=== PATIENT | female | born 1960 | race Caucasian/White ===

== ENCOUNTER 2017-03-14 22:42 | Inpatient (IN) ==
[2017-03-14 23:16] LABS: ABG Base Excess 9.5 MMOL/L (-2.5-2.5); ABG Oxygen Saturation 88.9 % (95-100); ABG PH 7.304 (7.35-7.45); ABG PO2 58.8 MM HG (80-95); ABG TCO2 35.5 MMOL/L (23-27); Allen Test Positive
[2017-03-14] MEDS ORDERED: ETOMIDATE 20 MG/10 ML VIAL IV ONE (23:21)
[2017-03-14] MEDS ORDERED: SUCCINYLCHOLINE 200 MG/10 ML VIAL ONE (23:21)
--- NOTE | 2017-03-14 23:36 | Hospitalist History & Physical ---
Assessment and Plan (1) Acute and chronic respiratory failure ([id number]) Status: Acute Assessment and plan: Unfortunately patient with severe exacerbation of her COPD as evidenced by failed outpatient treatment and the need for intubation Continue steroids IV Solu-Medrol 60 mg every 8 hours Albuterol every 2 hours with Atrovent every 6 hours Change azithromycin to levofloxacin Consult Dr. Gary her squirrel man in the morning for evaluation and management and vent management Check sputum cultures, community acquired pneumonia antigens Follow-up chest x-ray, check ABGs after intubation in the morning Lung protective low tidal volume ventilation strategy Overall I suspect she has a poor prognosis given the severity of her illness and her obvious poor reserve, she continues to smoke Current Visit: Yes Qualifiers: Respiratory failure complication: hypoxia and hypercapnia Qualified Code(s) : J96.21 - Acute and chronic respiratory failure with hypoxia; J96.22 - Acute and chronic respiratory failure with hypercapnia (2) Severe protein-calorie malnutrition Status: Acute Assessment and plan: Malnourished appearance with low albumin, likely secondary to her underlying severe pulmonary disease Current Visit: Yes (3) Elevated brain natriuretic peptide (BNP) level Status: Acute Assessment and plan: No history of heart disease, recent echocardiogram without significant dysfunction. Suspect that the elevated BNP is secondary to COPD related pulmonary hypertension Current Visit: Yes (4) Acute respiratory acidosis Status: Acute Current Visit: Yes (5) Leukocytosis Status: Acute Current Visit: Yes History of Present Illness Chief complaint: Shortness of breath History of present illness: Ms. Morris is a 56 year old female with past medical history of COPD, severe by FEV1 recently, depression/anxiety that presented with a chief complaint of shortness of breath. Onset gradual. Duration about 1 week. Associated with wheezing. Not alleviated by prednisone, azithromycin, and nebulizers which she has been doing since she saw Dr. Gary in clinic on Friday. Her illness has gotten progressively worse until today she presented again for care and was sent to [facility] emergency department for hypoxemia and also there she was found to have hypercapnia worse than her baseline, acute on chronic respiratory acidosis. She was transferred to [facility] for higher level of care after being given 125 mg Solu-Medrol, 3 nebulizer treatments at the other hospital. Upon arrival to our emergency department she was initially reluctant to receive intubation but ultimately consented after an ABG returned a continued acute hypoxemic and hypercapnic respiratory failure and her work of breathing had not improved with prior interventions. She was intubated at the time of my exam. I reviewed the workup performed at both hospitals including lab and imaging data. I discussed her case with emergency department providers. Home Medications Medication Instructions Recorded Confirmed Type ALPRAZolam [Xanax] 0.5 mg PO TID 03/14/17 03/14/17 History Albuterol Sulfate [Proair HFA] 2 puff INH Q4H PRN 03/14/17 03/14/17 History Albuterol/Ipratropium Neb [Duoneb] 3 ml RESP TX RT Q6H PRN 03/14/17 03/14/17 History Budesonide/Formoterol 160-4.5 2 puff INH DAILY 03/14/17 03/14/17 History [Symbicort 160-4.5] Citalopram [CeleXA] 40 mg PO DAILY 03/14/17 03/14/17 History Cyproheptadine HCl 4 mg PO TID 03/14/17 03/14/17 History Gabapentin 600 mg PO TID 03/14/17 03/14/17 History Oxycodone HCl/Acetaminophen 1 each PO Q6H 03/14/17 03/14/17 History [Percocet 10-325 mg Tablet] predniSONE TAB [PredniSONE] 10 mg PO BID 03/14/17 03/14/17 History Allergies Allergy/AdvReac Type Severity Reaction Status Date / Time Amoxicillin Allergy Severe BLISTER Verified 07/17/15 05:29 Medical,Surgical,& Family Hx - Medical History Cardio: History of: Hypertension Respiratory: History of: Asthma, COPD (on home O2), Pneumonia Musculoskeletal: History of: Musculoskeletal Problems Hematology: History of: Anemia - Surgical History Cardiac Surgeries: Sugical HX of: Cardiac Catheterization Abdominal Surgeries: Surgical HX of: Abdominal Surgery, Appendectomy, Cholecystectomy Reproductive Surgeries: Surgical HX of;: Section, Tubal Ligation Orthopedic Surgeries: Surgical HX of;: Orthopedic Surgery (ORIF-right hip, ACL- both knees, arm and elbow) - Family History Family History: Reports;: Family Hypertension - Social History Smoking Status: Current every day smoker Frequency of Alcohol Use: None Type of Drug Use: None ROS unobtainable: due to endotracheal tube Exam - Constitutional Vitals: Period Temp Pulse Resp BP Sys/Rodriguez Pulse Ox Last 24 Hr 98.0 F-98.0 F 97-97 23-23 153-153/86-86 90 General appearance: under weight, other (White female appears much older than stated age) Exam: - Eye Eye exam: [Present: EOMI. Absent: conjunctival injection, scleral icterus Pupils: Present: ALECIA] - ENT ENT exam: [Present: normal external ear exam, normal oropharynx] - Expanded ENT Exam Mouth exam: Present: [moist, ET tube in place] - Neck Neck exam: Present: [normal inspection. Absent: lymphadenopathy, thyromegaly] - Respiratory Respiratory exam: Present: [Coarse with expiratory wheezing diffusely on vent] - Cardiovascular Cardiovascular exam: Present: [regular rate and rhythm]. Absent: [diastolic murmur, systolic murmur] - Expanded Cardiovascular Exam Peripheral pulses: [2+: posterior tibialis (L), posterior tibialis (R)] - GI/Abdominal GI/Abdominal exam: Present: [normal bowel sounds, soft.] Absent: [distended, hyperactive bowel sounds, hypoactive bowel sounds, organomegaly, tenderness, rebound] - Extremities Exam Extremities exam: [Absent: edema] - Neurological Exam Neurological exam: [Present: Sedated with propofol and not following commands, recently intubated] - Skin Skin exam: [Present: warm, dry. Absent: diaphoretic, rash] Results - EKG EKG results: sinus rhythm, normal axis, normal QRS, normal ST/T - Diagnostic Findings Procedure: Chest x-ray: report reviewed by me
[2017-03-14] MEDS ORDERED: PROPOFOL 1,000 MG/100 ML BOTTLE IV ONE (23:47)
--- NOTE | 2017-03-15 00:10 | Emergency Department Note ---
Clovis Storey Brittany, am scribing for, and in the presence of, Charu Wilhelm DO 23:20. IChoco Debra, DO, personally performed the services described in this documentation, ascribed by Jaja Brannon in my presence, and it is both accurate and complete . Arrival - Arrival Chief Complaint: Shortness of Breath ED Nursing Triage Note: C/O Shortness of breath. Onset since last Friday and has been treated with breathing treatments/steroids/antibiotics without relief. Pt has history of COPD. Pt is awake, alert and oriented x 3 at this time. Pt does not wish to be intubated when asked by Dr. Wilhelm Mode of Arrival: Stretcher Limitations: No Limitations Source: Patient, RN Notes Reviewed Time Seen by Provider: 03/14/17 22:45 - History of Present Illness HPI Narrative: Patient is a 56 y/o white female with a history of COPD exacerbation and Chronic Respiratory Failure presenting to the ED by EMS with shortness of breath Last hospitalization for this was on 08/23/15. Per triage note patient has been short of breath for the past week. Patient was seen at primary care clinic on Friday and today for upper respiratory symptoms and shortness of breath. While there today patient received 3 breathing tx's, steroids, and antibiotics. After showing no improvement patient was transferred to local hospital and after showing little to no improvement there patient was sent here for further evaluation. Patient upon ED arrival appears to be very short of breath and is working to breathe which will make her history limited. Daughter and patient are currently discussing about decisions for intubation if needed. No other complaint/pain. Onset (ago): hour(s) Consistency: constant Date of Last Menstrual Period: PM Allergies/Adverse Reactions: Allergies Allergy/AdvReac Type Severity Reaction Status Date / Time Amoxicillin Allergy Severe BLISTER Verified 07/17/15 05:29 Home Medications: Home Medications Medication Instructions Recorded Confirmed Type ALPRAZolam [Xanax] 0.5 mg PO TID 03/14/17 03/14/17 History Albuterol Sulfate [Proair HFA] 2 puff INH Q4H PRN 03/14/17 03/14/17 History Albuterol/Ipratropium Neb [Duoneb] 3 ml RESP TX RT Q6H PRN 03/14/17 03/14/17 History Budesonide/Formoterol 160-4.5 2 puff INH DAILY 03/14/17 03/14/17 History [Symbicort 160-4.5] Citalopram [CeleXA] 40 mg PO DAILY 03/14/17 03/14/17 History Cyproheptadine HCl 4 mg PO TID 03/14/17 03/14/17 History Gabapentin 600 mg PO TID 03/14/17 03/14/17 History Oxycodone HCl/Acetaminophen 1 each PO Q6H 03/14/17 03/14/17 History [Percocet 10-325 mg Tablet] predniSONE TAB [PredniSONE] 10 mg PO BID 03/14/17 03/14/17 History Review of System - Review of System 12 point system: reviewed and no additional remarkable complaints except as stated - Review of System Constitutional: Absent: chills, fever Eyes: Absent: vision change Head/Ears/Nose/Throat: Present: nasal drainage Respiratory: Present: cough, respiratory distress Cardiovascular: Absent: chest pain, palpitations Gastrointestinal: Absent: abdominal pain, nausea, vomiting, diarrhea, constipation Genitourinary female: Absent: dysuria, frequency, urgency Musculoskeletal: Absent: arm pain, back pain, leg pain, neck pain Skin: Absent: rash Neurological: Absent: headache Psychiatric: Absent: anxiety, depression Medical,Surgical,& Family Hx - Medical History Cardio: History of: Hypertension Respiratory: History of: Asthma, COPD (on home O2), Pneumonia Musculoskeletal: History of: Musculoskeletal Problems Hematology: History of: Anemia - Surgical History Cardiac Surgeries: Sugical HX of: Cardiac Catheterization Abdominal Surgeries: Surgical HX of: Abdominal Surgery, Appendectomy, Cholecystectomy Reproductive Surgeries: Surgical HX of;: Section, Tubal Ligation Orthopedic Surgeries: Surgical HX of;: Orthopedic Surgery (ORIF-right hip, ACL- both knees, arm and elbow) - Family History Family History: Reports;: Family Hypertension - Social History Smoking Status: Current every day smoker Frequency of Alcohol Use: None Type of Drug Use: None Exam Vital Signs: Vital Signs Temperature 98.0 F 03/14/17 22:42 Pulse Rate 97 H 03/14/17 22:42 Respiratory Rate 23 03/14/17 22:42 Blood Pressure 153/86 03/14/17 22:42 O2 Sat by Pulse Oximetry 90 L 03/14/17 22:42 - General General appearance: alert, in distress (appears to be working to breathe) - Head Head exam: Present: atraumatic, normocephalic, normal inspection - Eye Eye exam: Present: normal appearance, PERRL, EOMI - ENT ENT exam: Present: normal exam, normal oropharynx - Neck Neck exam: Present: normal inspection, full ROM, trachea midline - Chest Chest inspection: Present: normal inspection, symmetric chest wall rise - Respiratory Respiratory exam: Present: respiratory distress, rhonchi (rhonchi on the left), wheezes (inspiratory and expiratory wheezes bilaterally). Absent: normal lung sounds bilaterally - Cardiovascular Cardiovascular exam: Present: regular rate, normal rhythm, normal heart sounds - Abdominal Exam Abdominal exam: Present: soft, normal bowel sounds - Extremities Exam Extremities exam: Present: normal inspection - Back Exam Back exam: Present: normal inspection - Neurological Exam Neurological exam: Present: alert, oriented X3, CN II-XII intact. Absent: motor sensory deficit - Psychiatric Psychiatric exam: Present: normal affect, normal mood - Skin Skin exam: Present: warm, dry, intact, normal color Course Course Narrative: pt intubated without difficulty. Hospitalist, DR Robles to admit Procedures - Intubation Time out performed: Yes sedative: Etomidate Mg Given: 20 paralytic: Succinylcholine Mg Given: 100 Laryngoscope: Nu ET Tube Size: 7.5 ET Tube Uncuffed: Yes Tube Secured Depth (cm): 23 Tube Secured Location: lips Tube Placement Confirmation: equal breath sounds bilaterally, confirmation detector color change Patient Tolerated Procedure: well, no complications Intubation Complications: other (unable to remove patient's dentures) Results - Labs Lab Results: I have reviewed the patients labs Labs: Laboratory Tests 03/14/17 23:00 ABG pH 7.304 L ABG pCO2 79.0 H* ABG pO2 58.8 L ABG HCO3 33.0 H ABG Total CO2 35.5 H ABG O2 Saturation 88.9 L ABG Base Excess 9.5 H FiO2 32.00 - EKG EKG results: interpreted by SHARMILA MOCTEZUMA - Diagnostic Findings Procedure: Chest x-ray: image reviewed by me (et tube in good placement, no acute path except for increased vascularity) Disposition Clinical Impression: Acute and chronic respiratory failure ([id number]) Case discussed with: patient, patient's family Disposition: Still a Patient Condition: Stable Time of Disposition: 00:00
[2017-03-15 00:21] LABS: Apearance,Urine CLEAR (Clear); Bilirubin,Urine Negative (Negative); Blood, Urine Negative (Negative); Glucose,Urine (UA) Negative (Negative); Hyaline Casts,Urine 2 /LPF (0-3); Ketones,Urine 5 mg/dL (Negative); Mucus,Urine Occasional /LPF (Occasional); Nitrite,Urine Negative (Negative); Protein,Urine 30 MG/DL; RBC,Urine 7 /HPF (0-4); Urine Color Yellow (Yellow); WBC,Urine 2 /HPF (0-6)
[2017-03-15] MEDS ORDERED: ALBUTEROL 2.5 MG/3 ML NEB RESP TX PRN (01:11)
[2017-03-15] MEDS ORDERED: GLUCAGON 1 MG VIAL IM PRN (01:11)
[2017-03-15] MEDS ORDERED: ACETAMINOPHEN 325 MG TABLET PO PRN (01:11)
[2017-03-15] MEDS ORDERED: PROPOFOL 1,000 MG/100 ML BOTTLE IV SCH (01:11)
[2017-03-15] MEDS ORDERED: DEXTROSE 50% 25 GM/50 ML VIAL IV PRN (01:11)
[2017-03-15] MEDS: IPRATROPIUM 500 MCG/2.5 ML NEB RESP TX SCH ×4 (01:34→20:02)
[2017-03-15] MEDS: INSULIN LISPRO 100 UNIT/ML SUBCUT SCH ×4 (02:45→18:35)
[2017-03-15 02:47] LABS: Basophils % 0.2 % (0.0-0.8); Hematocrit 35.2 VOL% (35.7-47.0); Hemoglobin 10.7 GM/DL (12.0-16.0); Immature Granulocytes Absolute 0.19 #; Lymphocytes # 0.6 10*3/uL (1.4-4.0); Lymphocytes % 3.4 % (21.3-54.2); Mean Corpuscular HGB Conc 30.4 GM/DL (32-36); Mean Corpuscular Hemoglobin 29 PG (27-34); Mean Corpuscular Volume 94.6 FL (87-102); Mean Platelet Volume 8.7 FL (9.6-12.0); Monocytes # 0.3 10*3/uL (0.11-0.8); Monocytes % 1.3 % (1.7-12.7); Neutrophils # 17.6 10*3/uL (1.4-7.4); Neutrophils % 94.1 % (38.7-73.9); Platelet Count 282 T/CUMM (130-400); Red Blood Count 3.72 MC/CUMM (3.8-5.5); Red Cell Distribution Width 18.6 % (9.3-17.3); White Blood Count 18.7 T/CUMM (4-12)
[2017-03-15 02:55] LABS: ABG Base Excess 11.6 MMOL/L (-2.5-2.5); ABG HCO3 39.8 MMOL/L (20-26); ABG Oxygen Saturation 95.2 % (95-100); ABG PH 7.349 (7.35-7.45); ABG PO2 74.1 MM HG (80-95); ABG TCO2 42.1 MMOL/L (23-27); Allen Test Positive; Pt O2 Delivery Device Ventilator
[2017-03-15] MEDS: methylPREDNISolone SOD SUC 40 MG/1 ML VIAL IV SCH ×3 (03:04→18:35)
[2017-03-15] MEDS: LEVOFLOXACIN INJ 750 MG in PREMIX 1 EACH IV SCH (03:07)
[2017-03-15 03:21] LABS: Albumin 2.3 G/DL (3.4-5.0); Bilirubin,Total 1.1 MG/DL (0.2-1.0); Calcium 8.3 MG/DL (8.5-10.1); Magnesium 2.1 MG/DL (1.8-2.4); Osmolality,Calculated 285.1 MOS/KG (273-304); Potassium 4.5 MMOL/L (3.5-5.1); Total Protein 5.6 G/DL (6.4-8.3)
[2017-03-15] MEDS: fentaNYL INJ 1,250 MCG in SODIUM CHLORIDE 0.9% 225 ML IV SCH (04:02)
[2017-03-15 04:21] LABS: Band Neutrophils 2 % (0-10); Lymphocytes 2 % (20-55); Myelocytes 1 %; Segmented Neutrophils 95 % (50-85); Total Cells Counted 100
[2017-03-15 04:22] LABS: Anisocytosis 1+; Platelet Estimate Normal
[2017-03-15] MEDS ORDERED: SODIUM CHLORIDE 0.9% 1,000 ML IV ONE (07:51)
--- NOTE | 2017-03-15 07:58 | Pulmonology Consult Note ---
Assessment and Plan (1) Acute and chronic respiratory failure ([id number]) Status: Acute Assessment and plan: She has been on oxygen. Her PCO2 runs around 60 when she is at her baseline. It was up to 80. She may be difficult to wean. Current Visit: Yes Qualifiers: Respiratory failure complication: hypoxia and hypercapnia Qualified Code(s) : J96.21 - Acute and chronic respiratory failure with hypoxia; J96.22 - Acute and chronic respiratory failure with hypercapnia (2) Severe protein-calorie malnutrition Status: Acute Assessment and plan: We will need NG tube feedings Current Visit: Yes (3) COPD exacerbation Status: Acute Assessment and plan: Bronchodilator steroids and empiric antibiotics. Since she has severe COPD would go with Levaquin plus cefepime. Current Visit: No (4) Hypotension Status: Acute Assessment and plan: Presently hypotensive. Has a high BUN to creatinine ratio although her creatinine is normal. Does not appear to be wet. Will give her a bolus of saline. Will try to get off propofol and use Precedex. Current Visit: No History of Present Illness Chief complaint: Respiratory failure History of present illness: Ms. Morris is a 56 year old female who has severe COPD. She is a former smoker up until couple years ago. She has chronically elevated PCO2. She is on oxygen at home. We had seen her in the clinic last week with an exacerbation that apparently has not improved with oral Zithromax and prednisone. She was lethargic and had an elevated PCO2 to about 80 yesterday and was intubated. Presently she is on the ventilator and sedated and not responsive. Her blood pressures in the 70s. She is on fentanyl and propofol. She had an echocardiogram 2 years ago showing normal left ventricular ejection fraction and normal right ventricular pressures. Home Medications Medication Instructions Recorded Confirmed Type ALPRAZolam [Xanax] 0.5 mg PO TID 03/14/17 03/14/17 History Albuterol Sulfate [Proair HFA] 2 puff INH Q4H PRN 03/14/17 03/14/17 History Albuterol/Ipratropium Neb [Duoneb] 3 ml RESP TX RT Q6H PRN 03/14/17 03/14/17 History Budesonide/Formoterol 160-4.5 2 puff INH DAILY 03/14/17 03/14/17 History [Symbicort 160-4.5] Citalopram [CeleXA] 40 mg PO DAILY 03/14/17 03/14/17 History Cyproheptadine HCl 4 mg PO TID 03/14/17 03/14/17 History Gabapentin 600 mg PO TID 03/14/17 03/14/17 History Oxycodone HCl/Acetaminophen 1 each PO Q6H 03/14/17 03/14/17 History [Percocet 10-325 mg Tablet] predniSONE TAB [PredniSONE] 10 mg PO BID 03/14/17 03/14/17 History Allergies Allergy/AdvReac Type Severity Reaction Status Date / Time Amoxicillin Allergy Severe BLISTER Verified 07/17/15 05:29 ROS unobtainable: due to endotracheal tube Exam (Pulmonay) H&P - Constitutional Vitals: Period Temp Pulse Resp BP Sys/Rodriguez Pulse Ox Last 24 Hr 98.0 F-98.9 F 94-113 16-28 73-153/53-86 90-100 Exam: Systolic blood pressure 75. Vital signs otherwise normal. Pupils react to light. Orotracheal tube in place. Neck is supple. Chest reveals prolonged expiratory phase and some expiratory rhonchi. Scattered wheezes as well. Heart normal rate rhythm no murmurs. Abdomen is soft no masses. Extremities no clubbing cyanosis or edema. Medical,Surgical,& Family Hx - Medical History Cardio: History of: Hypertension Respiratory: History of: Asthma, COPD (on home O2), Pneumonia Musculoskeletal: History of: Musculoskeletal Problems Hematology: History of: Anemia - Surgical History Cardiac Surgeries: Sugical HX of: Cardiac Catheterization Abdominal Surgeries: Surgical HX of: Abdominal Surgery, Appendectomy, Cholecystectomy Reproductive Surgeries: Surgical HX of;: Section, Tubal Ligation Orthopedic Surgeries: Surgical HX of;: Orthopedic Surgery (ORIF-right hip, ACL- both knees, arm and elbow, back surgery x3) - Family History Family History: Reports;: Family Hypertension - Social History Smoking Status: Current every day smoker Frequency of Alcohol Use: None Type of Drug Use: None Results - Labs CBC & BMP: 03/15/17 02:01 03/15/17 02:01 Lab Results: I have reviewed the past 24 hour labs - Diagnostic Findings Procedure: Chest x-ray: image reviewed by me (Marked hyperinflation. ET tube good position. Mild infiltrate left base.)
[2017-03-15] MEDS ORDERED: AMINOPHYLLINE 250 MG in SODIUM CHLORIDE 0.9% 100 ML IV ONE (08:01)
[2017-03-15] MEDS: ENOXAPARIN 40 MG/0.4 ML SYRINGE SUBCUT SCH (08:19)
[2017-03-15] MEDS: CITALOPRAM 40 MG TABLET PO SCH (08:20)
[2017-03-15] MEDS: ROFLUMILAST 500 MCG TABLET PO SCH (08:20)
[2017-03-15] MEDS: LANSOPRAZOLE ODT 30 MG TABLET PER TUBE SCH (08:20)
[2017-03-15] MEDS: GABAPENTIN 300 MG CAPSULE PO SCH ×3 (08:20→21:13)
--- NOTE | 2017-03-15 08:59 | XRay Report ---
History is a ET tube placement Comparison earlier the same day Chest one view 03/14/2017 at 11:56 PM The heart is normal in size. An ET tube has been placed the tip at T4. Lung markings similar prior studies without consolidation. Density overlying the left apex grossly similar on prior studies. Well-defined Lucency overlying the proximal left humerus present on multiple prior exams Impression: Interval ET tube placement otherwise little change PROCEDURE INTERPRETED AT [facility] DEPARTMENT OF RADIOLOGY Final Report Signed by: Dr. Chiquis Fofana
[2017-03-15] MEDS ORDERED: PROPOFOL 0 MG/0 ML BOTTLE IV ONE (09:28)
--- NOTE | 2017-03-15 09:33 | XRay Report ---
History short of breath 03/15/2017 at 3:09 AM Comparison 12/12/2016 The heart is normal in size. ET tube tip is at T4. NG tube now traverses the chest the tip of which is not seen There has been no development of elevation left diaphragm with mild increasing patchy opacities in the left lung base with additional mildly increasing diffuse hazy bilateral pulmonary opacities. Impression: 1. Interval development of mild diffuse bilateral infiltrates versus edema and mildly increasing left basilar atelectasis. PROCEDURE INTERPRETED AT [facility] DEPARTMENT OF RADIOLOGY Final Report Signed by: Dr. Chiquis Fofana
[2017-03-15] MEDS: DEXMEDETOMIDINE 200 MCG in SODIUM CHLORIDE 0.9% 48 ML IV SCH ×3 (09:34→21:46)
[2017-03-15] MEDS: AMINOPHYLLINE 500 MG in SODIUM CHLORIDE 0.9% 480 ML IV SCH (10:25)
[2017-03-15] MEDS: CEFEPIME 1,000 MG in SODIUM CHLORIDE 0.9% 100 ML IV SCH ×2 (10:44→21:13)
--- NOTE | 2017-03-15 12:55 | Hospitalist Progress Note ---
Assessment and Plan - Time spent with patient Time spent with patient: Greater than 30 minutes (1) Acute and chronic respiratory failure ([id number]) Status: Acute Assessment and plan: Continue Vent support. Pulm f/u Current Visit: Yes Qualifiers: Respiratory failure complication: hypoxia and hypercapnia Qualified Code(s) : J96.21 - Acute and chronic respiratory failure with hypoxia; J96.22 - Acute and chronic respiratory failure with hypercapnia (2) COPD exacerbation Status: Resolved Assessment and plan: On vent. On IV antibiotics, solumedrol and resp care. Pulm f/u. Current Visit: No (3) Severe protein-calorie malnutrition Status: Acute Assessment and plan: Start NGT feeding today. Current Visit: Yes (4) Acute respiratory acidosis Status: Acute Assessment and plan: ABG periodically. Current Visit: Yes (5) Leukocytosis Status: Acute Assessment and plan: CBC in am. On IV antibiotics. F/u culture results. Current Visit: Yes Hospitalist: Subjective Interval history: On Vent with CPAP. Comfortable. Follow command. On NGT feeding. Pulm f/u. No fever, vomiting, diarrhea or hematuria reported per staff certified nurse midwife. Exam - Constitutional Vitals: Period Temp Pulse Resp BP Sys/Rodriguez Pulse Ox Last 24 Hr 98.0 F-98.9 F 83-113 16-28 73-153/53-86 90-100 Exam: GENERAL: On Vent with CPAP. Awake. HEENT: Pupils equally round and reactive to light, conjunctivae clear. ET tube in place. Normal lips, teeth and gums. NECK: Supple without mass. HEART: RRR, no murmur. CHEST: Normal shape, fair air movement, no retractions. CV: RRR, no murmurs, 2+ peripheral pulses LUNGS: Decreased breath sound bilaterally. ABDOMEN: Soft, nontender, and no hepatosplenomegaly. SKIN: No rash or edema. LYMPH: No anterior or posterior cervical, or supraclavicular lymphadenopathy. NEURO: Can move hands and feet. Results - Labs CBC & BMP: 03/15/17 02:01 03/15/17 02:01
--- NOTE | 2017-03-15 14:18 | EKG Report ---
Stationary ECG Study [facility] ER Test Date: 03/14/2017 10:50:56 PM Pat Name: PILY DOWNING Department: Room: 116 Gender: F Vice President Compliance: : 1960 Requested by: Charu Wilhelm Order Number: [id number] Reading MD: VIKY HENSLEY Intervals [place] Rate: 95 P: 76 WI: 145 QRS: 83 QRSD: 84 T: 84 QT: 327 QTc: 380 Interpretive Statements SINUS RHYTHM Electronically Signed On 03-16-17 15:31:15 CDT by VIKY HENSLEY [email or web address]
[2017-03-16] MEDS: fentaNYL INJ 1,250 MCG in SODIUM CHLORIDE 0.9% 225 ML IV SCH ×4 (00:02→20:23)
[2017-03-16] MEDS: IPRATROPIUM 500 MCG/2.5 ML NEB RESP TX SCH ×4 (00:07→19:34)
[2017-03-16] MEDS: LEVOFLOXACIN INJ 750 MG in PREMIX 1 EACH IV SCH (02:22)
[2017-03-16] MEDS: methylPREDNISolone SOD SUC 40 MG/1 ML VIAL IV SCH ×3 (02:22→18:26)
[2017-03-16 03:02] LABS: ABG Base Excess 8.6 MMOL/L (-2.5-2.5); ABG Oxygen Saturation 98.5 % (95-100); ABG PCO2 44.8 MM HG (35-48); ABG PH 7.485 (7.35-7.45); ABG TCO2 34.4 MMOL/L (23-27); Allen Test Positive; Pt O2 Delivery Device Ventilator
[2017-03-16] MEDS: DEXMEDETOMIDINE 200 MCG in SODIUM CHLORIDE 0.9% 48 ML IV SCH ×2 (04:58→09:32)
[2017-03-16] MEDS: INSULIN LISPRO 100 UNIT/ML SUBCUT SCH ×4 (06:33→18:26)
--- NOTE | 2017-03-16 06:39 | Pulmonology Progress Note ---
Pulmonary - PN: Subj Interval history: This 56-year-old white female has severe COPD. She is on home oxygen. An acute exacerbation over week that got worse. Was intubated and admitted yesterday. This morning she is much more alert. ABGs much improved. We will start CPAP and see if we can get her extubated. Exam (Progress Note) - Constitutional Vitals: Period Temp Pulse Resp BP Sys/Rodriguez Pulse Ox Last 24 Hr 97.7 F-99.0 F 52-110 14-27 86-142/57-83 69-100 Exam: Patient's alert and responsive. Vital signs are normal. Pupils react to light. Orotracheal tube in place. Neck is supple. Chest reveals prolonged expiratory phase but I do not hear any wheezing today. There are a few scattered rhonchi. Heart normal rate rhythm no murmurs. Abdomen soft nontender no masses. Bowel sounds present. Extremities no clubbing cyanosis edema. Results - Labs CBC & BMP: 03/15/17 02:01 03/15/17 02:01 Lab Results: I have reviewed the past 24 hour labs - Diagnostic Findings Procedure: Chest x-ray: image reviewed by me (Hyperinflation. ET tube good position. Mild scarring at left base.) Assessment and Plan (1) Acute and chronic respiratory failure ([id number]) Status: Acute Assessment and plan: She has been on oxygen. Her PCO2 runs around 60 when she is at her baseline. It was up to 80. She may be difficult to wean. 03/16/2017 ABGs improved. PCO2 down to 44. Needs a little Diamox. Reduce FiO2. Start weaning today. May be able to get her extubated today but probably will take another day. Current Visit: Yes Qualifiers: Respiratory failure complication: hypoxia and hypercapnia Qualified Code(s) : J96.21 - Acute and chronic respiratory failure with hypoxia; J96.22 - Acute and chronic respiratory failure with hypercapnia (2) Severe protein-calorie malnutrition Status: Acute Assessment and plan: We will need NG tube feedings 03/16/2017 continuing NG feeding Current Visit: Yes (3) COPD exacerbation Status: Acute Assessment and plan: Bronchodilator steroids and empiric antibiotics. Since she has severe COPD would go with Levaquin plus cefepime. 03/16/2017 continuing intravenous corticosteroids and antibiotics. Broad- spectrum due to her COPD. Continuing bronchodilators. Current Visit: No (4) Hypotension Status: Acute Assessment and plan: Presently hypotensive. Has a high BUN to creatinine ratio although her creatinine is normal. Does not appear to be wet. Will give her a bolus of saline. Will try to get off propofol and use Precedex. 03/16/2017 systolic blood pressure 130. Current Visit: No
[2017-03-16 08:17] LABS: ABG Base Excess 6.4 MMOL/L (-2.5-2.5); ABG HCO3 30.1 MMOL/L (20-26); ABG Oxygen Saturation 90.1 % (95-100); ABG PCO2 51.7 MM HG (35-48); ABG PH 7.405 (7.35-7.45); ABG PO2 61.6 MM HG (80-95); ABG TCO2 29.3 MMOL/L (23-27)
--- NOTE | 2017-03-16 08:47 | Hospitalist Progress Note ---
Assessment and Plan - Time spent with patient Time spent with patient: Greater than 30 minutes (1) Acute and chronic respiratory failure ([id number]) Status: Acute Assessment and plan: Improving. Continue Vent support with CPAP. Adjust vent setting per Pulm. Pulm f/u Current Visit: Yes Qualifiers: Respiratory failure complication: hypoxia and hypercapnia Qualified Code(s) : J96.21 - Acute and chronic respiratory failure with hypoxia; J96.22 - Acute and chronic respiratory failure with hypercapnia (2) COPD exacerbation Status: Acute Assessment and plan: On vent with CPAP. On IV antibiotics, solumedrol and resp care. Pulm f/u. Current Visit: No (3) Severe protein-calorie malnutrition Status: Acute Assessment and plan: Start NGT feeding today. Consult dietitian in am. Current Visit: Yes (4) Acute respiratory acidosis Status: Acute Assessment and plan: ABG periodically. Current Visit: Yes (5) Leukocytosis Status: Acute Assessment and plan: CBC in am. On IV antibiotics. F/u culture results. Current Visit: Yes Hospitalist: Subjective Interval history: No overnight acute event. On Vent with CPAP. Comfortable. Follow command. On NGT feeding. Pulm f/u. No fever, vomiting, diarrhea or hematuria reported per staff radiation therapist. Exam - Constitutional Vitals: Period Temp Pulse Resp BP Sys/Rodriguez Pulse Ox Last 24 Hr 97.7 F-99.0 F 52-110 14-27 90-142/57-83 69-100 Exam: GENERAL: On Vent with CPAP. Awake. HEENT: Pupils equally round and reactive to light, conjunctivae clear. ET tube in place. Normal lips, teeth and gums. NECK: Supple without mass. HEART: RRR, no murmur. CHEST: Normal shape, fair air movement, no retractions. CV: RRR, no murmurs, 2+ peripheral pulses LUNGS: Scattered rhonchi. No wheezing. ABDOMEN: Soft, nontender, and no hepatosplenomegaly. SKIN: No rash or edema. LYMPH: No anterior or posterior cervical, or supraclavicular lymphadenopathy. NEURO: Can move hands and feet. Results - Labs CBC & BMP: 03/15/17 02:01 03/15/17 02:01 - Diagnostic Findings Procedure: Chest x-ray: report reviewed by me (Reviewed by me today, has hyperinflation)
--- NOTE | 2017-03-16 09:16 | XRay Report ---
Portable chest. Indication: Ventilated patient. Comparison: March 15, 2017. The heart is normal in size. An endotracheal tube and nasogastric tube are in satisfactory position. The pulmonary vasculature is normal. Some improvement is present in the aeration at the left lung base. Scattered interstitial infiltrates at the bases persist. Remote posttraumatic change of the left shoulder. King rods in the spinal column. Impression: Basilar infiltrates persist, some improvement at the left base. PROCEDURE INTERPRETED AT [facility] DEPARTMENT OF RADIOLOGY Final Report Signed by: Dr. Cat Fofana
[2017-03-16] MEDS: LANSOPRAZOLE ODT 30 MG TABLET PER TUBE SCH (09:52)
[2017-03-16] MEDS: CITALOPRAM 40 MG TABLET PO SCH (09:52)
[2017-03-16] MEDS: ENOXAPARIN 40 MG/0.4 ML SYRINGE SUBCUT SCH (09:52)
[2017-03-16] MEDS: GABAPENTIN 300 MG CAPSULE PO SCH ×3 (09:52→21:37)
[2017-03-16] MEDS: ROFLUMILAST 500 MCG TABLET PO SCH (09:54)
[2017-03-16] MEDS: CEFEPIME 1,000 MG in SODIUM CHLORIDE 0.9% 100 ML IV SCH ×2 (09:55→21:37)
[2017-03-16] MEDS: AMINOPHYLLINE 500 MG in SODIUM CHLORIDE 0.9% 480 ML IV SCH (09:58)
[2017-03-16] MEDS: DEXMEDETOMIDINE 400 MCG in SODIUM CHLORIDE 0.9% 96 ML IV SCH (11:44)
[2017-03-17] MEDS: IPRATROPIUM 500 MCG/2.5 ML NEB RESP TX SCH ×4 (00:06→20:50)
[2017-03-17] MEDS: INSULIN LISPRO 100 UNIT/ML SUBCUT SCH ×4 (01:43→18:12)
[2017-03-17] MEDS: LEVOFLOXACIN INJ 750 MG in PREMIX 1 EACH IV SCH (02:41)
[2017-03-17] MEDS: methylPREDNISolone SOD SUC 40 MG/1 ML VIAL IV SCH ×3 (02:41→18:12)
[2017-03-17 02:48] LABS: ABG Base Excess 2.5 MMOL/L (-2.5-2.5); ABG HCO3 26.6 MMOL/L (20-26); ABG PCO2 41.1 MM HG (35-48); ABG PH 7.425 (7.35-7.45); ABG PO2 83.7 MM HG (80-95); ABG TCO2 24.8 MMOL/L (23-27); Allen Test Positive; Pt O2 Delivery Device Ventilator
[2017-03-17] MEDS: DEXMEDETOMIDINE 400 MCG in SODIUM CHLORIDE 0.9% 96 ML IV SCH ×2 (02:51→09:12)
[2017-03-17] MEDS: fentaNYL INJ 1,250 MCG in SODIUM CHLORIDE 0.9% 225 ML IV SCH ×2 (05:17→05:18)
[2017-03-17 07:24] LABS: Calcium 8.1 MG/DL (8.5-10.1); Magnesium 2.3 MG/DL (1.8-2.4); Osmolality,Calculated 277.8 MOS/KG (273-304); Phosphorous 2.8 MG/DL (2.5-4.9); Potassium 4.1 MMOL/L (3.5-5.1); Prealbumin 22.5 MG/DL (20-40)
[2017-03-17 07:30] LABS: Calcium 8.4 MG/DL (8.5-10.1); Magnesium 2.3 MG/DL (1.8-2.4); Potassium 4.4 MMOL/L (3.5-5.1)
--- NOTE | 2017-03-17 07:34 | Pulmonology Progress Note ---
Pulmonary - PN: Subj Interval history: This 56-year-old white female has severe COPD. She is on home oxygen. An acute exacerbation over week that got worse. Was intubated and admitted yesterday. This morning she is much more alert. ABGs much improved. We will start CPAP and see if we can get her extubated. 03/17/2017 patient did well with CPAP yesterday. PCO2 is now down to normal. Will try to get her extubated this morning Exam (Progress Note) - Constitutional Vitals: Period Temp Pulse Resp BP Sys/Rodriguez Pulse Ox Last 24 Hr 97.8 F-98.4 F 51-88 14-27 91-138/50-80 92-100 Exam: Patient's alert and responsive. Vital signs are normal. Pupils react to light. Orotracheal tube in place. Neck is supple. Chest reveals prolonged expiratory phase but I do not hear any wheezing today. There are a few scattered rhonchi. Heart normal rate rhythm no murmurs. Abdomen soft nontender no masses. Bowel sounds present. Extremities no clubbing cyanosis edema. Results - Labs CBC & BMP: 03/15/17 02:01 03/17/17 06:29 Lab Results: I have reviewed the past 24 hour labs - Diagnostic Findings Procedure: Chest x-ray: image reviewed by me (Hyperinflation. ET tube good position. Minimal left basilar infiltrate) Assessment and Plan (1) Acute and chronic respiratory failure ([id number]) Status: Acute Assessment and plan: She has been on oxygen. Her PCO2 runs around 60 when she is at her baseline. It was up to 80. She may be difficult to wean. 03/16/2017 ABGs improved. PCO2 down to 44. Needs a little Diamox. Reduce FiO2. Start weaning today. May be able to get her extubated today but probably will take another day. 03/17/2017 PCO2 down to normal. Should be able to extubate today. Current Visit: Yes Qualifiers: Respiratory failure complication: hypoxia and hypercapnia Qualified Code(s) : J96.21 - Acute and chronic respiratory failure with hypoxia; J96.22 - Acute and chronic respiratory failure with hypercapnia (2) Severe protein-calorie malnutrition Status: Acute Assessment and plan: We will need NG tube feedings 03/16/2017 continuing NG feeding 03/17/2017 continuing management per NG tube. Current Visit: Yes (3) COPD exacerbation Status: Acute Assessment and plan: Bronchodilator steroids and empiric antibiotics. Since she has severe COPD would go with Levaquin plus cefepime. 03/16/2017 continuing intravenous corticosteroids and antibiotics. Broad- spectrum due to her COPD. Continuing bronchodilators. 03/17/2017 no active bronchospasm. Continue current medications. Current Visit: No (4) Hypotension Status: Acute Assessment and plan: Presently hypotensive. Has a high BUN to creatinine ratio although her creatinine is normal. Does not appear to be wet. Will give her a bolus of saline. Will try to get off propofol and use Precedex. 03/16/2017 systolic blood pressure 130. 03/17/2017 blood pressure well controlled. Current Visit: No
--- NOTE | 2017-03-17 08:10 | XRay Report ---
Referring Physician: Joel Gary MD Exam: XR chest 1V portable Date: March 17, 2017 at 3:01 AM Reason: On ventilator Comparison: Chest one view portable March 16, 2017 Findings: An endotracheal tube and feeding tube are again in place. The cardiac silhouette is normal in size, but there is calcified plaque at the thoracic aorta. There are minimal opacities at both lung bases, mainly on the left. This is favored to represent atelectasis, but pneumonia is not excluded. No pneumothorax or definite pleural fluid is identified. The osseous structures appear stable with surgical fusion at the lower thoracic and upper lumbar spine. Impression: There has been no significant change. PROCEDURE INTERPRETED AT [facility] DEPARTMENT OF RADIOLOGY Final Report Signed by: Dr. Christiane Carvajal
[2017-03-17 09:13] LABS: Allen Test Positive; Pt O2 Delivery Device Ventilator
[2017-03-17 09:14] LABS: ABG Base Excess -1.2 MMOL/L (-2.5-2.5); ABG HCO3 23.4 MMOL/L (20-26); ABG Oxygen Saturation 96.6 % (95-100); ABG PCO2 45.7 MM HG (35-48); ABG PH 7.341 (7.35-7.45); ABG TCO2 22.8 MMOL/L (23-27)
[2017-03-17] MEDS: ROFLUMILAST 500 MCG TABLET PO SCH (09:21)
[2017-03-17] MEDS: CITALOPRAM 40 MG TABLET PO SCH (09:21)
[2017-03-17] MEDS: LANSOPRAZOLE ODT 30 MG TABLET PER TUBE SCH (09:21)
[2017-03-17] MEDS: GABAPENTIN 300 MG CAPSULE PO SCH ×3 (09:21→20:35)
[2017-03-17] MEDS: ENOXAPARIN 40 MG/0.4 ML SYRINGE SUBCUT SCH (09:21)
[2017-03-17] MEDS: AMINOPHYLLINE 500 MG in SODIUM CHLORIDE 0.9% 480 ML IV SCH (09:22)
[2017-03-17] MEDS: CEFEPIME 1,000 MG in SODIUM CHLORIDE 0.9% 100 ML IV SCH ×2 (09:22→21:53)
[2017-03-17] MEDS: diphenhydrAMINE 50 MG/1 ML VIAL IV PRN ×3 (10:19→22:36)
[2017-03-17 11:27] LABS: ABG Base Excess -0.6 MMOL/L (-2.5-2.5); ABG HCO3 24.3 MMOL/L (20-26); ABG Oxygen Saturation 93.9 % (95-100); ABG PCO2 41.2 MM HG (35-48); ABG PH 7.389 (7.35-7.45); ABG PO2 68.8 MM HG (80-95); ABG TCO2 25.6 MMOL/L (23-27); Allen Test Positive
[2017-03-17] MEDS ORDERED: oxyCODONE/ACETAMINOPHEN 5-325 MG TABLET PO PRN (13:37)
--- NOTE | 2017-03-17 13:40 | Hospitalist Progress Note ---
Assessment and Plan (1) COPD exacerbation Status: Acute Assessment and plan: The patient's symptoms are improved today after treatment overnight. The patient is ready to make transition to oral medications. We will restart the patient's home Percocet. I reviewed the plan of care with the patient and her the bedside. We anticipate her being well enough to move to the floor tomorrow. Current Visit: No (2) Acute and chronic respiratory failure ([id number]) Status: Acute Current Visit: Yes Qualifiers: Respiratory failure complication: hypoxia and hypercapnia Qualified Code(s) : J96.21 - Acute and chronic respiratory failure with hypoxia; J96.22 - Acute and chronic respiratory failure with hypercapnia Hospitalist: Subjective Interval history: The patient has been intubated since admission for metabolic encephalopathy. The patient has improved her affect and was extubated this morning. The patient is breathing comfortably well today. I reviewed the plan of care with the patient and her at the bedside. Exam - Constitutional Vitals: Period Temp Pulse Resp BP Sys/Rodriguez Pulse Ox Last 24 Hr 97.8 F-98 F 51-82 14-30 91-145/50-80 93-100 Exam: Constitutional System: Mild distress. Frail and underweight. No tremulousness. Head: Normocephalic, atraumatic. Ears, Nose and Throat System: No evidence of Otitis or Mastoiditis. No epistaxis or discharge Eyes System: Pupils equal, round, and reactive. Extraocular muscles intact. Neck: Supple, without adenopathy, No jugular venous distention. No thyromegaly , neck mass, or prior surgery apparent. Respiratory System: Chest clear to auscultation. Cardiovascular System: Heart with regular rate and rhythm. No murmur. GI System: Abdomen soft, nontender. Normo active bowel sounds present. Musculoskeletal System: limbs with no pedal edema. Full distal pulses. Results - Labs CBC & BMP: 03/15/17 02:01 03/17/17 06:29 Lab Results: I have reviewed the past 24 hour labs
[2017-03-17] MEDS: DESITIN 4OZ/NYSTATIN 15 GRAM MIXTURE PASTE TOP SCH ×2 (15:31→20:35)
[2017-03-17] MEDS: oxyCODONE/ACETAMINOPHEN 5-325 MG TABLET PO PRN (20:36)
[2017-03-18] MEDS: IPRATROPIUM 500 MCG/2.5 ML NEB RESP TX SCH ×4 (00:12→20:40)
[2017-03-18] MEDS: INSULIN LISPRO 100 UNIT/ML SUBCUT SCH (00:36)
[2017-03-18] MEDS: oxyCODONE/ACETAMINOPHEN 5-325 MG TABLET PO PRN ×4 (02:23→21:14)
[2017-03-18] MEDS: methylPREDNISolone SOD SUC 40 MG/1 ML VIAL IV SCH ×3 (02:45→16:56)
[2017-03-18] MEDS: LEVOFLOXACIN INJ 750 MG in PREMIX 1 EACH IV SCH (02:50)
[2017-03-18] MEDS ORDERED: methylPREDNISolone SOD SUC 40 MG/1 ML VIAL IV SCH (07:31)
--- NOTE | 2017-03-18 07:35 | Pulmonology Progress Note ---
Pulmonary - PN: Subj Interval history: This 56-year-old white female has severe COPD. She is on home oxygen. An acute exacerbation over week that got worse. Was intubated and admitted yesterday. This morning she is much more alert. ABGs much improved. We will start CPAP and see if we can get her extubated. 03/17/2017 patient did well with CPAP yesterday. PCO2 is now down to normal. Will try to get her extubated this morning 03/18/2017 patient was extubated yesterday without difficulty. She is taking clear liquids for supper. She has some mild nausea this morning otherwise feeling better. She has grown Klebsiella and Pseudomonas from bronchial washings. She is well covered with cefepime and Levaquin. She could go to the floor today. Theophylline level is low. Stopping Aminophyllin. Continuing Daliresp. Need to watch that because it can cause some nausea. Exam (Progress Note) - Constitutional Vitals: Period Temp Pulse Resp BP Sys/Rodriguez Pulse Ox Last 24 Hr 97.9 F-98.6 F 56-82 15-30 103-148/55-88 93-100 Exam: Patient's alert and responsive. Seems oriented. Wearing nasal oxygen. Vital signs are normal. Pupils react to light. Neck is supple. Chest reveals prolonged expiratory phase but I do not hear any wheezing today. There are a few scattered rhonchi. Heart normal rate rhythm no murmurs. Abdomen soft nontender no masses. Bowel sounds present. Extremities no clubbing cyanosis edema. Results - Labs CBC & BMP: 03/15/17 02:01 03/17/17 06:29 Lab Results: I have reviewed the past 24 hour labs Assessment and Plan (1) Acute and chronic respiratory failure ([id number]) Status: Acute Assessment and plan: She has been on oxygen. Her PCO2 runs around 60 when she is at her baseline. It was up to 80. She may be difficult to wean. 03/16/2017 ABGs improved. PCO2 down to 44. Needs a little Diamox. Reduce FiO2. Start weaning today. May be able to get her extubated today but probably will take another day. 03/17/2017 PCO2 down to normal. Should be able to extubate today. 03/18/2017 patient has done well postextubation. Continuing low flow oxygen. Current Visit: Yes Qualifiers: Respiratory failure complication: hypoxia and hypercapnia Qualified Code(s) : J96.21 - Acute and chronic respiratory failure with hypoxia; J96.22 - Acute and chronic respiratory failure with hypercapnia (2) Severe protein-calorie malnutrition Status: Acute Assessment and plan: We will need NG tube feedings 03/16/2017 continuing NG feeding 03/17/2017 continuing management per NG tube. 03/18/2017 progress diet orally. Current Visit: Yes (3) COPD exacerbation Status: Acute Assessment and plan: Bronchodilator steroids and empiric antibiotics. Since she has severe COPD would go with Levaquin plus cefepime. 03/16/2017 continuing intravenous corticosteroids and antibiotics. Broad- spectrum due to her COPD. Continuing bronchodilators. 03/17/2017 no active bronchospasm. Continue current medications. 03/18/2017 bronchospasm improving. Reduce steroids. We have also added Daliresp for long-term treatment. Watch for nausea. Current Visit: No (4) Hypotension Status: Acute Assessment and plan: Presently hypotensive. Has a high BUN to creatinine ratio although her creatinine is normal. Does not appear to be wet. Will give her a bolus of saline. Will try to get off propofol and use Precedex. 03/16/2017 systolic blood pressure 130. 03/17/2017 blood pressure well controlled. 03/18/2017 systolic blood pressure in 140s now. Current Visit: No
[2017-03-18] MEDS: GABAPENTIN 300 MG CAPSULE PO SCH ×3 (08:52→21:08)
[2017-03-18] MEDS: DESITIN 4OZ/NYSTATIN 15 GRAM MIXTURE PASTE TOP SCH ×2 (08:52→21:08)
[2017-03-18] MEDS: ROFLUMILAST 500 MCG TABLET PO SCH (08:52)
[2017-03-18] MEDS: ENOXAPARIN 40 MG/0.4 ML SYRINGE SUBCUT SCH (08:52)
[2017-03-18] MEDS: CITALOPRAM 40 MG TABLET PO SCH (08:52)
[2017-03-18] MEDS: LANSOPRAZOLE ODT 30 MG TABLET PER TUBE SCH (08:52)
[2017-03-18] MEDS: diphenhydrAMINE 50 MG/1 ML VIAL IV PRN (10:50)
[2017-03-18] MEDS: CEFEPIME 1,000 MG in SODIUM CHLORIDE 0.9% 100 ML IV SCH ×2 (11:03→21:41)
--- NOTE | 2017-03-18 13:27 | Hospitalist Progress Note ---
Assessment and Plan (1) COPD exacerbation Status: Acute Assessment and plan: The patient's symptoms are improved today after treatment overnight. The patient is ready to make transition to oral medications. We will restart the patient's home Percocet. I reviewed the plan of care with the patient and her the bedside. Transfer orders have been written to send her to the floor. Current Visit: No (2) Acute and chronic respiratory failure ([id number]) Status: Acute Current Visit: Yes Qualifiers: Respiratory failure complication: hypoxia and hypercapnia Qualified Code(s) : J96.21 - Acute and chronic respiratory failure with hypoxia; J96.22 - Acute and chronic respiratory failure with hypercapnia Hospitalist: Subjective Interval history: This 56-year-old lady was admitted to intensive care unit due to COPD exacerbation requiring chemical ventilation. She was weaned from the ventilator this morning and extubated. The patient complains of cough with rectus abdominis tenderness due to coughing. The patient takes Percocet daily and request restarting her Xanax. The patient should be ready to go to the floor. Exam - Constitutional Vitals: Period Temp Pulse Resp BP Sys/Rodriguez Pulse Ox Last 24 Hr 97.9 F-98.6 F 59-94 15-30 103-148/55-88 94-100 Exam: Constitutional System: Mild distress. Frail and underweight. No tremulousness. Head: Normocephalic, atraumatic. Ears, Nose and Throat System: No evidence of Otitis or Mastoiditis. No epistaxis or discharge Eyes System: Pupils equal, round, and reactive. Extraocular muscles intact. Neck: Supple, without adenopathy, No jugular venous distention. No thyromegaly , neck mass, or prior surgery apparent. Respiratory System: Chest clear to auscultation. Cardiovascular System: Heart with regular rate and rhythm. No murmur. GI System: Abdomen soft, nontender. Normo active bowel sounds present. Musculoskeletal System: limbs with no pedal edema. Full distal pulses. Results - Labs CBC & BMP: 03/15/17 02:01 03/17/17 06:29 Lab Results: I have reviewed the past 24 hour labs
[2017-03-18] MEDS: ALPRAZolam 0.5 MG TABLET PO PRN (14:23)
[2017-03-19] MEDS: IPRATROPIUM 500 MCG/2.5 ML NEB RESP TX SCH ×4 (00:56→19:52)
[2017-03-19] MEDS: methylPREDNISolone SOD SUC 40 MG/1 ML VIAL IV SCH ×3 (01:54→20:52)
[2017-03-19] MEDS: LEVOFLOXACIN INJ 750 MG in PREMIX 1 EACH IV SCH (01:57)
[2017-03-19] MEDS: oxyCODONE/ACETAMINOPHEN 5-325 MG TABLET PO PRN ×4 (02:49→22:07)
[2017-03-19 05:15] LABS: Basophils % 0.1 % (0.0-0.8); Hematocrit 28.1 VOL% (35.7-47.0); Hemoglobin 9.1 GM/DL (12.0-16.0); Immature Granulocytes % 2.4 %; Immature Granulocytes Absolute 0.25 #; Lymphocytes # 0.6 10*3/uL (1.4-4.0); Lymphocytes % 5.5 % (21.3-54.2); Mean Corpuscular HGB Conc 32.4 GM/DL (32-36); Mean Corpuscular Hemoglobin 29 PG (27-34); Mean Corpuscular Volume 90.4 FL (87-102); Mean Platelet Volume 8.4 FL (9.6-12.0); Monocytes # 0.3 10*3/uL (0.11-0.8); Monocytes % 2.9 % (1.7-12.7); Neutrophils # 9.3 10*3/uL (1.4-7.4); Neutrophils % 89.1 % (38.7-73.9); Platelet Count 300 T/CUMM (130-400); Red Blood Count 3.11 MC/CUMM (3.8-5.5); Red Cell Distribution Width 17.6 % (9.3-17.3); White Blood Count 10.5 T/CUMM (4-12)
[2017-03-19 05:51] LABS: Calcium 7.8 MG/DL (8.5-10.1); Magnesium 2.3 MG/DL (1.8-2.4); Osmolality,Calculated 291.3 MOS/KG (273-304); Potassium 3.7 MMOL/L (3.5-5.1)
[2017-03-19] MEDS: CEFEPIME 1,000 MG in SODIUM CHLORIDE 0.9% 100 ML IV SCH ×2 (08:58→20:53)
[2017-03-19] MEDS: ENOXAPARIN 40 MG/0.4 ML SYRINGE SUBCUT SCH (08:59)
[2017-03-19] MEDS: CITALOPRAM 40 MG TABLET PO SCH (08:59)
[2017-03-19] MEDS: LANSOPRAZOLE ODT 30 MG TABLET PER TUBE SCH (08:59)
[2017-03-19] MEDS: GABAPENTIN 300 MG CAPSULE PO SCH ×3 (08:59→20:53)
[2017-03-19] MEDS: DESITIN 4OZ/NYSTATIN 15 GRAM MIXTURE PASTE TOP SCH ×2 (09:01→20:53)
[2017-03-19] MEDS: ROFLUMILAST 500 MCG TABLET PO SCH (09:13)
--- NOTE | 2017-03-19 09:26 | Pulmonology Progress Note ---
Pulmonary - PN: Subj Interval history: This 56-year-old white female has severe COPD. She is on home oxygen. An acute exacerbation over week that got worse. Was intubated and admitted yesterday. This morning she is much more alert. ABGs much improved. We will start CPAP and see if we can get her extubated. 03/17/2017 patient did well with CPAP yesterday. PCO2 is now down to normal. Will try to get her extubated this morning 03/18/2017 patient was extubated yesterday without difficulty. She is taking clear liquids for supper. She has some mild nausea this morning otherwise feeling better. She has grown Klebsiella and Pseudomonas from bronchial washings. She is well covered with cefepime and Levaquin. She could go to the floor today. Theophylline level is low. Stopping Aminophyllin. Continuing Daliresp. Need to watch that because it can cause some nausea. 03/19/2017 patient now on 5 E. She is coughing a good bit and short of breath with effort but is better. She is alert and I think we can start reducing her medications. Probably still needs IV meds another day or 2. Exam (Progress Note) - Constitutional Vitals: Period Temp Pulse Resp BP Sys/Rodriguez Pulse Ox Last 24 Hr 97.2 F-98.1 F 77-109 18-30 110-141/66-86 90-100 Exam: Patient's alert and responsive. Seems oriented. Wearing nasal oxygen. Vital signs are normal. Pupils react to light. Neck is supple. Chest reveals prolonged expiratory phase but I do not hear any wheezing today. There are a few scattered rhonchi. Heart normal rate rhythm no murmurs. Abdomen soft nontender no masses. Bowel sounds present. Extremities no clubbing cyanosis edema. Little change from yesterday. Results - Labs CBC & BMP: 03/19/17 04:53 03/19/17 04:53 Lab Results: I have reviewed the past 24 hour labs Assessment and Plan (1) Acute and chronic respiratory failure ([id number]) Status: Acute Assessment and plan: She has been on oxygen. Her PCO2 runs around 60 when she is at her baseline. It was up to 80. She may be difficult to wean. 03/16/2017 ABGs improved. PCO2 down to 44. Needs a little Diamox. Reduce FiO2. Start weaning today. May be able to get her extubated today but probably will take another day. 03/17/2017 PCO2 down to normal. Should be able to extubate today. 03/18/2017 patient has done well postextubation. Continuing low flow oxygen. 03/19/2017 Will reduce Solu-Medrol a little. Still needs oxygen. Current Visit: Yes Qualifiers: Respiratory failure complication: hypoxia and hypercapnia Qualified Code(s) : J96.21 - Acute and chronic respiratory failure with hypoxia; J96.22 - Acute and chronic respiratory failure with hypercapnia (2) Severe protein-calorie malnutrition Status: Acute Assessment and plan: We will need NG tube feedings 03/16/2017 continuing NG feeding 03/17/2017 continuing management per NG tube. 03/18/2017 progress diet orally. 03/19/2017 progressing with diet. Current Visit: Yes (3) COPD exacerbation Status: Acute Assessment and plan: Bronchodilator steroids and empiric antibiotics. Since she has severe COPD would go with Levaquin plus cefepime. 03/16/2017 continuing intravenous corticosteroids and antibiotics. Broad- spectrum due to her COPD. Continuing bronchodilators. 03/17/2017 no active bronchospasm. Continue current medications. 03/18/2017 bronchospasm improving. Reduce steroids. We have also added Daliresp for long-term treatment. Watch for nausea. 03/19/2017 reduce steroids today. Probably needs another day or 2 of IV medications. Current Visit: No (4) Hypotension Status: Acute Assessment and plan: Presently hypotensive. Has a high BUN to creatinine ratio although her creatinine is normal. Does not appear to be wet. Will give her a bolus of saline. Will try to get off propofol and use Precedex. 03/16/2017 systolic blood pressure 130. 03/17/2017 blood pressure well controlled. 03/18/2017 systolic blood pressure in 140s now. 03/19/2017 systolic blood pressure about 115. This is good. Current Visit: No
[2017-03-19] MEDS ORDERED: ONDANSETRON 4 MG/2 ML VIAL ONE (14:49)
--- NOTE | 2017-03-19 15:08 | Hospitalist Progress Note ---
Assessment and Plan (1) COPD exacerbation Status: Acute Assessment and plan: Dr Gary is following. Follow his recommendations on steroids and bronchodilators dose. Current Visit: No (2) Acute and chronic respiratory failure ([id number]) Status: Acute Assessment and plan: much improved Current Visit: Yes Qualifiers: Respiratory failure complication: hypoxia and hypercapnia Qualified Code(s) : J96.21 - Acute and chronic respiratory failure with hypoxia; J96.22 - Acute and chronic respiratory failure with hypercapnia (3) Severe protein-calorie malnutrition Status: Acute Assessment and plan: will get Dietitian to see Current Visit: Yes Hospitalist: Subjective Interval history: Patient seen. She feels better.Dr gary is following and is currently reducing her meds. Exam - Constitutional Vitals: Period Temp Pulse Resp BP Sys/Rodriguez Pulse Ox Last 24 Hr 97.2 F-98.1 F 77-110 18-24 108-139/65-84 90-100 General appearance: no acute distress - Head Head exam: Present: normal inspection - Neck Neck exam: Present: normal inspection - Respiratory Respiratory exam: Present: clear to auscultation bilaterally - Cardiovascular Cardiovascular exam: Present: regular rate and rhythm - GI/Abdominal GI/Abdominal exam: Present: normal bowel sounds - Extremities Exam Extremities exam: Present: normal inspection Results - Labs CBC & BMP: 03/19/17 04:53 03/19/17 04:53 Lab Results: I have reviewed the past 24 hour labs
[2017-03-19] MEDS: ONDANSETRON 4 MG/2 ML VIAL IV PRN ×2 (15:24→18:18)
[2017-03-19] MEDS: ALPRAZolam 0.5 MG TABLET PO PRN (22:07)
[2017-03-20] MEDS: IPRATROPIUM 500 MCG/2.5 ML NEB RESP TX SCH ×5 (00:39→23:57)
[2017-03-20] MEDS: LEVOFLOXACIN INJ 750 MG in PREMIX 1 EACH IV SCH (02:06)
[2017-03-20] MEDS: oxyCODONE/ACETAMINOPHEN 5-325 MG TABLET PO PRN ×3 (04:38→20:10)
[2017-03-20 06:58] LABS: Basophils % 0.1 % (0.0-0.8); Hematocrit 26.7 VOL% (35.7-47.0); Hemoglobin 8.5 GM/DL (12.0-16.0); Immature Granulocytes % 2.5 %; Immature Granulocytes Absolute 0.35 #; Lymphocytes # 0.9 10*3/uL (1.4-4.0); Lymphocytes % 6.6 % (21.3-54.2); Mean Corpuscular HGB Conc 31.8 GM/DL (32-36); Mean Corpuscular Hemoglobin 29 PG (27-34); Mean Corpuscular Volume 91.1 FL (87-102); Mean Platelet Volume 8.5 FL (9.6-12.0); Monocytes # 0.3 10*3/uL (0.11-0.8); Monocytes % 2.4 % (1.7-12.7); Neutrophils # 12.4 10*3/uL (1.4-7.4); Neutrophils % 88.4 % (38.7-73.9); Platelet Count 327 T/CUMM (130-400); Red Blood Count 2.93 MC/CUMM (3.8-5.5); Red Cell Distribution Width 18.3 % (9.3-17.3)
--- NOTE | 2017-03-20 08:53 | Pulmonology Progress Note ---
Pulmonary - PN: Subj Interval history: This 56-year-old white female has severe COPD. She is on home oxygen. An acute exacerbation over week that got worse. Was intubated and admitted yesterday. This morning she is much more alert. ABGs much improved. We will start CPAP and see if we can get her extubated. 03/17/2017 patient did well with CPAP yesterday. PCO2 is now down to normal. Will try to get her extubated this morning 03/18/2017 patient was extubated yesterday without difficulty. She is taking clear liquids for supper. She has some mild nausea this morning otherwise feeling better. She has grown Klebsiella and Pseudomonas from bronchial washings. She is well covered with cefepime and Levaquin. She could go to the floor today. Theophylline level is low. Stopping Aminophyllin. Continuing Daliresp. Need to watch that because it can cause some nausea. 03/19/2017 patient now on 5 E. She is coughing a good bit and short of breath with effort but is better. She is alert and I think we can start reducing her medications. Probably still needs IV meds another day or 2. 03/20/2017 patient is feeling a little better. Still having a good bit of coughing. I do think she needs IV medication for at least another 1-2 days from now Exam (Progress Note) - Constitutional Vitals: Period Temp Pulse Resp BP Sys/Rodriguez Pulse Ox Last 24 Hr 97.5 F-98.5 F 79-119 18-21 110-150/61-79 93-99 Exam: Patient's alert and responsive. Seems oriented. Wearing nasal oxygen. Vital signs are normal. Pupils react to light. Neck is supple. Chest reveals prolonged expiratory phase but I do not hear any wheezing today. There are a few scattered rhonchi. Heart normal rate rhythm no murmurs. Abdomen soft nontender no masses. Bowel sounds present. Extremities no clubbing cyanosis edema. Results - Labs CBC & BMP: 03/20/17 05:54 03/19/17 04:53 Lab Results: I have reviewed the past 24 hour labs Assessment and Plan (1) Acute and chronic respiratory failure ([id number]) Status: Acute Assessment and plan: She has been on oxygen. Her PCO2 runs around 60 when she is at her baseline. It was up to 80. She may be difficult to wean. 03/16/2017 ABGs improved. PCO2 down to 44. Needs a little Diamox. Reduce FiO2. Start weaning today. May be able to get her extubated today but probably will take another day. 03/17/2017 PCO2 down to normal. Should be able to extubate today. 03/18/2017 patient has done well postextubation. Continuing low flow oxygen. 03/19/2017 Will reduce Solu-Medrol a little. Still needs oxygen. 03/20/2017 patient is off the ventilator. Still requiring oxygen. She had both hypercarbic and hypoxemic acute on chronic respiratory failure. They are improved Current Visit: Yes Qualifiers: Respiratory failure complication: hypoxia and hypercapnia Qualified Code(s) : J96.21 - Acute and chronic respiratory failure with hypoxia; J96.22 - Acute and chronic respiratory failure with hypercapnia (2) Severe protein-calorie malnutrition Status: Acute Assessment and plan: We will need NG tube feedings 03/16/2017 continuing NG feeding 03/17/2017 continuing management per NG tube. 03/18/2017 progress diet orally. 03/19/2017 progressing with diet. 03/20/2017 patient eating a little better. Current Visit: Yes (3) COPD exacerbation Status: Acute Assessment and plan: Bronchodilator steroids and empiric antibiotics. Since she has severe COPD would go with Levaquin plus cefepime. 03/16/2017 continuing intravenous corticosteroids and antibiotics. Broad- spectrum due to her COPD. Continuing bronchodilators. 03/17/2017 no active bronchospasm. Continue current medications. 03/18/2017 bronchospasm improving. Reduce steroids. We have also added Daliresp for long-term treatment. Watch for nausea. 03/19/2017 reduce steroids today. Probably needs another day or 2 of IV medications. 03/20/2017 still having exacerbation. Keep on IV steroids for now as well as IV antibiotics. Current Visit: No (4) Hypotension Status: Resolved Assessment and plan: Presently hypotensive. Has a high BUN to creatinine ratio although her creatinine is normal. Does not appear to be wet. Will give her a bolus of saline. Will try to get off propofol and use Precedex. 03/16/2017 systolic blood pressure 130. 03/17/2017 blood pressure well controlled. 03/18/2017 systolic blood pressure in 140s now. 03/19/2017 systolic blood pressure about 115. This is good. 03/20/2017 hypotension has resolved. Current Visit: No
[2017-03-20] MEDS: ROFLUMILAST 500 MCG TABLET PO SCH (09:05)
[2017-03-20] MEDS: CITALOPRAM 40 MG TABLET PO SCH (09:05)
[2017-03-20] MEDS: LANSOPRAZOLE ODT 30 MG TABLET PER TUBE SCH (09:05)
[2017-03-20] MEDS: GABAPENTIN 300 MG CAPSULE PO SCH ×3 (09:05→20:09)
[2017-03-20] MEDS: methylPREDNISolone SOD SUC 40 MG/1 ML VIAL IV SCH ×2 (09:06→20:09)
[2017-03-20] MEDS: DESITIN 4OZ/NYSTATIN 15 GRAM MIXTURE PASTE TOP SCH ×2 (09:06→20:11)
[2017-03-20] MEDS: ENOXAPARIN 40 MG/0.4 ML SYRINGE SUBCUT SCH (09:06)
[2017-03-20] MEDS: CEFEPIME 1,000 MG in SODIUM CHLORIDE 0.9% 100 ML IV SCH ×3 (09:45→21:47)
[2017-03-20] MEDS: ALPRAZolam 0.5 MG TABLET PO PRN ×2 (10:55→22:52)
--- NOTE | 2017-03-20 11:11 | Hospitalist Progress Note ---
Assessment and Plan (1) COPD exacerbation Status: Acute Assessment and plan: Dr Gary is following.He suggests IV medication for at least another 1-2 days from now. Follow his recommendations on steroids and bronchodilators dose. Current Visit: No (2) Acute and chronic respiratory failure (cpydd-sh-cntlrap) Status: Acute Assessment and plan: much improved Current Visit: Yes Qualifiers: Respiratory failure complication: hypoxia and hypercapnia Qualified Code(s) : J96.21 - Acute and chronic respiratory failure with hypoxia; J96.22 - Acute and chronic respiratory failure with hypercapnia (3) Severe protein-calorie malnutrition Status: Acute Assessment and plan: Patient is eating better, follow Dietitian's recommendations. Current Visit: Yes (4) Anemia Status: Acute Assessment and plan: will get Iron studies, and follow cbc. Stool for occult blood. Current Visit: Yes Hospitalist: Subjective Interval history: Patient feels about the same. No events overnight. Exam - Constitutional Vitals: Period Temp Pulse Resp BP Sys/Rodriguez Pulse Ox Last 24 Hr 97.5 F-98.5 F 79-119 18-21 110-150/61-79 93-99 General appearance: no acute distress - Head Head exam: Present: normal inspection - Respiratory Respiratory exam: Present: clear to auscultation bilaterally - Cardiovascular Cardiovascular exam: Present: regular rate and rhythm - GI/Abdominal GI/Abdominal exam: Present: normal bowel sounds - Extremities Exam Extremities exam: Present: normal inspection Results - Labs CBC & BMP: 03/20/17 05:54 03/19/17 04:53 Lab Results: I have reviewed the past 24 hour labs
[2017-03-20 12:22] LABS: % Iron Saturation 37.5 % (18-50)
[2017-03-20] MEDS: ONDANSETRON 4 MG/2 ML VIAL IV PRN ×2 (13:20→20:11)
[2017-03-20 13:45] LABS: Mycoplasma pneumoniae Ab, IgG 1.03 index (<=0.90); Mycoplasma pneumoniae Ab, IgM 0.02 index (<=0.90)
--- NOTE | 2017-03-20 14:53 | EKG Report ---
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
[2017-03-20 15:47] LABS: Free T4 (Free Thyroxine) 0.58 NG/DL (0.76-1.46); Thyroid Stimulating Hormone 2.23 uIU/ml (0.358-3.74)
--- NOTE | 2017-03-20 17:19 | CT Report ---
Exam: CT chest PE study Date: 03/20/2017 4:23 PM Indication: Elevated d-dimer shortness of breath tachycardia Comparison: Routine chest 03/17/2017 Technical: Images were obtained from the thoracic inlet through the lung bases with 80 cc of Omnipaque 350 with axial and coronal imaging available for review. Dose reduction was performed with decreasing kv and mA and automated exposure. 3-D MIP images were obtained Total DLP 165.7 Findings: The thyroid gland trachea and esophagus are unremarkable.. The pulmonary outflow tract, left and right proximal pulmonary arteries, first-order, second-order and third order branches reveal no evidence of pulmonary thromboemboli. The lungs are demonstrated with some groundglass densities in the upper lung anteriorly bilaterally. Some dependent atelectatic changes also present in the basilar regions bilaterally. The mediastinum structures are intact. The bony structures reveal rods and intrapedicular screws in the lower thoracic and lumbar spine. Stomach is distended with air-fluid and debris with previous cholecystectomy clips present. Vascular plaque in the splenic artery with previous cholecystectomy. Splenic granuloma changes are present. Impression: 1. No evidence of pulmonary thromboemboli 2. Mild groundglass densities in the lung apices anteriorly bilaterally 3. Previous intrapedicular screws stabilizing bars and rods in the thoracolumbar spine. Prior vertebroplasty also noted. 4. Previous cholecystectomy PROCEDURE INTERPRETED AT [facility] DEPARTMENT OF RADIOLOGY Final Report Signed by: Dr. Yusef Muñoz
[2017-03-21] MEDS: LEVOFLOXACIN INJ 750 MG in PREMIX 1 EACH IV SCH (01:43)
[2017-03-21] MEDS: oxyCODONE/ACETAMINOPHEN 5-325 MG TABLET PO PRN ×4 (03:51→22:03)
[2017-03-21 06:06] LABS: Hematocrit 20.5 VOL% (35.7-47.0); Hemoglobin 6.7 GM/DL (12.0-16.0); Immature Granulocytes % 4.1 %; Immature Granulocytes Absolute 0.82 #; Lymphocytes # 1.6 10*3/uL (1.4-4.0); Lymphocytes % 7.8 % (21.3-54.2); Mean Corpuscular HGB Conc 32.7 GM/DL (32-36); Mean Corpuscular Hemoglobin 30 PG (27-34); Mean Corpuscular Volume 90.7 FL (87-102); Mean Platelet Volume 8.8 FL (9.6-12.0); Monocytes # 0.5 10*3/uL (0.11-0.8); Monocytes % 2.5 % (1.7-12.7); NRBC # 0.02 10*3/uL; Neutrophils # 17.3 10*3/uL (1.4-7.4); Neutrophils % 85.6 % (38.7-73.9); Platelet Count 363 T/CUMM (130-400); Red Blood Count 2.26 MC/CUMM (3.8-5.5); Red Cell Distribution Width 18.6 % (9.3-17.3); White Blood Count 20.2 T/CUMM (4-12)
[2017-03-21 06:27] LABS: Lymphocytes 6 % (20-55); Platelet Estimate Normal; Segmented Neutrophils 92 % (50-85); Total Cells Counted 100
[2017-03-21 06:28] LABS: Hypochromasia 2+
[2017-03-21 06:31] LABS: Calcium 8.3 MG/DL (8.5-10.1); Osmolality,Calculated 285.5 MOS/KG (273-304); Potassium 4.4 MMOL/L (3.5-5.1)
[2017-03-21] MEDS: IPRATROPIUM 500 MCG/2.5 ML NEB RESP TX SCH ×3 (07:24→20:20)
[2017-03-21 08:21] LABS: Hemoglobin 6.7 GM/DL (12.0-16.0)
[2017-03-21 08:54] LABS: Procalcitonin, S 0.14 ng/mL (<=0.15)
--- NOTE | 2017-03-21 09:54 | Pulmonology Progress Note ---
Pulmonary - PN: Subj Interval history: This 56-year-old white female has severe COPD. She is on home oxygen. An acute exacerbation over week that got worse. Was intubated and admitted yesterday. This morning she is much more alert. ABGs much improved. We will start CPAP and see if we can get her extubated. 03/17/2017 patient did well with CPAP yesterday. PCO2 is now down to normal. Will try to get her extubated this morning 03/18/2017 patient was extubated yesterday without difficulty. She is taking clear liquids for supper. She has some mild nausea this morning otherwise feeling better. She has grown Klebsiella and Pseudomonas from bronchial washings. She is well covered with cefepime and Levaquin. She could go to the floor today. Theophylline level is low. Stopping Aminophyllin. Continuing Daliresp. Need to watch that because it can cause some nausea. 03/19/2017 patient now on 5 E. She is coughing a good bit and short of breath with effort but is better. She is alert and I think we can start reducing her medications. Probably still needs IV meds another day or 2. 03/20/2017 patient is feeling a little better. Still having a good bit of coughing. I do think she needs IV medication for at least another 1-2 days from now 03/21/2017 patient feeling much better but her hematocrit has dropped to 20. She has a history of anemia requiring blood transfusions following surgery in the past. She does not know the cause of the anemia. I have ordered anemia profile. She is to get blood today. She may need a GI endoscopy set up if stools are positive. Her COPD is improved. I have decreased her steroids. Probably could change to oral medications in another day or so. Exam (Progress Note) - Constitutional Vitals: Period Temp Pulse Resp BP Sys/Rodriguez Pulse Ox Last 24 Hr 97.3 F-98.7 F 98-121 18-20 93-114/62-73 92-99 Exam: Patient's alert and responsive. She is pale. Seems oriented. Wearing nasal oxygen. Vital signs are normal. Pupils react to light. Neck is supple. Chest reveals prolonged expiratory phase but I do not hear any wheezing today. There are a few scattered rhonchi. Heart normal rate rhythm no murmurs. Abdomen soft nontender no masses. Bowel sounds present. Extremities no clubbing cyanosis edema. Results - Labs CBC & BMP: 03/21/17 08:12 03/21/17 04:25 Lab Results: I have reviewed the past 24 hour labs Assessment and Plan (1) Acute and chronic respiratory failure ([id number]) Status: Acute Assessment and plan: She has been on oxygen. Her PCO2 runs around 60 when she is at her baseline. It was up to 80. She may be difficult to wean. 03/16/2017 ABGs improved. PCO2 down to 44. Needs a little Diamox. Reduce FiO2. Start weaning today. May be able to get her extubated today but probably will take another day. 03/17/2017 PCO2 down to normal. Should be able to extubate today. 03/18/2017 patient has done well postextubation. Continuing low flow oxygen. 03/19/2017 Will reduce Solu-Medrol a little. Still needs oxygen. 03/20/2017 patient is off the ventilator. Still requiring oxygen. She had both hypercarbic and hypoxemic acute on chronic respiratory failure. They are improved 03/21/2017 patient doing well off the ventilator. She is on nasal oxygen. The severe anemia is aggravating things. She has oxygen at home but has asked for a different set up. Social work is looking into that. If she is discharged this weekend I could see her in the clinic in about 2 weeks for follow-up. Current Visit: Yes Qualifiers: Respiratory failure complication: hypoxia and hypercapnia Qualified Code(s) : J96.21 - Acute and chronic respiratory failure with hypoxia; J96.22 - Acute and chronic respiratory failure with hypercapnia (2) Severe protein-calorie malnutrition Status: Acute Assessment and plan: We will need NG tube feedings 03/16/2017 continuing NG feeding 03/17/2017 continuing management per NG tube. 03/18/2017 progress diet orally. 03/19/2017 progressing with diet. 03/20/2017 patient eating a little better. 03/21/2017 appetite is better. Current Visit: Yes (3) COPD exacerbation Status: Acute Assessment and plan: Bronchodilator steroids and empiric antibiotics. Since she has severe COPD would go with Levaquin plus cefepime. 03/16/2017 continuing intravenous corticosteroids and antibiotics. Broad- spectrum due to her COPD. Continuing bronchodilators. 03/17/2017 no active bronchospasm. Continue current medications. 03/18/2017 bronchospasm improving. Reduce steroids. We have also added Daliresp for long-term treatment. Watch for nausea. 03/19/2017 reduce steroids today. Probably needs another day or 2 of IV medications. 03/20/2017 still having exacerbation. Keep on IV steroids for now as well as IV antibiotics. 03/21/2017 have reduce steroids a little. Could go to oral medications tomorrow. Current Visit: No
[2017-03-21] MEDS: GABAPENTIN 300 MG CAPSULE PO SCH ×3 (10:01→22:03)
[2017-03-21] MEDS: ROFLUMILAST 500 MCG TABLET PO SCH (10:01)
[2017-03-21] MEDS: methylPREDNISolone SOD SUC 40 MG/1 ML VIAL IV SCH ×2 (10:01→10:30)
[2017-03-21] MEDS: LANSOPRAZOLE ODT 30 MG TABLET PER TUBE SCH (10:01)
[2017-03-21] MEDS: CITALOPRAM 40 MG TABLET PO SCH (10:01)
[2017-03-21] MEDS: CEFEPIME 1,000 MG in SODIUM CHLORIDE 0.9% 100 ML IV SCH ×2 (10:02→22:06)
[2017-03-21] MEDS ORDERED: SODIUM CHLORIDE 0.9% 250 ML IV PRN (10:08)
[2017-03-21 10:11] LABS: Basophils % 0.1 % (0.0-0.8); Hematocrit 22.1 VOL% (35.7-47.0); Hemoglobin 7.2 GM/DL (12.0-16.0); Immature Granulocytes % 3.3 %; Immature Granulocytes Absolute 0.73 #; Lymphocytes # 2.8 10*3/uL (1.4-4.0); Lymphocytes % 12.6 % (21.3-54.2); Mean Corpuscular HGB Conc 32.6 GM/DL (32-36); Mean Corpuscular Hemoglobin 30 PG (27-34); Mean Corpuscular Volume 92.9 FL (87-102); Mean Platelet Volume 8.5 FL (9.6-12.0); Monocytes # 0.6 10*3/uL (0.11-0.8); Monocytes % 2.8 % (1.7-12.7); NRBC # 0.03 10*3/uL; Neutrophils # 17.8 10*3/uL (1.4-7.4); Neutrophils % 81.2 % (38.7-73.9); Platelet Count 358 T/CUMM (130-400); Red Blood Count 2.38 MC/CUMM (3.8-5.5)
[2017-03-21 10:31] LABS: Band Neutrophils 1 % (0-10); Hypochromasia 1+; Lymphocytes 10 % (20-55); Myelocytes 1 %; Platelet Estimate Adequate; Segmented Neutrophils 86 % (50-85); Total Cells Counted 100
[2017-03-21 10:57] LABS: Folate 21.3 NG/ML (5.4-24.0); Vitamin B12 635 PG/ML (211-911)
[2017-03-21 11:49] LABS: Sedimentation Rate-Westergren 28 MM/HR (0-30)
--- NOTE | 2017-03-21 13:18 | Hospitalist Progress Note ---
Assessment and Plan (1) COPD exacerbation Status: Acute Assessment and plan: Dr Gary is following.He suggests IV medication for at least another 1-2 days from now. Follow his recommendations on steroids and bronchodilators dose. Current Visit: No (2) Acute and chronic respiratory failure (vfgre-[id number]) Status: Acute Assessment and plan: much improved Current Visit: Yes Qualifiers: Respiratory failure complication: hypoxia and hypercapnia Qualified Code(s) : J96.21 - Acute and chronic respiratory failure with hypoxia; J96.22 - Acute and chronic respiratory failure with hypercapnia (3) Severe protein-calorie malnutrition Status: Acute Assessment and plan: Patient is eating better, follow Dietitian's recommendations. Current Visit: Yes (4) Anemia Status: Acute Assessment and plan: Iron studies- noted follow stool for occult blood. No clinical evidence of bleed. Will transfuse with 2units of packed cells. Post transfusion cbc.Will hold Lovenox. Current Visit: Yes Hospitalist: Subjective Interval history: Patient seen this am, her H/H dropped to 6.7/20.5 this am. There is no clinical evidence of bleed. Exam - Constitutional Vitals: Period Temp Pulse Resp BP Sys/Rodriguez Pulse Ox Last 24 Hr 97.3 F-98.7 F 76-121 18-20 93-102/62-67 91-99 General appearance: mild distress - Head Head exam: Present: normal inspection - Respiratory Respiratory exam: Present: clear to auscultation bilaterally - Neurological Exam Neurological exam: Present: alert Results - Labs CBC & BMP: 03/21/17 10:00 03/21/17 04:25 Lab Results: I have reviewed the past 24 hour labs
[2017-03-21] MEDS: DESITIN 4OZ/NYSTATIN 15 GRAM MIXTURE PASTE TOP SCH ×2 (15:35→22:00)
[2017-03-21] MEDS: ENOXAPARIN 40 MG/0.4 ML SYRINGE SUBCUT SCH (15:35)
[2017-03-21] MEDS: ONDANSETRON 4 MG/2 ML VIAL IV PRN (20:39)
[2017-03-21 23:18] LABS: Hematocrit 26.1 VOL% (35.7-47.0); Hemoglobin 8.7 GM/DL (12.0-16.0)
[2017-03-22] MEDS: LEVOFLOXACIN INJ 750 MG in PREMIX 1 EACH IV SCH (02:22)
[2017-03-22] MEDS: oxyCODONE/ACETAMINOPHEN 5-325 MG TABLET PO PRN ×3 (05:50→19:51)
[2017-03-22] MEDS: IPRATROPIUM 500 MCG/2.5 ML NEB RESP TX SCH ×4 (06:55→20:25)
--- NOTE | 2017-03-22 09:35 | Gastrointestinal Consult Note ---
Assessment and Plan (1) Gastrointestinal hemorrhage with melena Status: Acute Assessment and plan: This patient has a combination of severe epigastric pain and dark stools that have been on and off for several weeks and also has a history of gastric ulcer some 20 years ago. She certainly could have recurrence of this which has been worsened during this admission by exposure to Lovenox. There is certainly guaiac positive stool and physical examination and I strongly suspect there may be gastric ulcers, erosions but cannot rule out gastric cancer or AVMs in this setting. We will perform upper endoscopy and given the fact the patient has not had colorectal cancer screening in many years will likely add on a colonoscopy seeing is her medical rate is dropped down to 20% during this admission. She could potentially be discharged on Friday if no cancer no active bleeding or discovered. Seeing as she is eating at this point I am going to advance her to oral Protonix twice daily to suppress the acidity in her stomach. This should help out with pain and potential ulcer disease we will check for Helicobacter pylori during upper endoscopy. She does not know if she has a history of polyps. The patient understands the risks of the procedure include but are not limited to: Bleeding, infection, perforation, cardiac and pulmonary compromise. Current Visit: Yes (2) Acute blood loss anemia Status: Acute Assessment and plan: Hematocrit is improved from 20.0 up to 26% at this time posttransfusion, we will continue to observe this as we leave her on her pantoprazole twice daily and have her undergo bowel prep tomorrow. She will need to be switched over to a clear liquid diet tomorrow in order to facilitate the colon prep. I will discontinue the Lovenox instead of holding it for the present time. Current Visit: Yes (3) Generalized abdominal pain Status: Acute Assessment and plan: Most of the pains for this patient are in the epigastric region which would tend to point towards peptic ulcer disease or erosive disease. Some of the pain is in the bilateral lower quadrants and I suspect this may be due to constipation induced irritation. Physical examination she does have hard stools , we cannot rule out a lower GI bleeding source and so we will add a colonoscopy as previously mentioned to the upper endoscopy also to be done on 03/24/17. Current Visit: Yes (4) Severe protein-calorie malnutrition Status: Acute Assessment and plan: Not sure that I would call her malnutrition severe she does have an albumin of 2.3 and she does have poor p.o. intake. We will check and make sure she does not have colon cancer and I suspect that is her gastritis is treated she will improve as far as her appetite. She needs to steer clear of NSAIDs for the future if at all possible. Again Protonix 40 mg twice daily has been initiated to help out with the underlying inflammation in the stomach. Steroids have to be continued for the present time because of her underlying COPD. Current Visit: Yes History of Present Illness Chief complaint: Dark stools and anemia with hematocrit down to 35.2% -->20.0% History of present illness: Ms. Morris is a 57 year old female who has a history of previous ulcers in her stomach some 20 years ago and previous colonoscopy/EGD perhaps done by Dr. Ana eckert at [facility] no more recently than 8 years ago, now presents with epigastric tenderness dark stools on and off for several weeks to months and a decreased hematocrit on admission to 35% which dropped to 20% during hospitalization on Lovenox. She states that last Friday 6 days ago, she had quite a bit of epigastric tenderness as well as right upper quadrant left upper quadrant tenderness to a lesser degree. She has some reflux but no atypical chest pain. These are still present. Patient was intubated and was treated with lansoprazole via NG tube that is now out. She has been transfused and her hematocrit is improved up to 26% at this time. Her Lovenox is being held. She does admit to occasional use of BC powders and states that she did use these quite heavily in the past. Tries to stick with occasional BCs as well as Tylenol these days. She has been recently treated with high-dose steroids. She does have some mild to moderate malnutrition, he has some mild anorexia as well. She would like to get both EGD and colonoscopy done at the same time as she requires these. We will likely get these taken care of on Friday morning. She has not had any bright red blood per rectum and there is no family history of colorectal cancer or polyps. Patient tends to be constipated at her baseline , with bowel movements 3-4 times per week. Home Medications Medication Instructions Recorded Confirmed Type ALPRAZolam [Xanax] 0.5 mg PO TID 03/14/17 03/14/17 History Albuterol Sulfate [Proair HFA] 2 puff INH Q4H PRN 03/14/17 03/14/17 History Albuterol/Ipratropium Neb [Duoneb] 3 ml RESP TX RT Q6H PRN 03/14/17 03/14/17 History Budesonide/Formoterol 160-4.5 2 puff INH DAILY 03/14/17 03/14/17 History [Symbicort 160-4.5] Citalopram [CeleXA] 40 mg PO DAILY 03/14/17 03/14/17 History Cyproheptadine HCl 4 mg PO TID 03/14/17 03/14/17 History Gabapentin 600 mg PO TID 03/14/17 03/14/17 History Oxycodone HCl/Acetaminophen 1 each PO Q6H 03/14/17 03/14/17 History [Percocet 10-325 mg Tablet] predniSONE TAB [PredniSONE] 10 mg PO BID 03/14/17 03/14/17 History Allergies Allergy/AdvReac Type Severity Reaction Status Date / Time Amoxicillin Allergy Severe BLISTER Verified 07/17/15 05:29 Medical,Surgical,& Family Hx - Medical History Cardio: History of: Hypertension Respiratory: History of: Asthma, COPD (on home O2), Pneumonia Musculoskeletal: History of: Musculoskeletal Problems Hematology: History of: Anemia - Surgical History Cardiac Surgeries: Sugical HX of: Cardiac Catheterization Abdominal Surgeries: Surgical HX of: Abdominal Surgery, Appendectomy, Cholecystectomy Reproductive Surgeries: Surgical HX of;: Section, Tubal Ligation Orthopedic Surgeries: Surgical HX of;: Orthopedic Surgery (ORIF-right hip, ACL- both knees, arm and elbow, back surgery x3) - Family History Family History: Reports;: Family Hypertension - Social History Smoking Status: Former smoker Frequency of Alcohol Use: None Type of Drug Use: None Review of systems: Constitutional: Denies fever, chills, and vomiting, the patient does have some mild nausea and anorexia. Eyes: Denies dry eyes, and scleral icterus HENT: She does have occasional headaches Cardiovascular: Denies acute chest pain and claudication Respiratory: Patient admits to shortness of breath, wheezing, and difficulty breathing, as well as cough Gastrointestinal: As noted in the HPI Genitourinary: Denies dysuria and hematuria Neurologic: Denies vision loss, and loss of sensation Musculoskeletal: She does have some joint swelling, joint stiffness, and muscular weakness Psychiatric: Denies depression and luciano symptoms Heme-Lymph: She has had some easy bruising, but no lymph node enlargement or tenderness, night sweats, excessive bleeding Allergies-immunologic: Denies pruritus and rhinorrhea Exam - Constitutional Vitals: Period Temp Pulse Resp BP Sys/Rodriguez Pulse Ox Last 24 Hr 97.2 F-98.8 F 50-122 16-21 92-114/53-76 89-100 General appearance: no acute distress Exam: Constitutional: Well-developed, well-nourished, alert, and in no acute distress Head and face: Head: Normocephalic atraumatic Eyes: Conjunctiva without injection, no gross scleral icterus, pupils equal and round bilaterally Ears: Intact to conversation in both ears Nose: External appearance is normal, nares patent Mouth: Oral mucous membranes moist without erythema dentition noted to be without erosion Neck: Normal appearance, no masses or tenderness, trachea midline Thyroid: Gland midline and appropriate size for age Respiratory: Normal respiratory effort, there are a few rhonchi noted centrally, patient has tenacious sputum when coughing hard but otherwise lung sánchez are clear to auscultation without rales Cardiovascular: Regular rate and rhythm, normal S1, S2, the exam is without rubs, murmurs or gallops. Gastrointestinal: Epigastric greater than right upper quadrant greater than left upper quadrant area is tender to deep palpation, normal active bowel sounds, tone normal without rigidity or guarding, no masses present, no hepatomegaly, no spleen tip felt. Rectal exam showed good tone no external fissures or fistulas, small internal and external hemorrhoids are present, stool is dark brown and grossly guaiac positive. Lymphatic: Neck without adenopathy, axilla without lymphadenopathy present Musculoskeletal: Right and left lower extremities without evidence of edema --these are tender Skin and subcutaneous tissue: No rashes or ulcerations noted, normal skin turgor, digits and nails without clubbing/cyanosis/deformities. Ecchymoses are noted on the hands bilaterally and a few of these noted on the legs in the pretibial regions Neurologic: The patient is grossly oriented to person place and time, cranial nerves show tongue movements are normal with normal tongue extrusion midline, light touch sensation is intact. Psychiatric: No hallucinations or delusions are present, does not appear depressed - Respiratory Respiratory exam: Present: rhonchi (Mostly centrally with coughing, otherwise good air exchange), wheezes (Very mild end expiratory) - Cardiovascular Cardiovascular exam: Present: regular rate and rhythm - GI/Abdominal GI/Abdominal exam: Present: normal bowel sounds, tenderness (Epigastric but also right upper quadrant greater than left upper quadrant), soft, other ( Rectal exam with good tone no external fissures or fistulas, stool is dark brown and grossly guaiac positive). Absent: distended, guarding, rebound - Extremities Exam Extremities exam: Present: normal inspection - Neurological Exam Neurological exam: Present: alert, oriented X3 Results - Labs CBC & BMP: 03/21/17 23:06 03/21/17 04:25 Specialty Discharge - Follow Up or Referrals Follow up with: Joel Gary MD [Physician] - (2 week appointment bmp,cbc,chest x ray)
[2017-03-22] MEDS: methylPREDNISolone SOD SUC 40 MG/1 ML VIAL IV SCH ×2 (09:52→11:04)
[2017-03-22] MEDS: CITALOPRAM 40 MG TABLET PO SCH (09:53)
[2017-03-22] MEDS: DESITIN 4OZ/NYSTATIN 15 GRAM MIXTURE PASTE TOP SCH ×2 (09:53→22:12)
[2017-03-22] MEDS: CEFEPIME 1,000 MG in SODIUM CHLORIDE 0.9% 100 ML IV SCH ×2 (09:53→21:08)
[2017-03-22] MEDS: GABAPENTIN 300 MG CAPSULE PO SCH ×3 (09:53→21:06)
[2017-03-22] MEDS: ROFLUMILAST 500 MCG TABLET PO SCH (09:53)
[2017-03-22] MEDS: ALPRAZolam 0.5 MG TABLET PO PRN ×2 (09:57→22:11)
--- NOTE | 2017-03-22 10:20 | Hospitalist Progress Note ---
Assessment and Plan (1) COPD exacerbation Status: Acute Assessment and plan: Dr Gary is following.. Follow his recommendations on steroids and bronchodilators dose. Current Visit: No (2) Acute and chronic respiratory failure ([id number]) Status: Acute Assessment and plan: much improved Current Visit: Yes Qualifiers: Respiratory failure complication: hypoxia and hypercapnia Qualified Code(s) : J96.21 - Acute and chronic respiratory failure with hypoxia; J96.22 - Acute and chronic respiratory failure with hypercapnia (3) Severe protein-calorie malnutrition Status: Acute Assessment and plan: Patient is eating better, follow Dietitian's recommendations. Current Visit: Yes (4) Anemia Status: Acute Assessment and plan: Acute blood loss anemia with 4+ occult stool blood. S/p transusion with 2units of packed cells. Iron studies- noted Plan GI has been consulted- they are prepping her for a possible Colonoscopy and EGD on Friday monitor H/H continue to dc Lovenox Current Visit: Yes Hospitalist: Subjective Interval history: Patient seen and she had no new complaints.. Her H/H have improved after transfusion of 2units of blood. Her stool for occult blood was 4+. GI has been consulted. Exam - Constitutional Vitals: Period Temp Pulse Resp BP Sys/Rodriguez Pulse Ox Last 24 Hr 97.2 F-98.8 F 50-122 16-21 92-114/53-76 89-100 General appearance: no acute distress - Head Head exam: Present: normal inspection - Respiratory Respiratory exam: Present: clear to auscultation bilaterally - Cardiovascular Cardiovascular exam: Present: regular rate and rhythm - GI/Abdominal GI/Abdominal exam: Present: hypoactive bowel sounds - Extremities Exam Extremities exam: Present: normal inspection Results - Labs CBC & BMP: 03/21/17 23:06 03/21/17 04:25 Lab Results: I have reviewed the past 24 hour labs Specialty Discharge - Follow Up or Referrals Follow up with: Joel Gary MD [Physician] - (2 week appointment bmp,cbc,chest x ray)
--- NOTE | 2017-03-22 10:53 | Pulmonology Progress Note ---
Pulmonary - PN: Subj Interval history: 56-year-old female with severe COPD admitted for acute exacerbation of COPD requiring mechanical ventilation. Patient was extubated 03/17 and has done well since. Today her respiratory status continues to improve and she has no complaints from a respiratory perspective. Overnight she has been found to have a declining hemoglobin with concern for a GI bleed. GI has been consulted and plans for EGD and colonoscopy on Friday. Patient has no other acute concerns or complaints at this time. Exam (Progress Note) - Constitutional Vitals: Period Temp Pulse Resp BP Sys/Rodriguez Pulse Ox Last 24 Hr 97.2 F-98.8 F 50-122 16-21 92-114/53-76 89-100 General appearance: normal weight - Head Head exam: Present: normal inspection - Eye Eye exam: Present: EOMI Pupils: Present: ALECIA - ENT ENT exam: Present: normal exam - Neck Neck exam: Present: normal inspection - Respiratory Respiratory exam: Present: clear to auscultation bilaterally. Absent: rales, rhonchi, wheezes - Cardiovascular Cardiovascular exam: Present: regular rate and rhythm - GI/Abdominal GI/Abdominal exam: Present: normal bowel sounds - Extremities Exam Extremities exam: Present: normal inspection - Neurological Exam Neurological exam: Present: alert, oriented X3 - Skin Skin exam: Present: normal color, warm, dry Results - Labs CBC & BMP: 03/21/17 23:06 03/21/17 04:25 Assessment and Plan (1) COPD exacerbation Status: Acute Assessment and plan: Patient continues to improve from severe COPD exacerbation requiring mechanical ventilation. Will reduce dose of steroids today and continue at 20 mg daily until Friday. Continue nebs and other COPD therapies. Continue antibiotics for Klebsiella and Pseudomonas. Current Visit: No (2) Acute blood loss anemia Status: Acute Assessment and plan: GI consulted and plans to do EGD and colonoscopy on Friday. Trend hemoglobin and will await results from endoscopy Current Visit: Yes Specialty Discharge - Follow Up or Referrals Follow up with: Joel Gary MD [Physician] - (2 week appointment bmp,cbc,chest x ray)
[2017-03-22] MEDS: LANSOPRAZOLE ODT 30 MG TABLET PER TUBE SCH (11:05)
[2017-03-22] MEDS: PANTOPRAZOLE 40 MG TABLET PO SCH (21:06)
[2017-03-23] MEDS: IPRATROPIUM 500 MCG/2.5 ML NEB RESP TX SCH ×4 (00:26→20:21)
[2017-03-23] MEDS: LEVOFLOXACIN INJ 750 MG in PREMIX 1 EACH IV SCH (02:32)
[2017-03-23] MEDS: oxyCODONE/ACETAMINOPHEN 5-325 MG TABLET PO PRN ×4 (02:36→20:08)
[2017-03-23 05:57] LABS: Basophils % 0.1 % (0.0-0.8); Eosinophils % 0.2 % (0.00-10.9); Hematocrit 30.1 VOL% (35.7-47.0); Hemoglobin 9.8 GM/DL (12.0-16.0); Immature Granulocytes % 6.9 %; Immature Granulocytes Absolute 0.79 #; Lymphocytes # 1.5 10*3/uL (1.4-4.0); Lymphocytes % 13.4 % (21.3-54.2); Mean Corpuscular HGB Conc 32.6 GM/DL (32-36); Mean Corpuscular Hemoglobin 31 PG (27-34); Mean Corpuscular Volume 94.4 FL (87-102); Mean Platelet Volume 8.3 FL (9.6-12.0); Monocytes # 0.6 10*3/uL (0.11-0.8); Monocytes % 4.8 % (1.7-12.7); NRBC # 0.07 10*3/uL; Neutrophils # 8.5 10*3/uL (1.4-7.4); Neutrophils % 74.6 % (38.7-73.9); Platelet Count 288 T/CUMM (130-400); Red Blood Count 3.19 MC/CUMM (3.8-5.5); Red Cell Distribution Width 17.2 % (9.3-17.3); White Blood Count 11.4 T/CUMM (4-12)
[2017-03-23 06:23] LABS: Band Neutrophils 1 % (0-10); Hypochromasia 1+; Lymphocytes 16 % (20-55); Metamyelocytes 1 %; Segmented Neutrophils 75 % (50-85); Total Cells Counted 100
[2017-03-23 06:24] LABS: Anisocytosis 1+; Macrocytosis 1+; Platelet Estimate Normal
[2017-03-23 06:30] LABS: Osmolality,Calculated 278.4 MOS/KG (273-304)
[2017-03-23] MEDS: PANTOPRAZOLE 40 MG TABLET PO SCH ×2 (08:18→20:08)
[2017-03-23] MEDS: CITALOPRAM 40 MG TABLET PO SCH (08:18)
[2017-03-23] MEDS: GABAPENTIN 300 MG CAPSULE PO SCH ×3 (08:18→20:08)
[2017-03-23] MEDS: methylPREDNISolone SOD SUC 40 MG/1 ML VIAL IV SCH ×2 (08:18→11:00)
[2017-03-23] MEDS: ROFLUMILAST 500 MCG TABLET PO SCH (08:18)
[2017-03-23] MEDS: CEFEPIME 1,000 MG in SODIUM CHLORIDE 0.9% 100 ML IV SCH ×3 (08:19→20:57)
[2017-03-23] MEDS: DESITIN 4OZ/NYSTATIN 15 GRAM MIXTURE PASTE TOP SCH ×2 (08:35→20:56)
[2017-03-23] MEDS: BISACODYL 5 MG TABLET PO SCH ×2 (08:35→17:29)
--- NOTE | 2017-03-23 10:10 | Gastrointestinal Progress Note ---
Assessment and Plan (1) Gastrointestinal hemorrhage with melena Status: Acute Assessment and plan: This patient has a combination of severe epigastric pain and dark stools that have been on and off for several weeks and also has a history of gastric ulcer some 20 years ago. She certainly could have recurrence of this which has been worsened during this admission by exposure to Lovenox. There is certainly guaiac positive stool and physical examination and I strongly suspect there may be gastric ulcers, erosions but cannot rule out gastric cancer or AVMs in this setting. We will perform upper endoscopy and given the fact the patient has not had colorectal cancer screening in many years will likely add on a colonoscopy seeing is her medical rate is dropped down to 20% during this admission. She could potentially be discharged on Friday if no cancer no active bleeding or discovered. Seeing as she is eating at this point I am going to advance her to oral Protonix twice daily to suppress the acidity in her stomach. This should help out with pain and potential ulcer disease we will check for Helicobacter pylori during upper endoscopy. She does not know if she has a history of polyps. The patient understands the risks of the procedure include but are not limited to: Bleeding, infection, perforation, cardiac and pulmonary compromise. 03/23/17--this patient may have a recurrence of her gastric ulcer, there may be gastritis or other cause for her anemia. Given the dark stools a suspect probably the former. She is due to undergo colonoscopy before she leaves at the same time, due to the extremely low hematocrit. It is many as 10% of cases with iron deficiency anemia there are 2 sources causing the problem. She may be able to be discharged after the upper and lower endoscopies tomorrow. Current Visit: Yes (2) Acute blood loss anemia Status: Acute Assessment and plan: Hematocrit is improved from 20.0 up to 26% at this time posttransfusion, we will continue to observe this as we leave her on her pantoprazole twice daily and have her undergo bowel prep tomorrow. She will need to be switched over to a clear liquid diet tomorrow in order to facilitate the colon prep. I will discontinue the Lovenox instead of holding it for the present time. 03/23/17--Patient's hematocrit is up from 26% to 30% now. We should be able to get some definitive answers as to cause with the endoscopy tomorrow. Current Visit: Yes (3) Generalized abdominal pain Status: Acute Assessment and plan: Most of the pains for this patient are in the epigastric region which would tend to point towards peptic ulcer disease or erosive disease. Some of the pain is in the bilateral lower quadrants and I suspect this may be due to constipation induced irritation. Physical examination she does have hard stools , we cannot rule out a lower GI bleeding source and so we will add a colonoscopy as previously mentioned to the upper endoscopy also to be done on 03/24/17. 03/23/17--The abdominal pain has resolved completely at this point. We will continue to observe. Current Visit: Yes (4) Severe protein-calorie malnutrition Status: Acute Assessment and plan: Not sure that I would call her malnutrition severe she does have an albumin of 2.3 and she does have poor p.o. intake. We will check and make sure she does not have colon cancer and I suspect that is her gastritis is treated she will improve as far as her appetite. She needs to steer clear of NSAIDs for the future if at all possible. Again Protonix 40 mg twice daily has been initiated to help out with the underlying inflammation in the stomach. Steroids have to be continued for the present time because of her underlying COPD. 03/23/17--This is another reason colonoscopy is being done to look for a cause for the patient's malnutrition. Upper endoscopy could certainly result in decreased appetite which could have a negative impact on her p.o. intake as well. EGD and colonoscopy tomorrow planned. Current Visit: Yes Gastroenterology - PN: Subj Interval history: Patient appears to be doing well with p.o. intake. Her hematocrit is back up to 30% posttransfusion, she is about to get her colonoscopy prep tonight and undergo colonoscopy and upper endoscopy tomorrow. She is not having any unusual abdominal pain. White blood cell count has dropped down from 22.0 to 11.4 at this time. Exam (Progress Note) - Constitutional Vitals: Period Temp Pulse Resp BP Sys/Rodriguez Pulse Ox Last 24 Hr 97.1 F-98.3 F 64-116 18-64 101-148/60-72 94-99 General appearance: no acute distress - Head Head exam: Present: normocephalic - Eye Eye exam: Present: EOMI Pupils: Present: ALECIA - Respiratory Respiratory exam: Present: clear to auscultation bilaterally - GI/Abdominal GI/Abdominal exam: Present: normal bowel sounds, soft. Absent: distended, guarding, tenderness, rebound - Extremities Exam Extremities exam: Absent: edema - Neurological Exam Neurological exam: Present: alert, oriented X3 - Psychiatric Psychiatric exam: Present: normal affect, normal mood - Skin Skin exam: Present: warm Results - Labs CBC & BMP: 03/23/17 05:34 03/23/17 05:34 Specialty Discharge - Follow Up or Referrals Follow up with: Joel Gary MD [Physician] - (2 week appointment bmp,cbc,chest x ray)
--- NOTE | 2017-03-23 10:21 | Hospitalist Progress Note ---
Assessment and Plan (1) COPD exacerbation Status: Acute Assessment and plan: Dr Gary is following.. Follow his recommendations on steroids and bronchodilators dose. Current Visit: No (2) Acute and chronic respiratory failure ([id number]) Status: Acute Assessment and plan: much improved Current Visit: Yes Qualifiers: Qualified Code(s): J96.21 - Acute and chronic respiratory failure with hypoxia; J96.22 - Acute and chronic respiratory failure with hypercapnia (3) Severe protein-calorie malnutrition Status: Acute Assessment and plan: Patient is eating better, follow Dietitian's recommendations. Current Visit: Yes (4) Anemia Status: Acute Assessment and plan: Acute blood loss anemia with 4+ occult stool blood. S/p transusion with 2units of packed cells. Iron studies- noted Plan GI has been consulted- they are prepping her for a possible Colonoscopy and EGD in am monitor H/H continue to dc Lovenox Current Visit: Yes Hospitalist: Subjective Interval history: Patient is breathing better. H/H is stable.She has been scheduled for an EGD and Colonoscopy in am. Exam - Constitutional Vitals: Period Temp Pulse Resp BP Sys/Rodriguez Pulse Ox Last 24 Hr 97.1 F-98.3 F 64-116 18-64 101-148/60-72 94-99 General appearance: no acute distress - Head Head exam: Present: normal inspection - Respiratory Respiratory exam: Present: clear to auscultation bilaterally - Cardiovascular Cardiovascular exam: Present: regular rate and rhythm - GI/Abdominal GI/Abdominal exam: Present: normal bowel sounds - Extremities Exam Extremities exam: Present: normal inspection - Neurological Exam Neurological exam: Present: alert, oriented X3 Results - Labs CBC & BMP: 03/23/17 05:34 03/23/17 05:34 Lab Results: I have reviewed the past 24 hour labs Specialty Discharge - Follow Up or Referrals Follow up with: Joel Gary MD [Physician] - (2 week appointment bmp,cbc,chest x ray)
[2017-03-23] MEDS ORDERED: POLYETHYLENE GLYCOL POWDER 255 GM BOTTLE PO ONE (18:00)
[2017-03-23] MEDS: ONDANSETRON 4 MG/2 ML VIAL IV PRN (20:09)
[2017-03-23] MEDS ORDERED: MAGNESIUM CITRATE 300 ML BOTTLE PO ONE (21:00)
[2017-03-24] MEDS: IPRATROPIUM 500 MCG/2.5 ML NEB RESP TX SCH ×4 (00:33→19:19)
[2017-03-24] MEDS: BISACODYL 5 MG TABLET PO SCH (01:32)
[2017-03-24] MEDS: oxyCODONE/ACETAMINOPHEN 5-325 MG TABLET PO PRN ×4 (01:32→20:57)
[2017-03-24] MEDS: LEVOFLOXACIN INJ 750 MG in PREMIX 1 EACH IV SCH (01:33)
[2017-03-24] MEDS: ALPRAZolam 0.5 MG TABLET PO PRN ×2 (03:35→13:19)
[2017-03-24 05:45] LABS: Basophils % 0.1 % (0.0-0.8); Eosinophils % 0.4 % (0.00-10.9); Hematocrit 29.2 VOL% (35.7-47.0); Hemoglobin 9.4 GM/DL (12.0-16.0); Immature Granulocytes % 5.4 %; Immature Granulocytes Absolute 0.59 #; Lymphocytes # 1.5 10*3/uL (1.4-4.0); Lymphocytes % 13.4 % (21.3-54.2); Mean Corpuscular HGB Conc 32.2 GM/DL (32-36); Mean Corpuscular Hemoglobin 31 PG (27-34); Mean Corpuscular Volume 95.1 FL (87-102); Monocytes # 0.5 10*3/uL (0.11-0.8); Monocytes % 4.7 % (1.7-12.7); Neutrophils # 8.3 10*3/uL (1.4-7.4); Platelet Count 300 T/CUMM (130-400); Red Blood Count 3.07 MC/CUMM (3.8-5.5); Red Cell Distribution Width 17.6 % (9.3-17.3); White Blood Count 10.9 T/CUMM (4-12)
[2017-03-24 06:22] LABS: Calcium 8.2 MG/DL (8.5-10.1); Osmolality,Calculated 276.4 MOS/KG (273-304)
[2017-03-24 06:38] LABS: Band Neutrophils 2 % (0-10); Lymphocytes 9 % (20-55); Myelocytes 1 %; Segmented Neutrophils 85 % (50-85); Total Cells Counted 100
[2017-03-24 06:39] LABS: Macrocytosis 1+; Platelet Estimate Adequate; Polychromasia Slight; Target Cells Slight
[2017-03-24] MEDS ORDERED: PHENYLEPHRINE 1 MG/10 ML SYRINGE IV ONE (08:28)
[2017-03-24] MEDS ORDERED: PROPOFOL 200 MG/20 ML VIAL IV ONE (08:28)
[2017-03-24] MEDS ORDERED: LIDOCAINE 100 MG/5 ML SYRINGE ONE (08:28)
--- NOTE | 2017-03-24 08:29 | Pulmonology Progress Note ---
Pulmonary - PN: Subj Interval history: This 56-year-old white female has severe COPD. She is on home oxygen. An acute exacerbation over week that got worse. Was intubated and admitted yesterday. This morning she is much more alert. ABGs much improved. We will start CPAP and see if we can get her extubated. 03/17/2017 patient did well with CPAP yesterday. PCO2 is now down to normal. Will try to get her extubated this morning 03/18/2017 patient was extubated yesterday without difficulty. She is taking clear liquids for supper. She has some mild nausea this morning otherwise feeling better. She has grown Klebsiella and Pseudomonas from bronchial washings. She is well covered with cefepime and Levaquin. She could go to the floor today. Theophylline level is low. Stopping Aminophyllin. Continuing Daliresp. Need to watch that because it can cause some nausea. 03/19/2017 patient now on 5 E. She is coughing a good bit and short of breath with effort but is better. She is alert and I think we can start reducing her medications. Probably still needs IV meds another day or 2. 03/20/2017 patient is feeling a little better. Still having a good bit of coughing. I do think she needs IV medication for at least another 1-2 days from now 03/21/2017 patient feeling much better but her hematocrit has dropped to 20. She has a history of anemia requiring blood transfusions following surgery in the past. She does not know the cause of the anemia. I have ordered anemia profile. She is to get blood today. She may need a GI endoscopy set up if stools are positive. Her COPD is improved. I have decreased her steroids. Probably could change to oral medications in another day or so. 03/24/2017 patient is much better. She has been transfused and her hematocrit is around 30. She is set up for EGD and colonoscopy today. She does have severe COPD and has recently been mechanically ventilated. Will need close watch by anesthesia during procedure. Exam (Progress Note) - Constitutional Vitals: Period Temp Pulse Resp BP Sys/Rodriguez Pulse Ox Last 24 Hr 97.5 F-98.9 F 60-102 16-20 86-117/56-77 93-100 Exam: Patient's alert and responsive. Seems oriented. Wearing nasal oxygen. Vital signs are normal. Pupils react to light. Neck is supple. Chest reveals prolonged expiratory phase but I do not hear any wheezing today. Heart normal rate rhythm no murmurs. Abdomen soft nontender no masses. Bowel sounds present. Extremities no clubbing cyanosis edema. Results - Labs CBC & BMP: 03/24/17 05:14 03/24/17 05:14 Lab Results: I have reviewed the past 24 hour labs Assessment and Plan (1) Acute and chronic respiratory failure ([id number]) Status: Acute Assessment and plan: She has been on oxygen. Her PCO2 runs around 60 when she is at her baseline. It was up to 80. She may be difficult to wean. 03/16/2017 ABGs improved. PCO2 down to 44. Needs a little Diamox. Reduce FiO2. Start weaning today. May be able to get her extubated today but probably will take another day. 03/17/2017 PCO2 down to normal. Should be able to extubate today. 03/18/2017 patient has done well postextubation. Continuing low flow oxygen. 03/19/2017 Will reduce Solu-Medrol a little. Still needs oxygen. 03/20/2017 patient is off the ventilator. Still requiring oxygen. She had both hypercarbic and hypoxemic acute on chronic respiratory failure. They are improved 03/21/2017 patient doing well off the ventilator. She is on nasal oxygen. The severe anemia is aggravating things. She has oxygen at home but has asked for a different set up. Social work is looking into that. If she is discharged this weekend I could see her in the clinic in about 2 weeks for follow-up. 03/24/2017 she is over the acute episode of respiratory failure. Still requiring some nasal oxygen. She does tend to retain carbon dioxide with sedation. Current Visit: Yes Qualifiers: Respiratory failure complication: hypoxia and hypercapnia Qualified Code(s) : J96.21 - Acute and chronic respiratory failure with hypoxia; J96.22 - Acute and chronic respiratory failure with hypercapnia (2) Severe protein-calorie malnutrition Status: Acute Assessment and plan: We will need NG tube feedings 03/16/2017 continuing NG feeding 03/17/2017 continuing management per NG tube. 03/18/2017 progress diet orally. 03/19/2017 progressing with diet. 03/20/2017 patient eating a little better. 03/21/2017 appetite is better. Current Visit: Yes (3) COPD exacerbation Status: Acute Assessment and plan: Bronchodilator steroids and empiric antibiotics. Since she has severe COPD would go with Levaquin plus cefepime. 03/16/2017 continuing intravenous corticosteroids and antibiotics. Broad- spectrum due to her COPD. Continuing bronchodilators. 03/17/2017 no active bronchospasm. Continue current medications. 03/18/2017 bronchospasm improving. Reduce steroids. We have also added Daliresp for long-term treatment. Watch for nausea. 03/19/2017 reduce steroids today. Probably needs another day or 2 of IV medications. 03/20/2017 still having exacerbation. Keep on IV steroids for now as well as IV antibiotics. 03/21/2017 have reduce steroids a little. Could go to oral medications tomorrow. 03/24/2017 tapering steroids. About ready for discharge from pulmonary standpoint. Will need to be watched overnight after scopes. Current Visit: No Specialty Discharge - Follow Up or Referrals Follow up with: Joel Gary MD [Physician] - (2 week appointment bmp,cbc,chest x ray)
--- NOTE | 2017-03-24 08:38 | Operative Note ---
Date of procedure: 03/24/17 Pre-op diagnosis: Anemia down to hematocrit 20.5, melena, generalized abdominal pain Post-op diagnosis: other (Large duodenal/pyloric channel ulcer 2.5 cm in size, margins biopsied. Mild gastritis there was patchy noted in the stomach not thought to be the source the patient's bleeding, fungal appearing esophagitis with some reflux esophagitis elements as well.) Procedure: PROCEDURE: Esophagogastroduodenoscopy (EGD) with cold biopsy for pathology REFERRING PHYSICIAN: Mathew Bucio MD INDICATIONS: Epigastric and generalized abdominal pain, blood loss with hematocrit of 20.5% now up to almost 30% with transfusion, abnormal weight loss/ malnutrition the prior H&P was reviewed and interrim changes are as noted: No change from GI consultation 2 days ago ENDOSCOPIST: Brien Tobias MD ENDOSCOPE: Olympus Video 100 System upper endoscope ASA CLASS: 3 EXAM: CV: regular rate and rhythm respiratory: Clear without wheezes abdominal: active bowel sounds MEDICATION: Per nursing anesthesia protocol, see their notes PROCEDURE: After discussion of the potential risks and benefits of upper endoscopy, the informed consent was obtained. The patient was then placed in the left lateral decubitus position where sedation was achieved as noted above. Esophageal intubation was performed without difficulty, and the endoscope was advanced through the esophagus, stomach and duodenum. A slow withdrawal was then performed with retroflexion in the stomach for careful inspection of the incisura angularis, fundus and cardia. The scope was then returned to a neutral position and withdrawn through the esophagus. The patient tolerated the procedure well and without complication. BIOPSIES: Gastric antrum/body, duodenum PHOTOGRAPHS: Obtained FINDINGS: Hypopharynx and Larynx: Gross evidence of fungal elements Esohagoscopy Upper and middle thirds: Apparent fungal esophagitis, biopsied Lower third apparent fungal esophagitis mixed with reflux esophagitis, biopsied Esophogastric junctions: Fungal esophagitis mixed with reflux esophagitis, biopsied Gastroscopy: Cardia/Fundus: 2 cm hiatal hernia noted, some retained green fluid in the stomach Body: Mild patchy gastritis, biopsied Antrum and pylorus mild patchy gastritis, biopsied Duodenoscopy: Bulb just inside the pyloric channel there is a sizable 2.5 cm ulcer with pigmented spot thought to be the source the patient's melena, ulcer borders were biopsied Second and third portions: Normal, biopsied for sprue IMPRESSION: Large duodenal/pyloric channel ulcer 2.5 cm in size, margins biopsied. Mild gastritis there was patchy noted in the stomach not thought to be the source the patient's bleeding, fungal appearing esophagitis with some reflux esophagitis elements as well. RECOMMENDATIONS: Follow up for biopsy results in 1-2 weeks by phone [phone] Continue anti-gastroesophageal reflux measures (avoid carbonated and acidic beverages, avoid eating within 2 hours of bedtime, avoid tight fitting clothing , and elevate the front bed posts 6 inches prior to sleeping. Fluconazole 100 mg p.o. daily 10 days Protonix 40 mg p.o. twice daily Brien Tobias MD COPY TO: Mathew Bucio MD Anesthesia: MAC Surgeon / Physician: Brien Tobias Estimated blood loss: minimal Specimens: other (Distal esophagus, gastric antrum/body, duodenum) Condition: stable Disposition: post procedure unit (G.I. Suite) Results - Labs CBC & BMP: 03/24/17 05:14 03/24/17 05:14 Discharge Plan - Discharge Medications No Action Gabapentin 600 mg PO TID Cyproheptadine HCl 4 mg PO TID predniSONE TAB [PredniSONE] 10 mg PO BID Citalopram [CeleXA] 40 mg PO DAILY Albuterol/Ipratropium Neb [Duoneb] 3 ml RESP TX RT Q6H PRN PRN Reason: Shortness Of Breath/Wheezing Albuterol Sulfate [Proair HFA] 2 puff INH Q4H PRN PRN Reason: Shortness Of Breath/Wheezing ALPRAZolam [Xanax] 0.5 mg PO TID Budesonide/Formoterol 160-4.5 [Symbicort 160-4.5] 2 puff INH DAILY Oxycodone HCl/Acetaminophen [Percocet 10-325 mg Tablet] 1 each PO Q6H - Follow Up or Referral Follow Up: Joel Gary MD [Physician] - (2 week appointment bmp,cbc,chest x ray) - Forms/Instructions
[2017-03-24] MEDS ORDERED: predniSONE 20 MG TABLET PO SCH (09:00)
--- NOTE | 2017-03-24 09:08 | Operative Note ---
Date of procedure: 03/24/17 Pre-op diagnosis: Anemia, guaiac positive stools, hematocrit down to 20.5% Post-op diagnosis: other (Large duodenal/pyloric channel ulcer 2.5 cm in size, margins biopsied. Mild gastritis there was patchy noted in the stomach not thought to be the source the patient's bleeding, fungal appearing esophagitis with some reflux esophagitis elements as well.) Procedure: PROCEDURE: Colonoscopy REFERRING PHYSICIAN: Mathew Bucio MD INDICATIONS: Hematocrit down to 20.5%, guaiac positive stools, melena, this patient incidentally has a duodenal ulcer approximately thought to be the source of her bleeding. The prior H&P was reviewed and interrim changes are as noted: No change from GI consultation 2 days ago ENDOSCOPIST: Brien Tobias MD ENDOSCOPE: [employer] Video 100 System colonoscope COLON PREPARATION: 238 gm of PEG containing laxative and 1.9 liters of gatoraid/sports drink and dulcolax 15 mg q8 hours x 3 ASA CLASS: 3 EXAM: CV: regular rate and rhythm Respiratory: Clear without wheezes Abdominal: active bowel sounds Rectal: Good tone, no fissures or fistulas MEDICATION: Per nursing anesthesia protocol, see their notes PROCEDURE: After discussion of the potential risks and benefits of colonoscopy, the informed consent was obtained, from patient or health care surrogate. The patient was then placed in the left lateral decubitus position where sedation was achieved as noted above. Rectal examination was followed by insertion of the colonoscope. The colonoscope was passed under direct visualization to the cecum. Advancement was facilitated by insertion/withdrawl techniques, abdominal pressure and patient positioning. Once the cecal pole was reached, slow withdrawal was performed with the findings as noted below. The patient tolerated the procedure well and without complication. QUALITY OF PREP: Good WITHDRAWL TIME: 6 minutes 13 seconds BIOPSIES: None obtained PHOTOGRAPHS: Obtained FINDINGS: The musoca appeared normal in the following regions: rectum, sigmoid colon, descending colon, splenic flexure, transverse colon, hepatic flexure, ascending colon and cecum. Position within the cecum was confirmed by ileocecal valve, appendiceal oriface, and the convergence of folds (crows foot) . No colitis, polyp, mass or AVM was noted throughout the colon. Heavy left- sided diverticulosis noted. Intubation of the TI was achieved x 5 cm with normal appearence, and small internal hemorrhoids noted on retroflex IMPRESSION: Heavy left-sided diverticulosis otherwise normal colonoscopy to the small bowel with small internal hemorrhoids noted on retroflex RECOMMENDATIONS: High fiber diet Repeat colonosocopy will be in 10 years Citrucel 1 tablespoon in 12 oz juice BID: 1 bottle: :11 Follow up by phone for biopsy results in 1-2 weeks by phone Brien Tobias MD COPY TO: Mathew Bucio MD Anesthesia: MAC Surgeon / Physician: Brien Tobias Estimated blood loss: minimal Specimens: none sent Condition: stable Disposition: post procedure unit (G.I. Suite) Results - Labs CBC & BMP: 03/24/17 05:14 03/24/17 05:14 Discharge Plan - Discharge Medications No Action Gabapentin 600 mg PO TID Cyproheptadine HCl 4 mg PO TID predniSONE TAB [PredniSONE] 10 mg PO BID Citalopram [CeleXA] 40 mg PO DAILY Albuterol/Ipratropium Neb [Duoneb] 3 ml RESP TX RT Q6H PRN PRN Reason: Shortness Of Breath/Wheezing Albuterol Sulfate [Proair HFA] 2 puff INH Q4H PRN PRN Reason: Shortness Of Breath/Wheezing ALPRAZolam [Xanax] 0.5 mg PO TID Budesonide/Formoterol 160-4.5 [Symbicort 160-4.5] 2 puff INH DAILY Oxycodone HCl/Acetaminophen [Percocet 10-325 mg Tablet] 1 each PO Q6H - Follow Up or Referral Follow Up: Joel Gary MD [Physician] - (2 week appointment bmp,cbc,chest x ray) - Forms/Instructions
--- NOTE | 2017-03-24 09:15 | Gastrointestinal Progress Note ---
Assessment and Plan (1) Duodenal ulcer with hemorrhage Status: Acute Assessment and plan: This proved to be the patient's source for bleeding, this was a sizable 2.5 cm ulcer just past the pyloric channel in the proximal duodenum. This did have a pigmented spot indicative of potential bleeding vessel. Margins were biopsied, biopsies were taken the gastric antrum and body to look for Helicobacter pylori , this may be NSAID induced. She did not appear to be actively bleeding. Agree with Protonix twice daily and await biopsy results. If the patient is able to eat we can contact her with these biopsies when they become available. Current Visit: Yes (2) Gastrointestinal hemorrhage with melena Status: Acute Assessment and plan: This patient has a combination of severe epigastric pain and dark stools that have been on and off for several weeks and also has a history of gastric ulcer some 20 years ago. She certainly could have recurrence of this which has been worsened during this admission by exposure to Lovenox. There is certainly guaiac positive stool and physical examination and I strongly suspect there may be gastric ulcers, erosions but cannot rule out gastric cancer or AVMs in this setting. We will perform upper endoscopy and given the fact the patient has not had colorectal cancer screening in many years will likely add on a colonoscopy seeing is her medical rate is dropped down to 20% during this admission. She could potentially be discharged on Friday if no cancer no active bleeding or discovered. Seeing as she is eating at this point I am going to advance her to oral Protonix twice daily to suppress the acidity in her stomach. This should help out with pain and potential ulcer disease we will check for Helicobacter pylori during upper endoscopy. She does not know if she has a history of polyps. The patient understands the risks of the procedure include but are not limited to: Bleeding, infection, perforation, cardiac and pulmonary compromise. 03/23/17--this patient may have a recurrence of her gastric ulcer, there may be gastritis or other cause for her anemia. Given the dark stools a suspect probably the former. She is due to undergo colonoscopy before she leaves at the same time, due to the extremely low hematocrit. It is many as 10% of cases with iron deficiency anemia there are 2 sources causing the problem. She may be able to be discharged after the upper and lower endoscopies tomorrow. 03/24/17--the patient's colonoscopy was essentially normal where is the upper endoscopy showed a 2.5 cm in the proximal duodenal bulb/pyloric channel which appeared to be the source the patient's bleeding. Mild gastritis and some fungal esophagitis were also noticed incidentally. Will start patient on fluconazole in addition to the twice daily pantoprazole. If her hematocrit remains stable she is certainly welcome to be followed up in the clinic. I have written her prescription which I have paperclip to the front of the chart for use as an outpatient. Fungal esophagitis will require 10 days worth of the fluconazole. This as well as the ulcer thought to be the source the patient's anorexia/pain. Current Visit: Yes (3) Generalized abdominal pain Status: Acute Assessment and plan: Most of the pains for this patient are in the epigastric region which would tend to point towards peptic ulcer disease or erosive disease. Some of the pain is in the bilateral lower quadrants and I suspect this may be due to constipation induced irritation. Physical examination she does have hard stools , we cannot rule out a lower GI bleeding source and so we will add a colonoscopy as previously mentioned to the upper endoscopy also to be done on 03/24/17. 03/23/17--The abdominal pain has resolved completely at this point. We will continue to observe. 03/24/17--the colonoscopy demonstrated some fairly severe left-sided diverticulosis but no evidence of diverticulitis or mass or polyp. Generalized abdominal pain may be associated with constipation/IBS. Current Visit: Yes (4) Severe protein-calorie malnutrition Status: Acute Assessment and plan: Not sure that I would call her malnutrition severe she does have an albumin of 2.3 and she does have poor p.o. intake. We will check and make sure she does not have colon cancer and I suspect that is her gastritis is treated she will improve as far as her appetite. She needs to steer clear of NSAIDs for the future if at all possible. Again Protonix 40 mg twice daily has been initiated to help out with the underlying inflammation in the stomach. Steroids have to be continued for the present time because of her underlying COPD. 03/23/17--This is another reason colonoscopy is being done to look for a cause for the patient's malnutrition. Upper endoscopy could certainly result in decreased appetite which could have a negative impact on her p.o. intake as well. EGD and colonoscopy tomorrow planned. 03/24/17--I believe this is probably a consequence of the ulcer and reflux/ fungal esophagitis. We will continue to observe as these are treated appropriately. We will see how she does with a diet in-house. Current Visit: Yes Gastroenterology - PN: Subj Interval history: No new complaints aside from anorexia. Patient is hungry enough to try and eat something today. She did not care much for the prep. Exam (Progress Note) - Constitutional Vitals: Period Temp Pulse Resp BP Sys/Rodriguez Pulse Ox Last 24 Hr 97.5 F-98.9 F 60-102 16-22 86-117/56-77 93-100 General appearance: mild distress - Head Head exam: Present: normocephalic - Eye Eye exam: Present: EOMI Pupils: Present: ALECIA - Respiratory Respiratory exam: Present: clear to auscultation bilaterally - Cardiovascular Cardiovascular exam: Present: regular rate and rhythm - GI/Abdominal GI/Abdominal exam: Present: normal bowel sounds, distended, tenderness ( Epigastric greater than elsewhere.), soft. Absent: rebound - Neurological Exam Neurological exam: Present: alert, oriented X3 - Psychiatric Psychiatric exam: Present: normal affect, normal mood - Skin Skin exam: Present: warm Results - Labs CBC & BMP: 03/24/17 05:14 03/24/17 05:14 Specialty Discharge - Follow Up or Referrals Follow up with: Joel Gary MD [Physician] - (2 week appointment bmp,cbc,chest x ray)
--- NOTE | 2017-03-24 09:16 | Anesthesia Post-Op ---
Anesthesia Post OP - Post Ansesthetic Evaluation Patient seen in post op: Yes Resp: within normal limits CV: within normal limits Mental: within normal limits Temp: within normal limits [id number]: within normal limits Nausea and Vomiting: within normal limits Pain: within normal limits
[2017-03-24] MEDS: CITALOPRAM 40 MG TABLET PO SCH (10:10)
[2017-03-24] MEDS: PANTOPRAZOLE 40 MG TABLET PO SCH ×2 (10:10→20:56)
[2017-03-24] MEDS: DESITIN 4OZ/NYSTATIN 15 GRAM MIXTURE PASTE TOP SCH ×2 (10:10→20:58)
[2017-03-24] MEDS: ROFLUMILAST 500 MCG TABLET PO SCH (10:10)
[2017-03-24] MEDS: GABAPENTIN 300 MG CAPSULE PO SCH ×3 (10:10→20:56)
--- NOTE | 2017-03-24 10:31 | Hospitalist Progress Note ---
Assessment and Plan (1) COPD exacerbation Status: Acute Assessment and plan: Dr Gary is following.. Follow his recommendations on steroids and bronchodilators dose. Current Visit: No (2) Acute and chronic respiratory failure ([id number]) Status: Acute Assessment and plan: much improved Current Visit: Yes Qualifiers: Respiratory failure complication: hypoxia and hypercapnia Qualified Code(s) : J96.21 - Acute and chronic respiratory failure with hypoxia; J96.22 - Acute and chronic respiratory failure with hypercapnia (3) Severe protein-calorie malnutrition Status: Acute Assessment and plan: Patient is eating better, follow Dietitian's recommendations. Current Visit: Yes (4) Anemia Status: Acute Assessment and plan: Acute blood loss anemia with 4+ occult stool blood. S/p transfusion with 2units of packed cells. Iron studies- noted She had a normal Colonoscopy this am but EGD showed a 2.5 cm in the proximal duodenal bulb/pyloric channel which appeared to be the source the patient's bleeding. Mild gastritis and some fungal esophagitis were also noticed incidentally. Plan Will start patient on fluconazole x 10days in addition to the twice daily pantoprazole as recommended by GI continue to monitor H/H Current Visit: Yes (5) Fungal esophagitis Status: Acute Assessment and plan: Will start patient on fluconazole x 10days in addition to the twice daily pantoprazole as recommended by GI. Current Visit: Yes Hospitalist: Subjective Interval history: Patient went for an EGD and Colonoscopy this am. Exam - Constitutional Vitals: Period Temp Pulse Resp BP Sys/Rodriguez Pulse Ox Last 24 Hr 97.5 F-98.9 F 60-102 16-23 86-117/56-77 93-100 General appearance: no acute distress - Respiratory Respiratory exam: Present: clear to auscultation bilaterally - Cardiovascular Cardiovascular exam: Present: regular rate and rhythm - GI/Abdominal GI/Abdominal exam: Present: normal bowel sounds - Extremities Exam Extremities exam: Present: normal inspection - Neurological Exam Neurological exam: Present: alert, oriented X3 Results - Labs CBC & BMP: 03/24/17 05:14 03/24/17 05:14 Lab Results: I have reviewed the past 24 hour labs Specialty Discharge - Follow Up or Referrals Follow up with: Joel Gary MD [Physician] - (2 week appointment bmp,cbc,chest x ray)
[2017-03-24] MEDS: ONDANSETRON 4 MG/2 ML VIAL IV PRN ×2 (11:01→20:10)
[2017-03-24] MEDS: NYSTATIN 500,000 UNIT/5 ML UDCUP SWISH/SWAL SCH ×4 (13:16→20:56)
[2017-03-25] MEDS: IPRATROPIUM 500 MCG/2.5 ML NEB RESP TX SCH ×4 (00:03→19:24)
[2017-03-25] MEDS: oxyCODONE/ACETAMINOPHEN 5-325 MG TABLET PO PRN ×2 (07:53→19:19)
--- NOTE | 2017-03-25 08:17 | Gastrointestinal Progress Note ---
Assessment and Plan (1) Duodenal ulcer with hemorrhage Status: Acute Assessment and plan: This proved to be the patient's source for bleeding, this was a sizable 2.5 cm ulcer just past the pyloric channel in the proximal duodenum. This did have a pigmented spot indicative of potential bleeding vessel. Margins were biopsied, biopsies were taken the gastric antrum and body to look for Helicobacter pylori , this may be NSAID induced. She did not appear to be actively bleeding. Agree with Protonix twice daily and await biopsy results. If the patient is able to eat we can contact her with these biopsies when they become available. 03/25/17--Biopsies are pending but I doubt this will be a malignancy. Patient will need to avoid NSAIDs for the next month while this is healing up. Her hematocrit appears to be stable. She has a prescription for the Protonix twice daily as well as fluconazole for her fungal esophagitis. She is stable enough to be able to be discharged in my opinion at this time. The GI workup is complete I will sign off at this time, but will call the patient when the biopsies become available if they are not available at the time of discharge. Current Visit: Yes (2) Gastrointestinal hemorrhage with melena Status: Acute Assessment and plan: This patient has a combination of severe epigastric pain and dark stools that have been on and off for several weeks and also has a history of gastric ulcer some 20 years ago. She certainly could have recurrence of this which has been worsened during this admission by exposure to Lovenox. There is certainly guaiac positive stool and physical examination and I strongly suspect there may be gastric ulcers, erosions but cannot rule out gastric cancer or AVMs in this setting. We will perform upper endoscopy and given the fact the patient has not had colorectal cancer screening in many years will likely add on a colonoscopy seeing is her medical rate is dropped down to 20% during this admission. She could potentially be discharged on Friday if no cancer no active bleeding or discovered. Seeing as she is eating at this point I am going to advance her to oral Protonix twice daily to suppress the acidity in her stomach. This should help out with pain and potential ulcer disease we will check for Helicobacter pylori during upper endoscopy. She does not know if she has a history of polyps. The patient understands the risks of the procedure include but are not limited to: Bleeding, infection, perforation, cardiac and pulmonary compromise. 03/23/17--this patient may have a recurrence of her gastric ulcer, there may be gastritis or other cause for her anemia. Given the dark stools a suspect probably the former. She is due to undergo colonoscopy before she leaves at the same time, due to the extremely low hematocrit. It is many as 10% of cases with iron deficiency anemia there are 2 sources causing the problem. She may be able to be discharged after the upper and lower endoscopies tomorrow. 03/24/17--the patient's colonoscopy was essentially normal where is the upper endoscopy showed a 2.5 cm in the proximal duodenal bulb/pyloric channel which appeared to be the source the patient's bleeding. Mild gastritis and some fungal esophagitis were also noticed incidentally. Will start patient on fluconazole in addition to the twice daily pantoprazole. If her hematocrit remains stable she is certainly welcome to be followed up in the clinic. I have written her prescription which I have paperclip to the front of the chart for use as an outpatient. Fungal esophagitis will require 10 days worth of the fluconazole. This as well as the ulcer thought to be the source the patient's anorexia/pain. 03/25/17--The patient is doing well with only minimal epigastric tenderness. Her appetite is picking up already. She has prescriptions written for the Protonix and fluconazole and her chart. She is safe for discharge in my opinion today. I would like her to follow-up with me in 6 weeks, so I can check her weight and hematocrit at that time. If biopsies are not back this afternoon by the time she is discharged certainly would not hold her here awaiting these results. I will contact her when these become available. Current Visit: Yes (3) Generalized abdominal pain Status: Acute Assessment and plan: Most of the pains for this patient are in the epigastric region which would tend to point towards peptic ulcer disease or erosive disease. Some of the pain is in the bilateral lower quadrants and I suspect this may be due to constipation induced irritation. Physical examination she does have hard stools , we cannot rule out a lower GI bleeding source and so we will add a colonoscopy as previously mentioned to the upper endoscopy also to be done on 03/24/17. 03/23/17--The abdominal pain has resolved completely at this point. We will continue to observe. 03/24/17--the colonoscopy demonstrated some fairly severe left-sided diverticulosis but no evidence of diverticulitis or mass or polyp. Generalized abdominal pain may be associated with constipation/IBS. 03/25/17--Overall this pain appears improved. Continue low level laxatives with MiraLAX as needed for the underlying constipation. Current Visit: Yes (4) Severe protein-calorie malnutrition Status: Acute Assessment and plan: Not sure that I would call her malnutrition severe she does have an albumin of 2.3 and she does have poor p.o. intake. We will check and make sure she does not have colon cancer and I suspect that is her gastritis is treated she will improve as far as her appetite. She needs to steer clear of NSAIDs for the future if at all possible. Again Protonix 40 mg twice daily has been initiated to help out with the underlying inflammation in the stomach. Steroids have to be continued for the present time because of her underlying COPD. 03/23/17--This is another reason colonoscopy is being done to look for a cause for the patient's malnutrition. Upper endoscopy could certainly result in decreased appetite which could have a negative impact on her p.o. intake as well. EGD and colonoscopy tomorrow planned. 03/24/17--I believe this is probably a consequence of the ulcer and reflux/ fungal esophagitis. We will continue to observe as these are treated appropriately. We will see how she does with a diet in-house. 03/25/17--The patient was again advised to drink 4 ounces of water after taking her inhaled steroid doses in order to cut back on the fungal esophagitis in the future. Will follow her up to see if her weight is improved by the time she comes back into the office in 6 weeks. Thank you for the opportunity see this very pleasant lady, will be signing off at this time. Current Visit: Yes Gastroenterology - PN: Subj Interval history: Patient is doing well this morning with only minimal epigastric tenderness. She is asking if she could be discharged today. I told her this was fairly likely to occur. From my standpoint she is doing well and can be discharged, she needs to remain on fluconazole for the next 9 days and take her acid blocking medication twice daily. Exam (Progress Note) - Constitutional Vitals: Period Temp Pulse Resp BP Sys/Rodriguez Pulse Ox Last 24 Hr 97.4 F-98.9 F 82-103 17-23 88-105/59-70 93-99 General appearance: under weight - Head Head exam: Present: normocephalic - Eye Eye exam: Present: EOMI Pupils: Present: ALECIA - Respiratory Respiratory exam: Present: clear to auscultation bilaterally. Absent: rhonchi, stridor, wheezes - Cardiovascular Cardiovascular exam: Present: regular rate and rhythm - GI/Abdominal GI/Abdominal exam: Present: normal bowel sounds, tenderness (Minimal epigastric tenderness), soft. Absent: distended, guarding, rebound - Neurological Exam Neurological exam: Present: alert, oriented X3, altered - Psychiatric Psychiatric exam: Present: normal affect, normal mood - Skin Skin exam: Present: warm Results - Labs CBC & BMP: 03/24/17 05:14 03/24/17 05:14 Specialty Discharge - Follow Up or Referrals Follow up with: Joel Gary MD [Physician] - (2 week appointment bmp,cbc,chest x ray)
--- NOTE | 2017-03-25 08:44 | Pulmonology Progress Note ---
Pulmonary - PN: Subj Interval history: This 56-year-old white female has severe COPD. She is on home oxygen. An acute exacerbation over week that got worse. Was intubated and admitted yesterday. This morning she is much more alert. ABGs much improved. We will start CPAP and see if we can get her extubated. 03/17/2017 patient did well with CPAP yesterday. PCO2 is now down to normal. Will try to get her extubated this morning 03/18/2017 patient was extubated yesterday without difficulty. She is taking clear liquids for supper. She has some mild nausea this morning otherwise feeling better. She has grown Klebsiella and Pseudomonas from bronchial washings. She is well covered with cefepime and Levaquin. She could go to the floor today. Theophylline level is low. Stopping Aminophyllin. Continuing Daliresp. Need to watch that because it can cause some nausea. 03/19/2017 patient now on 5 E. She is coughing a good bit and short of breath with effort but is better. She is alert and I think we can start reducing her medications. Probably still needs IV meds another day or 2. 03/20/2017 patient is feeling a little better. Still having a good bit of coughing. I do think she needs IV medication for at least another 1-2 days from now 03/21/2017 patient feeling much better but her hematocrit has dropped to 20. She has a history of anemia requiring blood transfusions following surgery in the past. She does not know the cause of the anemia. I have ordered anemia profile. She is to get blood today. She may need a GI endoscopy set up if stools are positive. Her COPD is improved. I have decreased her steroids. Probably could change to oral medications in another day or so. 03/24/2017 patient is much better. She has been transfused and her hematocrit is around 30. She is set up for EGD and colonoscopy today. She does have severe COPD and has recently been mechanically ventilated. Will need close watch by anesthesia during procedure. 03/25/2017 GI evaluation has indicated a 2.5 cm duodenal ulcer. This is likely to be the cause of her blood loss. She is now on Protonix twice a day. Will need follow-up CBCs. I have advised her to watch her stools for signs of blood mainly melena. I will see her back in a month or so for her COPD and we can check a CBC at that time. I did stop her prednisone. She is not wheezing. Prednisone increases the risk for ulcers as well. Exam (Progress Note) - Constitutional Vitals: Period Temp Pulse Resp BP Sys/Rodriguez Pulse Ox Last 24 Hr 97.4 F-98.9 F 20-103 17-23 88-105/59-70 93-99 Exam: Patient's alert and responsive. Seems oriented. Wearing nasal oxygen. Vital signs are normal. Pupils react to light. Neck is supple. Chest reveals prolonged expiratory phase but I do not hear any wheezing today. Heart normal rate rhythm no murmurs. Abdomen soft nontender no masses. Bowel sounds present. Extremities no clubbing cyanosis edema. Results - Labs CBC & BMP: 03/24/17 05:14 03/24/17 05:14 Lab Results: I have reviewed the past 24 hour labs Assessment and Plan (1) Acute and chronic respiratory failure ([id number]) Status: Acute Assessment and plan: She has been on oxygen. Her PCO2 runs around 60 when she is at her baseline. It was up to 80. She may be difficult to wean. 03/16/2017 ABGs improved. PCO2 down to 44. Needs a little Diamox. Reduce FiO2. Start weaning today. May be able to get her extubated today but probably will take another day. 03/17/2017 PCO2 down to normal. Should be able to extubate today. 03/18/2017 patient has done well postextubation. Continuing low flow oxygen. 03/19/2017 Will reduce Solu-Medrol a little. Still needs oxygen. 03/20/2017 patient is off the ventilator. Still requiring oxygen. She had both hypercarbic and hypoxemic acute on chronic respiratory failure. They are improved 03/21/2017 patient doing well off the ventilator. She is on nasal oxygen. The severe anemia is aggravating things. She has oxygen at home but has asked for a different set up. Social work is looking into that. If she is discharged this weekend I could see her in the clinic in about 2 weeks for follow-up. 03/24/2017 she is over the acute episode of respiratory failure. Still requiring some nasal oxygen. She does tend to retain carbon dioxide with sedation. 03/25/2017 acute respiratory failure is resolved. Current Visit: Yes Qualifiers: Respiratory failure complication: hypoxia and hypercapnia Qualified Code(s) : J96.21 - Acute and chronic respiratory failure with hypoxia; J96.22 - Acute and chronic respiratory failure with hypercapnia (2) Severe protein-calorie malnutrition Status: Acute Assessment and plan: We will need NG tube feedings 03/16/2017 continuing NG feeding 03/17/2017 continuing management per NG tube. 03/18/2017 progress diet orally. 03/19/2017 progressing with diet. 03/20/2017 patient eating a little better. 03/21/2017 appetite is better. 03/25/2017 she is eating better. Certainly an ulcer might have been a part of the cause for this. Current Visit: Yes (3) COPD exacerbation Status: Acute Assessment and plan: Bronchodilator steroids and empiric antibiotics. Since she has severe COPD would go with Levaquin plus cefepime. 03/16/2017 continuing intravenous corticosteroids and antibiotics. Broad- spectrum due to her COPD. Continuing bronchodilators. 03/17/2017 no active bronchospasm. Continue current medications. 03/18/2017 bronchospasm improving. Reduce steroids. We have also added Daliresp for long-term treatment. Watch for nausea. 03/19/2017 reduce steroids today. Probably needs another day or 2 of IV medications. 03/20/2017 still having exacerbation. Keep on IV steroids for now as well as IV antibiotics. 03/21/2017 have reduce steroids a little. Could go to oral medications tomorrow. 03/24/2017 tapering steroids. About ready for discharge from pulmonary standpoint. Will need to be watched overnight after scopes. 03/25/2017 she is doing much better. Antibiotics and prednisone can be stopped. She had Flor esophagitis and does need Diflucan for a few more days. Current Visit: No Specialty Discharge - Follow Up or Referrals Follow up with: Joel Gary MD [Physician] - (2 week appointment bmp,cbc,chest x ray)
[2017-03-25] MEDS ORDERED: FLUCONAZOLE 100 MG TABLET PO SCH (09:00)
[2017-03-25] MEDS: ONDANSETRON 4 MG/2 ML VIAL IV PRN ×2 (09:16→16:30)
[2017-03-25] MEDS: ALPRAZolam 0.5 MG TABLET PO PRN (09:21)
[2017-03-25] MEDS: CITALOPRAM 40 MG TABLET PO SCH (09:21)
[2017-03-25] MEDS: NYSTATIN 500,000 UNIT/5 ML UDCUP SWISH/SWAL SCH ×4 (09:21→21:27)
[2017-03-25] MEDS: ROFLUMILAST 500 MCG TABLET PO SCH (09:21)
[2017-03-25] MEDS: GABAPENTIN 300 MG CAPSULE PO SCH ×3 (09:21→21:34)
[2017-03-25] MEDS: PANTOPRAZOLE 40 MG TABLET PO SCH (09:22)
[2017-03-25] MEDS: DESITIN 4OZ/NYSTATIN 15 GRAM MIXTURE PASTE TOP SCH ×2 (09:23→23:02)
--- NOTE | 2017-03-25 11:22 | Pathology Report from [facility] ---
[facility] [place] ACCESSION # : [id number] PATIENT NAME : Pily Downing ORDERING DR : Brien Tobias MD CLINICAL HX: Melena, HX of gastric ulcer, epigastric pain POST-OP DX: Same SPECIMEN INFO: #1 Duodenal bulb & pyloric channel ulcer #2 KASHMIR #3 Esophageal BX GROSS DESCRIPTION: Received in formalin in three parts labeled:#1 PILY DOWNING & #1 is a 0.6 x 0.5 cm aggregate of rogers tissue submitted in cassette #1.#2 PILY DOWNING & #2 is a 0.6 x 0.4 cm aggregate of rogers tissue submitted in cassette #2.#3 PILY DOWNING & #3 is a 0.6 x 0.3 cm aggregate of rogers tissue submitted in cassette #3. DIAGNOSIS FOR PILY DOWNING: #1 DUODENAL BULB & PYLORIC CHANNEL ULCER BIOPSIES: Duodenal mucosa with normal villous architecture; gastric tissue with ulceration and marked acute inflammation. H. pylori not seen on special stain.# 2 KASHMIR BIOPSIES: Chronic superficial gastritis. H. pylori not seen on special stain.#3 ESOPHAGEAL BIOPSY: Fragmented esophageal squamous mucosa with epithelial hyperplasia, and ulceration. Fungal stain positive. COLLECTED DATE: 03/24/2017 [facility] REPORT DATE: 03/25/2017 ELECTRONICALLY SIGNED BY: Lolita Maria M.D. 03/25/2017 - 10:14:03 [facility] SYSTEM[facility]iz
--- NOTE | 2017-03-25 11:36 | Discharge Summary ---
Hospital Course - Hospital Course Hospital Course: History of present illness: Ms. Morris is a 56 year old female with past medical history of COPD, severe by FEV1 recently, depression/anxiety that presented with a chief complaint of shortness of breath x 1 week duration[address] She saw Dr Gary in clinic , was treated with no relief of symptoms. Her illness progressively worsen, went to [facility] emergency department where she was found to be hypoxemic and hypercapnic. She was transferred to [facility] for higher level of care .Upon arrival, she was subsequently intubated based on her gases and dyspnea and admitted to the ICU. Dr Gary saw in consultation. She was treated with IV antibiotics, solumedrol and breathing treatments.She was subsequently extubated and transferred to the floor. Sputum grew Klebsiella and pseudomonas. During admission, she became anaemic, her stool was positive 4 + occult blood.She received 2units of packed cells and GI was consulted.She had a normal Colonoscopy this am but EGD showed a 2.5 cm in the proximal duodenal bulb/pyloric channel which appeared to be the source the patient's bleeding. Mild gastritis and some fungal esophagitis were also noticed incidentally. She was started on fluconazole x 10days in addition to the twice daily pantoprazole.The patient is currently doing well with only minimal epigastric tenderness.GI wants to follow up in 6weeks.Her biopsy result is also pending.Dietititian was also consulted for her severe protein-calorie malnutrition and we followed their recommendations. Pulm subsequently stopped her steroids because She was no longer wheezing and Prednisone increases the risk for ulcers as well.[place] wants to see her in 1month as well.Her H/H has remained stable,her vitals are decent. She requests for a portable oxygen tank because the one she currently has is too heavy for her to carry around. A rapid response has just been called on patient so dc has been canceled. Diagnosis - Discharge Diagnosis (1) COPD exacerbation Status: Acute (2) Acute and chronic respiratory failure ([id number]) Status: Acute (3) Severe protein-calorie malnutrition Status: Acute (4) Anemia Status: Acute (5) Fungal esophagitis Status: Acute Specialty Discharge - Follow Up or Referrals Follow up with: Joel Gary MD [Physician] - 05/05/17 12:30 pm (6 week appointment bmp,cbc, chest x ray) Brien Tobias MD [Physician] - 05/12/17 10:00 am (6 weeks) Discharge Plan - Discharge Data Disposition: Home Health Service Condition at Discharge: Stable Discharge Diet: advance to your usual diet Activity: resume usual activities as tolerated - Discharge Medications No Action Gabapentin 600 mg PO TID Cyproheptadine HCl 4 mg PO TID predniSONE TAB [PredniSONE] 10 mg PO BID Citalopram [CeleXA] 40 mg PO DAILY Albuterol/Ipratropium Neb [Duoneb] 3 ml RESP TX RT Q6H PRN PRN Reason: Shortness Of Breath/Wheezing Albuterol Sulfate [Proair HFA] 2 puff INH Q4H PRN PRN Reason: Shortness Of Breath/Wheezing ALPRAZolam [Xanax] 0.5 mg PO TID Budesonide/Formoterol 160-4.5 [Symbicort 160-4.5] 2 puff INH DAILY Oxycodone HCl/Acetaminophen [Percocet 10-325 mg Tablet] 1 each PO Q6H - Follow Up or Referral Follow Up: Joel Gary MD [Physician] - 05/05/17 12:30 pm (6 week appointment bmp,cbc, chest x ray) Brien Tobias MD [Physician] - 05/12/17 10:00 am (6 weeks) - Forms/Instructions Instructions: Peptic Ulcer (DC), Gastrointestinal Bleeding (DC), Chronic Obstructive Pulmonary Disease (DC), Anemia (DC) Exam - Constitutional Vitals: Period Temp Pulse Resp BP Sys/Rodriguez Pulse Ox Last 24 Hr 97.4 F-98.9 F 20-103 17-20 100-105/64-70 93-99 General appearance: no acute distress, cachectic - Head Head exam: Present: normal inspection - Respiratory Respiratory exam: Present: clear to auscultation bilaterally - Cardiovascular Cardiovascular exam: Present: regular rate and rhythm - GI/Abdominal GI/Abdominal exam: Present: normal bowel sounds - Extremities Exam Extremities exam: Present: normal inspection - Neurological Exam Neurological exam: Present: alert, oriented X3 Discharge Results Procedures and tests throughout hospitalization: Pending Orders 03/20/17 11:15 Occult Blood, Stool Routine 03/22/17 20:40 Occult Blood, Stool Routine DS: Provider Date of admission: 03/14/17 23:22 Primary care physician: . 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 Gary Date Notified: 03/15/17 Time Notified: 07:30 03/16/17 08:47 Consult to Dietitian [CONS] Routine Reason for Dietitian: Dietary Consult Consult Comment: malnutrition 03/18/17 08:00 Consult to Physical Therapy [CONS] Routine Reason for Physical Therapy: Evaluate and Treat 03/22/17 09:27 Consult to Anesthesiology [CONS] Routine Consulting Provider: Reason for Anesthesiology: Pre-op Clearance 03/25/17 09:51 Consult to Case Mgmt/Social Srvs [CONS] Routine Reason for Case Mgmt/Social Srvs: Home Health Discharging clinician: Jami Manuel MD
[2017-03-25] MEDS ORDERED: MORPHINE 2 MG/1 ML SYRINGE ONE (11:45)
[2017-03-25] MEDS ORDERED: SODIUM CHLORIDE 0.9% 250 ML IV ONE (12:02)
[2017-03-25] MEDS ORDERED: MORPHINE 2 MG/1 ML SYRINGE IV ONE (12:03)
[2017-03-25] MEDS ORDERED: ONDANSETRON 4 MG/2 ML VIAL IV ONE (12:04)
[2017-03-25 12:13] LABS: ABG Base Excess 8.2 MMOL/L (-2.5-2.5); ABG Oxygen Saturation 97.8 % (95-100); ABG PH 7.553 (7.35-7.45); ABG PO2 86.9 MM HG (80-95); ABG TCO2 32.1 MMOL/L (23-27)
--- NOTE | 2017-03-25 12:13 | Hospitalist Progress Note ---
Assessment and Plan (1) Acute and chronic respiratory failure ([id number]) Status: Acute Assessment and plan: Patient's condition suddenly deteriorated. She is not in any obvious respiratory distress but she is hypotensive and tachycardic. It will be prudent to r/o PE though she is not impressively hypoxemic. Plan Unit transfer D-dimer-CT chest with PTE protocol Continue oxygen, ABGs Dr Gary to follow Current Visit: Yes Qualifiers: Respiratory failure complication: hypoxia and hypercapnia Qualified Code(s) : J96.21 - Acute and chronic respiratory failure with hypoxia; J96.22 - Acute and chronic respiratory failure with hypercapnia (2) Hypotension Status: Resolved Assessment and plan: with Tachycardia. R/o sepis, PE, ACS, acute blood loss Plan IVF Start Empiric IV antibiotics- Cefepime and Levaquin- double coverage for pseudomonas BC, UC SC, CXR CBC, CMP, Cardiac enzymes, CXR ABG IV diflucan-patient has history of fungal esophagitis Current Visit: No (3) Acute blood loss anemia Status: Acute Assessment and plan: due to 2.5 cm ulcer in the proximal duodenal bulb/pyloric channel Mild gastritis and some fungal esophagitis. Plan CBC stat PPIs IV diflucan Current Visit: Yes (4) Severe protein-calorie malnutrition Status: Acute Assessment and plan: Follow Dietitian's recommendations. Current Visit: Yes (5) COPD exacerbation Status: Acute Assessment and plan: Dr Gary is following.. Follow his recommendations. He recently stopped steroids due to her ulcers. Current Visit: No (6) Back pain Status: Acute Current Visit: Yes (7) Acute back pain Status: Acute Assessment and plan: Xrays of the lower back, consider CT when patient is stable. Current Visit: Yes Hospitalist: Subjective Interval history: Patient was seen this am, doing ok. While i was working on her discharge, a rapid response was called. She had complained about back pain and nausea, her blood pressure was then noted to be dropping in the 80s/60s and was tachycardic in the 150s-160s.She was moaning and graoning in pain and her sats were 100% on 02 oxygen.EKG showed sinus tachycardia. She was immediately started on IVF bolus , placed in a trendelenburg position and transferred to the unit for closer monitoring. Labs have also been be drawn. Exam - Constitutional Vitals: Period Temp Pulse Resp BP Sys/Rodriguez Pulse Ox Last 24 Hr 97.4 F-98.9 F 20-145 17-20 89-105/64-70 93-99 General appearance: no acute distress, cachectic, other (in [place] postion ) - Head Head exam: Present: normal inspection - Respiratory Respiratory exam: Present: clear to auscultation bilaterally - Cardiovascular Cardiovascular exam: Present: regular rate and rhythm - GI/Abdominal GI/Abdominal exam: Present: normal bowel sounds - Extremities Exam Extremities exam: Present: normal inspection - Neurological Exam Neurological exam: Present: alert, oriented X3 Results - Labs CBC & BMP: 03/24/17 05:14 03/24/17 05:14 Lab Results: I have reviewed the past 24 hour labs Specialty Discharge - Follow Up or Referrals Follow up with: Joel Gary MD [Physician] - 05/05/17 12:30 pm (6 week appointment bmp,cbc, chest x ray) Brien Tobias MD [Physician] - 05/12/17 10:00 am (6 weeks)
[2017-03-25 12:35] LABS: ABG Base Excess 7.2 MMOL/L (-2.5-2.5); ABG Oxygen Saturation 95.7 % (95-100); ABG PCO2 40.7 MM HG (35-48); ABG PH 7.492 (7.35-7.45); ABG PO2 71.5 MM HG (80-95); ABG TCO2 28.2 MMOL/L (23-27)
[2017-03-25] MEDS ORDERED: PHENYLEPHRINE DRIP 40 MG/250 ML PREMIX IV ONE (12:36)
[2017-03-25 12:37] LABS: Basophils % 0.1 % (0.0-0.8); Eosinophils % 0.1 % (0.00-10.9); Hematocrit 24.8 VOL% (35.7-47.0); Hemoglobin 8.3 GM/DL (12.0-16.0); Immature Granulocytes % 2.3 %; Immature Granulocytes Absolute 0.46 #; Lymphocytes # 4.7 10*3/uL (1.4-4.0); Lymphocytes % 23.3 % (21.3-54.2); Mean Corpuscular HGB Conc 33.5 GM/DL (32-36); Mean Corpuscular Hemoglobin 31 PG (27-34); Mean Corpuscular Volume 93.9 FL (87-102); Mean Platelet Volume 9.1 FL (9.6-12.0); Monocytes # 1.2 10*3/uL (0.11-0.8); Monocytes % 6.1 % (1.7-12.7); Neutrophils # 13.8 10*3/uL (1.4-7.4); Neutrophils % 68.1 % (38.7-73.9); Platelet Count 335 T/CUMM (130-400); Red Blood Count 2.64 MC/CUMM (3.8-5.5); Red Cell Distribution Width 17.8 % (9.3-17.3); White Blood Count 20.3 T/CUMM (4-12)
--- NOTE | 2017-03-25 12:46 | EKG Report ---
Stationary ECG Study [facility] Test Date: 03/25/2017 11:50:26 AM Pat Name: PILY DOWNING Department: Room: 130 Gender: F Ccnp: MAIA : 1960 Requested by: Jami Manuel Order Number: [id number] Reading MD: BREE MEREDITH Intervals [place] Rate: 150 P: 83 TN: 112 QRS: 90 QRSD: 82 T: 84 QT: 263 QTc: 349 Interpretive Statements SINUS TACHYCARDIA WITH SHORT TN INTERVAL MODERATE ST DEPRESSION POOR QUALITY BASELINE Electronically Signed On 03-26-17 16:46:02 CDT by BREE MEREDITH [email or web address]
[2017-03-25] MEDS: SODIUM CHLORIDE 0.9% 1,000 ML IV SCH (13:09)
[2017-03-25 13:11] LABS: Alanine Aminotransferase 23 U/L (13-56); Albumin 2.3 G/DL (3.4-5.0); Alkaline Phosphatase 74 U/L (45-117); Aspartate Amino Transferase 16 U/L (0-37); Blood Urea Nitrogen 21 MG/DL (7-18); Calcium 8.1 MG/DL (8.5-10.1); Glucose 96 MG/DL (74-106); Osmolality,Calculated 281.4 MOS/KG (273-304); Potassium 4.7 MMOL/L (3.5-5.1); Sodium 140 MMOL/L (136-145); Total Protein 4.6 G/DL (6.4-8.3); Troponin I Only < 0.015 NG/ML (0.00-0.045)
[2017-03-25] MEDS: LEVOFLOXACIN INJ 500 MG in PREMIX 1 EACH IV SCH (13:24)
[2017-03-25 14:32] LABS: Lymphocytes 16 % (20-55); Metamyelocytes 1 %; Segmented Neutrophils 79 % (50-85); Total Cells Counted 100
[2017-03-25 14:33] LABS: Hypochromasia Slight; Platelet Estimate Normal; Polychromasia Few
--- NOTE | 2017-03-25 14:45 | XRay Report ---
XR chest 1V portable Indication: Hypotension and tachycardia. Chest one view: Comparison 03/17/2017. Spinal fixation hardware, normal heart size and mediastinal contour are stable. Lungs are now clear. Patient has been extubated and NG tube removed. Defibrillator pad is now in the [id number]. Impression: No acute cardiopulmonary disease with improved aeration of the lungs following extubation. PROCEDURE INTERPRETED AT [facility] DEPARTMENT OF RADIOLOGY Final Report Signed by: Min Herr M.D.
--- NOTE | 2017-03-25 14:46 | XRay Report ---
XR KUB Indication: Back pain. Abdomen one view: Spinal fixation hardware and multiple surgical clips as well as right MARKUS noted. The entire lumbar spine is fused en bloc. Vascular calcinosis is present. No small bowel dilatation. Some stool and gas seen in the colon. No suggestion of free air. Impression: Unremarkable bowel gas pattern. Additional findings as described. PROCEDURE INTERPRETED AT [facility] DEPARTMENT OF RADIOLOGY Final Report Signed by: Min Herr M.D.
[2017-03-25] MEDS ORDERED: SODIUM CHLORIDE 0.9% 250 ML IV PRN (14:49)
[2017-03-25] MEDS ORDERED: LIDOCAINE 2% 5 ML VIAL ONE (15:10)
[2017-03-25] MEDS ORDERED: PROPOFOL 200 MG/20 ML VIAL IV ONE (15:10)
[2017-03-25] MEDS ORDERED: KETAMINE 500 MG/10 ML VIAL ONE (15:41)
[2017-03-25] MEDS ORDERED: EPINEPHrine 1 MG/ML VIAL ONE (15:44)
--- NOTE | 2017-03-25 15:46 | Operative Note ---
Date of procedure: 03/25/17 Pre-op diagnosis: Hypotension on pressors, acute GI bleeding, duodenal ulcer Post-op diagnosis: other Procedure: PROCEDURE: Esophagogastroduodenoscopy (EGD) with epinephrine injection for hemostasis REFERRING PHYSICIAN: Lynette Daniel MD INDICATIONS: Epigastric pain, decrease in hematocrit from 29% to 24% with hypotension and need for pressors, increase in heart rate to 160 now status post 1 unit transfusion, nausea, increasing black stool this morning all very suspicious for the previously noted duodenal ulcer yesterday opening up and bleeding. ENDOSCOPIST: Brien Tobias MD ENDOSCOPE: Olympus Video 100 System upper endoscope ASA CLASS: 4E EXAM: CV: regular rate and rhythm respiratory: Clear without wheezes abdominal: active bowel sounds MEDICATION: Per nursing anesthesia protocol, see their notes PROCEDURE: After discussion of the potential risks and benefits of upper endoscopy, the informed consent was obtained. The patient was then placed in the left lateral decubitus position where sedation was achieved as noted above. Esophageal intubation was performed without difficulty, and the endoscope was advanced through the esophagus, stomach and duodenum. A slow withdrawal was then performed with retroflexion in the stomach for careful inspection of the incisura angularis, fundus and cardia. The scope was then returned to a neutral position and withdrawn through the esophagus. The patient tolerated the procedure well and without complication. BIOPSIES: None obtained PHOTOGRAPHS: Obtained FINDINGS: Hypopharynx and Larynx: Gross evidence of fungal elements Esohagoscopy Upper and middle thirds: Apparent fungal esophagitis, improving Lower third apparent fungal esophagitis mixed with reflux esophagitis, improving Esophogastric junctions: Fungal esophagitis mixed with reflux esophagitis improved with Schatzki's ring noted Gastroscopy: Cardia/Fundus: 2 cm hiatal hernia noted, some retained food in the copious amount of reflux blood Body: Mild patchy gastritis, large amount of fresh appearing blood Antrum and pylorus mild patchy gastritis, large amount of fresh appearing blood Duodenoscopy: Bulb just inside the pyloric channel there is a sizable 2.5 cm ulcer with visible vessel noted now, this was injected in 4 quadrants with 4 mL of 1: 10,000 epinephrine with adequate hemostasis noted at the end of the case. Second and third portions: Normal, aside from blood passing through this area IMPRESSION: Large duodenal/pyloric channel ulcer 2.5 cm in size now with visible vessel that was injected in 4 quadrants with 4 mL of 1:10,000 epinephrine. Mild gastritis there was patchy noted in the stomach not thought to be the source the patient's bleeding, fungal appearing esophagitis with some reflux esophagitis elements as well. RECOMMENDATIONS: Observe the patient in the CCU with a clear liquid diet If she begins to have obvious hematemesis and bleeding, we probably needs to take her to a tagged red blood cell scan to be followed by angiography if appropriate. There is not much else that can be done endoscopically given the position of his large vessel just inside the pyloric channel. Continue anti-gastroesophageal reflux measures (avoid carbonated and acidic beverages, avoid eating within 2 hours of bedtime, avoid tight fitting clothing , and elevate the front bed posts 6 inches prior to sleeping). Fluconazole 100 mg p.o. daily 10 days Protonix 40 mg IV twice daily Anesthesia: MAC Surgeon / Physician: Brien Tobias Estimated blood loss: minimal Specimens: none sent Condition: critical Disposition: ICU Results - Labs CBC & BMP: 03/25/17 12:35 03/25/17 12:30 Discharge Plan - Discharge Data Disposition: Home Health Service - Discharge Medications No Action Gabapentin 600 mg PO TID Cyproheptadine HCl 4 mg PO TID predniSONE TAB [PredniSONE] 10 mg PO BID Citalopram [CeleXA] 40 mg PO DAILY Albuterol/Ipratropium Neb [Duoneb] 3 ml RESP TX RT Q6H PRN PRN Reason: Shortness Of Breath/Wheezing Albuterol Sulfate [Proair HFA] 2 puff INH Q4H PRN PRN Reason: Shortness Of Breath/Wheezing ALPRAZolam [Xanax] 0.5 mg PO TID Budesonide/Formoterol 160-4.5 [Symbicort 160-4.5] 2 puff INH DAILY Oxycodone HCl/Acetaminophen [Percocet 10-325 mg Tablet] 1 each PO Q6H - Follow Up or Referral Follow Up: Joel Gary MD [Physician] - 05/05/17 12:30 pm (6 week appointment bmp,cbc, chest x ray) Brien Tobias MD [Physician] - 05/12/17 10:00 am (6 weeks) - Forms/Instructions Instructions: Peptic Ulcer (DC), Gastrointestinal Bleeding (DC), Chronic Obstructive Pulmonary Disease (DC), Anemia (DC)
[2017-03-25] MEDS: FLUCONAZOLE INJ 100 MG in IV BAG 1 EACH IV SCH (15:52)
--- NOTE | 2017-03-25 16:02 | Anesthesia Post-Op ---
Anesthesia Post OP - Post Ansesthetic Evaluation Patient seen in post op: Yes Resp: within normal limits CV: within normal limits Mental: within normal limits Temp: within normal limits [id number]: within normal limits Nausea and Vomiting: within normal limits Pain: within normal limits
[2017-03-25] MEDS: HYDROmorphone 2 MG/1 ML VIAL IV PRN ×2 (16:30→21:48)
[2017-03-25] MEDS: CEFEPIME 500 MG in SODIUM CHLORIDE 0.9% 100 ML IV SCH (16:39)
[2017-03-25] MEDS: FUROSEMIDE 20 MG/2 ML VIAL IV PRN ×2 (17:01→20:09)
[2017-03-25] MEDS: PANTOPRAZOLE 40 MG VIAL IV SCH (21:29)
[2017-03-25] MEDS: PHENYLEPHRINE DRIP 40 MG/250 ML PREMIX IV SCH (21:37)
[2017-03-26] MEDS: IPRATROPIUM 500 MCG/2.5 ML NEB RESP TX SCH ×2 (00:05→07:14)
[2017-03-26] MEDS: ONDANSETRON 4 MG/2 ML VIAL IV PRN ×3 (00:08→16:10)
[2017-03-26 00:59] LABS: Basophils % 0.1 % (0.0-0.8); Eosinophils % 0.1 % (0.00-10.9); Hematocrit 25.1 VOL% (35.7-47.0); Hemoglobin 8.5 GM/DL (12.0-16.0); Immature Granulocytes % 2.5 %; Lymphocytes # 1.5 10*3/uL (1.4-4.0); Lymphocytes % 12.5 % (21.3-54.2); Mean Corpuscular HGB Conc 33.9 GM/DL (32-36); Mean Corpuscular Hemoglobin 31 PG (27-34); Mean Corpuscular Volume 90.6 FL (87-102); Monocytes # 0.7 10*3/uL (0.11-0.8); Monocytes % 5.8 % (1.7-12.7); Neutrophils # 9.3 10*3/uL (1.4-7.4); Platelet Count 198 T/CUMM (130-400); Red Blood Count 2.77 MC/CUMM (3.8-5.5); Red Cell Distribution Width 16.6 % (9.3-17.3); White Blood Count 11.8 T/CUMM (4-12)
[2017-03-26] MEDS: PHENYLEPHRINE DRIP 40 MG/250 ML PREMIX IV SCH ×3 (01:06→20:14)
[2017-03-26] MEDS ORDERED: SODIUM CHLORIDE 0.9% 250 ML IV PRN (01:20)
[2017-03-26 01:22] LABS: Calcium 7.3 MG/DL (8.5-10.1); Osmolality,Calculated 281.5 MOS/KG (273-304); Potassium 3.9 MMOL/L (3.5-5.1)
[2017-03-26] MEDS: HYDROmorphone 2 MG/1 ML VIAL IV PRN ×5 (02:25→20:19)
[2017-03-26] MEDS: CEFEPIME 500 MG in SODIUM CHLORIDE 0.9% 100 ML IV SCH (03:34)
[2017-03-26] MEDS ORDERED: FUROSEMIDE 20 MG/2 ML VIAL ONE (06:23)
--- NOTE | 2017-03-26 06:26 | Gastrointestinal Progress Note ---
Assessment and Plan (1) Duodenal ulcer with hemorrhage Status: Acute Assessment and plan: This proved to be the patient's source for bleeding, this was a sizable 2.5 cm ulcer just past the pyloric channel in the proximal duodenum. This did have a pigmented spot indicative of potential bleeding vessel. Margins were biopsied, biopsies were taken the gastric antrum and body to look for Helicobacter pylori , this may be NSAID induced. She did not appear to be actively bleeding. Agree with Protonix twice daily and await biopsy results. If the patient is able to eat we can contact her with these biopsies when they become available. 03/25/17--Biopsies are pending but I doubt this will be a malignancy. Patient will need to avoid NSAIDs for the next month while this is healing up. Her hematocrit appears to be stable. She has a prescription for the Protonix twice daily as well as fluconazole for her fungal esophagitis. She is stable enough to be able to be discharged in my opinion at this time. The GI workup is complete I will sign off at this time, but will call the patient when the biopsies become available if they are not available at the time of discharge. 03/26/17--the patient is gotten 1 of the 2 units written for yesterday. She is still requiring low doses of pressors. We will need to get a tagged red blood cell scan to see if she continues to bleed and if still bleeding she will need arteriography to embolize either the branch of the gastroduodenal artery versus the superior pancreaticoduodenal artery branch. Unfortunately I do not believe that this lesion is going to be amenable to endoscopic treatment. I can tell this is quite a large vessel we are dealing with and the positioning is not optimal for placement of endoclip. Surgery may also become necessary as well for resection of the duodenal bulb if embolization is inadequate. Current Visit: Yes (2) Gastrointestinal hemorrhage with melena Status: Acute Assessment and plan: This patient has a combination of severe epigastric pain and dark stools that have been on and off for several weeks and also has a history of gastric ulcer some 20 years ago. She certainly could have recurrence of this which has been worsened during this admission by exposure to Lovenox. There is certainly guaiac positive stool and physical examination and I strongly suspect there may be gastric ulcers, erosions but cannot rule out gastric cancer or AVMs in this setting. We will perform upper endoscopy and given the fact the patient has not had colorectal cancer screening in many years will likely add on a colonoscopy seeing is her medical rate is dropped down to 20% during this admission. She could potentially be discharged on Friday if no cancer no active bleeding or discovered. Seeing as she is eating at this point I am going to advance her to oral Protonix twice daily to suppress the acidity in her stomach. This should help out with pain and potential ulcer disease we will check for Helicobacter pylori during upper endoscopy. She does not know if she has a history of polyps. The patient understands the risks of the procedure include but are not limited to: Bleeding, infection, perforation, cardiac and pulmonary compromise. 03/23/17--this patient may have a recurrence of her gastric ulcer, there may be gastritis or other cause for her anemia. Given the dark stools a suspect probably the former. She is due to undergo colonoscopy before she leaves at the same time, due to the extremely low hematocrit. It is many as 10% of cases with iron deficiency anemia there are 2 sources causing the problem. She may be able to be discharged after the upper and lower endoscopies tomorrow. 03/24/17--the patient's colonoscopy was essentially normal where is the upper endoscopy showed a 2.5 cm in the proximal duodenal bulb/pyloric channel which appeared to be the source the patient's bleeding. Mild gastritis and some fungal esophagitis were also noticed incidentally. Will start patient on fluconazole in addition to the twice daily pantoprazole. If her hematocrit remains stable she is certainly welcome to be followed up in the clinic. I have written her prescription which I have paperclip to the front of the chart for use as an outpatient. Fungal esophagitis will require 10 days worth of the fluconazole. This as well as the ulcer thought to be the source the patient's anorexia/pain. 03/25/17--The patient is doing well with only minimal epigastric tenderness. Her appetite is picking up already. She has prescriptions written for the Protonix and fluconazole and her chart. She is safe for discharge in my opinion today. I would like her to follow-up with me in 6 weeks, so I can check her weight and hematocrit at that time. If biopsies are not back this afternoon by the time she is discharged certainly would not hold her here awaiting these results. I will contact her when these become available. 03/26/17--We will continue to watch her on clear liquids for the present time. Observe in the ICU until we can establish her stability before sending her upstairs again. Agree with switching over her medications to IV to ensure these are not loss with emesis. Current Visit: Yes (3) Generalized abdominal pain Status: Acute Assessment and plan: Most of the pains for this patient are in the epigastric region which would tend to point towards peptic ulcer disease or erosive disease. Some of the pain is in the bilateral lower quadrants and I suspect this may be due to constipation induced irritation. Physical examination she does have hard stools , we cannot rule out a lower GI bleeding source and so we will add a colonoscopy as previously mentioned to the upper endoscopy also to be done on 03/24/17. 03/23/17--The abdominal pain has resolved completely at this point. We will continue to observe. 03/24/17--the colonoscopy demonstrated some fairly severe left-sided diverticulosis but no evidence of diverticulitis or mass or polyp. Generalized abdominal pain may be associated with constipation/IBS. 03/25/17--Overall this pain appears improved. Continue low level laxatives with MiraLAX as needed for the underlying constipation. 03/26/17--I doubt that we will need any laxatives as blood is wonderful cathartic. Observe for now. Fortunately her white blood cell count is come back to its previous range. I do not believe there was a perforation. Current Visit: Yes (4) Severe protein-calorie malnutrition Status: Acute Assessment and plan: Not sure that I would call her malnutrition severe she does have an albumin of 2.3 and she does have poor p.o. intake. We will check and make sure she does not have colon cancer and I suspect that is her gastritis is treated she will improve as far as her appetite. She needs to steer clear of NSAIDs for the future if at all possible. Again Protonix 40 mg twice daily has been initiated to help out with the underlying inflammation in the stomach. Steroids have to be continued for the present time because of her underlying COPD. 03/23/17--This is another reason colonoscopy is being done to look for a cause for the patient's malnutrition. Upper endoscopy could certainly result in decreased appetite which could have a negative impact on her p.o. intake as well. EGD and colonoscopy tomorrow planned. 03/24/17--I believe this is probably a consequence of the ulcer and reflux/ fungal esophagitis. We will continue to observe as these are treated appropriately. We will see how she does with a diet in-house. 03/25/17--The patient was again advised to drink 4 ounces of water after taking her inhaled steroid doses in order to cut back on the fungal esophagitis in the future. Will follow her up to see if her weight is improved by the time she comes back into the office in 6 weeks. Thank you for the opportunity see this very pleasant lady, will be signing off at this time. 03/26/17--We may start boost or Ensure supplements tomorrow once we ensure the patient does not need to go to surgery. Current Visit: Yes Gastroenterology - PN: Subj Interval history: The patient experienced a setback yesterday after having undergone both EGD and colonoscopy the day before on 03/24/17. The original upper endoscopy demonstrated a large ulcer in the patient's duodenum including a pigmented spot. After resumption of food unfortunately patient developed hypotension, increasing melena, need for pressors, and tachycardia all of which indicated to me that she may have opened up her bleeding site in her duodenum. The performed emergency upper endoscopy yesterday afternoon which did show a great deal of blood in her stomach and duodenum but no active bleeding from the duodenal ulcer which now had developed a visible vessel with a pigmented spot had previously been. I am 95% sure this is where the bleeding was coming from. We injected in a [place] around this with epinephrine 4-5 mL of a 1:10,000 concentration. Good hemostasis was noted at the end of the procedure. The visible vessel was not in a position that it could not be easily endoclipped. Over the evening the patient's hematocrit is increased from 24.8% all the way up to 25.1 after unit of blood. A second unit of blood is being given at this time. Patient is still requiring low doses of pressors, I anticipate this can be weaned off when she gets a second unit. Exam (Progress Note) - Constitutional Vitals: Period Temp Pulse Resp BP Sys/Rodriguez Pulse Ox Last 24 Hr 96.6 F-98.6 F 20-155 13-32 77-126/47-80 91-100 General appearance: mild distress - Eye Eye exam: Present: EOMI Pupils: Present: ALECIA - Respiratory Respiratory exam: Present: clear to auscultation bilaterally. Absent: rhonchi, stridor, wheezes - Cardiovascular Cardiovascular exam: Present: regular rate and rhythm - GI/Abdominal GI/Abdominal exam: Present: normal bowel sounds, tenderness (Epigastric tenderness), soft. Absent: rebound - Extremities Exam Extremities exam: Present: normal inspection - Neurological Exam Neurological exam: Present: alert, oriented X3. Absent: altered - Psychiatric Psychiatric exam: Present: normal affect, normal mood - Skin Skin exam: Present: warm Results - Labs CBC & BMP: 03/26/17 00:38 03/26/17 00:39 Specialty Discharge - Follow Up or Referrals Follow up with: Joel Gary MD [Physician] - 05/05/17 12:30 pm (6 week appointment bmp,cbc, chest x ray) Brien Tobias MD [Physician] - 05/12/17 10:00 am (6 weeks)
[2017-03-26] MEDS: FUROSEMIDE 20 MG/2 ML VIAL IV PRN ×2 (06:28→10:58)
--- NOTE | 2017-03-26 07:33 | Pulmonology Progress Note ---
Pulmonary - PN: Subj Interval history: This 56-year-old white female has severe COPD. She is on home oxygen. An acute exacerbation over week that got worse. Was intubated and admitted yesterday. This morning she is much more alert. ABGs much improved. We will start CPAP and see if we can get her extubated. 03/17/2017 patient did well with CPAP yesterday. PCO2 is now down to normal. Will try to get her extubated this morning 03/18/2017 patient was extubated yesterday without difficulty. She is taking clear liquids for supper. She has some mild nausea this morning otherwise feeling better. She has grown Klebsiella and Pseudomonas from bronchial washings. She is well covered with cefepime and Levaquin. She could go to the floor today. Theophylline level is low. Stopping Aminophyllin. Continuing Daliresp. Need to watch that because it can cause some nausea. 03/19/2017 patient now on 5 E. She is coughing a good bit and short of breath with effort but is better. She is alert and I think we can start reducing her medications. Probably still needs IV meds another day or 2. 03/20/2017 patient is feeling a little better. Still having a good bit of coughing. I do think she needs IV medication for at least another 1-2 days from now 03/21/2017 patient feeling much better but her hematocrit has dropped to 20. She has a history of anemia requiring blood transfusions following surgery in the past. She does not know the cause of the anemia. I have ordered anemia profile. She is to get blood today. She may need a GI endoscopy set up if stools are positive. Her COPD is improved. I have decreased her steroids. Probably could change to oral medications in another day or so. 03/24/2017 patient is much better. She has been transfused and her hematocrit is around 30. She is set up for EGD and colonoscopy today. She does have severe COPD and has recently been mechanically ventilated. Will need close watch by anesthesia during procedure. 03/25/2017 GI evaluation has indicated a 2.5 cm duodenal ulcer. This is likely to be the cause of her blood loss. She is now on Protonix twice a day. Will need follow-up CBCs. I have advised her to watch her stools for signs of blood mainly melena. I will see her back in a month or so for her COPD and we can check a CBC at that time. I did stop her prednisone. She is not wheezing. Prednisone increases the risk for ulcers as well. 03/26/2017 patient was bleeding yesterday. Taken back to endoscopy lab and had the ulcer injected with epinephrine. It appears that she still may be bleeding. She is on her second unit of blood. Dr. Tobias is managing this. Patient may require surgery. Her COPD appears to be stable at present. Exam (Progress Note) - Constitutional Vitals: Period Temp Pulse Resp BP Sys/Rodriguez Pulse Ox Last 24 Hr 96.6 F-98.9 F 64-155 13-32 77-126/38-80 91-100 Exam: Patient's alert and responsive. Seems oriented. Wearing nasal oxygen. Vital signs are normal. Pupils react to light. Neck is supple. Chest reveals prolonged expiratory phase but I do not hear any wheezing today. Heart normal rate rhythm no murmurs. Abdomen soft nontender no masses. Bowel sounds present. Extremities no clubbing cyanosis edema. Results - Labs CBC & BMP: 03/26/17 00:38 03/26/17 00:39 Lab Results: I have reviewed the past 24 hour labs Assessment and Plan (1) Acute and chronic respiratory failure ([id number]) Status: Acute Assessment and plan: She has been on oxygen. Her PCO2 runs around 60 when she is at her baseline. It was up to 80. She may be difficult to wean. 03/16/2017 ABGs improved. PCO2 down to 44. Needs a little Diamox. Reduce FiO2. Start weaning today. May be able to get her extubated today but probably will take another day. 03/17/2017 PCO2 down to normal. Should be able to extubate today. 03/18/2017 patient has done well postextubation. Continuing low flow oxygen. 03/19/2017 Will reduce Solu-Medrol a little. Still needs oxygen. 03/20/2017 patient is off the ventilator. Still requiring oxygen. She had both hypercarbic and hypoxemic acute on chronic respiratory failure. They are improved 03/21/2017 patient doing well off the ventilator. She is on nasal oxygen. The severe anemia is aggravating things. She has oxygen at home but has asked for a different set up. Social work is looking into that. If she is discharged this weekend I could see her in the clinic in about 2 weeks for follow-up. 03/24/2017 she is over the acute episode of respiratory failure. Still requiring some nasal oxygen. She does tend to retain carbon dioxide with sedation. 03/25/2017 acute respiratory failure is resolved. 03/26/2017 she is not in respiratory failure at present. However if she does have surgery for the GI bleeding she likely will need mechanical ventilation for a couple of days postop. Current Visit: Yes Qualifiers: Respiratory failure complication: hypoxia and hypercapnia Qualified Code(s) : J96.21 - Acute and chronic respiratory failure with hypoxia; J96.22 - Acute and chronic respiratory failure with hypercapnia (2) Severe protein-calorie malnutrition Status: Acute Assessment and plan: We will need NG tube feedings 03/16/2017 continuing NG feeding 03/17/2017 continuing management per NG tube. 03/18/2017 progress diet orally. 03/19/2017 progressing with diet. 03/20/2017 patient eating a little better. 03/21/2017 appetite is better. 03/25/2017 she is eating better. Certainly an ulcer might have been a part of the cause for this. 03/26/2017 nutrition is being held up by her ulcer. Current Visit: Yes (3) COPD exacerbation Status: Acute Assessment and plan: Bronchodilator steroids and empiric antibiotics. Since she has severe COPD would go with Levaquin plus cefepime. 03/16/2017 continuing intravenous corticosteroids and antibiotics. Broad- spectrum due to her COPD. Continuing bronchodilators. 03/17/2017 no active bronchospasm. Continue current medications. 03/18/2017 bronchospasm improving. Reduce steroids. We have also added Daliresp for long-term treatment. Watch for nausea. 03/19/2017 reduce steroids today. Probably needs another day or 2 of IV medications. 03/20/2017 still having exacerbation. Keep on IV steroids for now as well as IV antibiotics. 03/21/2017 have reduce steroids a little. Could go to oral medications tomorrow. 03/24/2017 tapering steroids. About ready for discharge from pulmonary standpoint. Will need to be watched overnight after scopes. 03/25/2017 she is doing much better. Antibiotics and prednisone can be stopped. She had Flor esophagitis and does need Diflucan for a few more days. 03/26/2017 she is about at her baseline status for as the COPD is concerned. Current Visit: No Specialty Discharge - Follow Up or Referrals Follow up with: Joel Gary MD [Physician] - 05/05/17 12:30 pm (6 week appointment bmp,cbc, chest x ray) Brien Tobias MD [Physician] - 05/12/17 10:00 am (6 weeks)
--- NOTE | 2017-03-26 08:40 | General Surgery Consult Note ---
Assessment and Plan - Time spent with patient Time spent with patient: Greater than 30 minutes (1) Gastrointestinal hemorrhage with melena Status: Acute Assessment and plan: I discussed this case in detail with Dr. Daniel and also discussed this with Dr. Yeung from interventional radiology. She remains mildly hypotensive requiring pressors and I would favor going on straight to interventional radiology in looking at intervening. She is a poor surgical candidate because of her COPD on home oxygen. Hopefully we can identify a bleeding vessel to embolize and it might be worth embolizing her gastroduodenal artery was selectively it is not bleeding. I did discuss this with Dr. Yeung and we will get her back there today. I discussed the possibility of surgery with the patient if intervention radio Glock graphically is not successful. She understands that surgery will be high risk. Current Visit: Yes (2) COPD exacerbation Status: Acute Assessment and plan: This will increase her risk of perioperative complications if surgery is necessary Current Visit: No History of Present Illness Chief complaint: Bleeding ulcer History of present illness: Ms. Morris is a 57 year old female Admitted with upper GI bleeding. She has had a couple of upper endoscopies and has had a large visible vessel in a proximal duodenal ulcer. She received more blood transfusion last night after she had repeat upper endoscopy last night. She is requiring low-dose pressors. She is not having hematemesis. She has vague mild to moderate epigastric pain. She has not had mental status changes. She has taken NSAIDs for chronic back and hip pain. Home Medications Medication Instructions Recorded Confirmed Type ALPRAZolam [Xanax] 0.5 mg PO TID 03/14/17 03/14/17 History Albuterol Sulfate [Proair HFA] 2 puff INH Q4H PRN 03/14/17 03/14/17 History Albuterol/Ipratropium Neb [Duoneb] 3 ml RESP TX RT Q6H PRN 03/14/17 03/14/17 History Budesonide/Formoterol 160-4.5 2 puff INH DAILY 03/14/17 03/14/17 History [Symbicort 160-4.5] Citalopram [CeleXA] 40 mg PO DAILY 03/14/17 03/14/17 History Cyproheptadine HCl 4 mg PO TID 06/09/17 06/09/17 History Gabapentin 600 mg PO TID 03/14/17 03/14/17 History Oxycodone HCl/Acetaminophen 1 each PO Q6H 03/14/17 03/14/17 History [Percocet 10-325 mg Tablet] predniSONE TAB [PredniSONE] 10 mg PO BID 03/14/17 03/14/17 History Allergies Allergy/AdvReac Type Severity Reaction Status Date / Time Amoxicillin Allergy Severe BLISTER Verified 07/17/15 05:29 Medical,Surgical,& Family Hx - Medical History Cardio: History of: Hypertension Neurology: No history of: Seizures Respiratory: History of: Asthma, COPD (on home O2), Pneumonia Musculoskeletal: History of: Musculoskeletal Problems Hematology: History of: Anemia - Surgical History Cardiac Surgeries: Sugical HX of: Cardiac Catheterization Abdominal Surgeries: Surgical HX of: Abdominal Surgery, Appendectomy, Cholecystectomy Reproductive Surgeries: Surgical HX of;: Section, Tubal Ligation Orthopedic Surgeries: Surgical HX of;: Orthopedic Surgery (ORIF-right hip, ACL- both knees, arm and elbow, back surgery x3) - Family History Family History: Reports;: Family Hypertension - Social History Smoking Status: Former smoker Frequency of Alcohol Use: None Type of Drug Use: None - Constitutional Constitutional: Absent: chills, fever(s), weight loss - EENT Nose, mouth and throat: Absent: dysphagia - Cardiovascular Cardiovascular: Absent: chest pain at rest, chest pain with activity, dyspnea, dyspnea on exertion, syncope - Respiratory Respiratory: Absent: cough, dyspnea, hemoptysis, dyspnea on exertion - Gastrointestinal Gastrointestinal: Present: abdominal pain, hematochezia, melena. Absent: coffee ground emesis, hematemesis, nausea, vomiting, jaundice - Genitourinary Genitourinary: Absent: hematuria - Musculoskeletal Musculoskeletal: Present: back pain - Neurological Neurological: Absent: focal weakness, syncope - Endocrine Endocrine: Absent: polyuria Hematologic/Lymphatic: Absent: easy bleeding, easy bruising Exam - Constitutional Vitals: Period Temp Pulse Resp BP Sys/Rodriguez Pulse Ox Last 24 Hr 96.6 F-98.9 F 64-155 13-32 77-126/38-80 91-100 General appearance: no acute distress - Head Head exam: Present: normocephalic - Eye Eye exam: Absent: scleral icterus - ENT Mouth exam: Present: normal voice - Neck Neck exam: Present: trachea midline - Respiratory Respiratory exam: Present: clear to auscultation bilaterally. Absent: accessory muscle use - Cardiovascular Cardiovascular exam: Present: RRR - GI/Abdominal GI/Abdominal exam: Present: soft. Absent: distended, guarding, tenderness, rebound - Neurological Exam Neurological exam: Present: alert, oriented X3. Absent: motor sensory deficit Speech: Present: normal - Skin Skin exam: Present: normal color Results - Labs CBC & BMP: 03/26/17 00:38 03/26/17 00:39 Lab Results: I have reviewed the past 24 hour labs Specialty Discharge - Follow Up or Referrals Follow up with: Joel Gary MD [Physician] - 05/05/17 12:30 pm (6 week appointment bmp,cbc, chest x ray) Brien Tobias MD [Physician] - 05/12/17 10:00 am (6 weeks)
[2017-03-26] MEDS: PANTOPRAZOLE 40 MG VIAL IV SCH ×2 (10:55→20:18)
[2017-03-26] MEDS: CITALOPRAM 40 MG TABLET PO SCH (10:56)
[2017-03-26] MEDS: ROFLUMILAST 500 MCG TABLET PO SCH (10:56)
[2017-03-26] MEDS: GABAPENTIN 300 MG CAPSULE PO SCH ×3 (10:56→20:18)
[2017-03-26] MEDS: NYSTATIN 500,000 UNIT/5 ML UDCUP SWISH/SWAL SCH ×4 (10:57→20:17)
[2017-03-26] MEDS: DESITIN 4OZ/NYSTATIN 15 GRAM MIXTURE PASTE TOP SCH ×2 (10:58→20:18)
[2017-03-26] MEDS: SODIUM CHLORIDE 0.9% 1,000 ML IV SCH (11:00)
[2017-03-26] MEDS ORDERED: HEPARIN/NACL 0.9% 2 UNITS/ML 3,000 ML IV ONE (11:51)
[2017-03-26] MEDS ORDERED: fentaNYL 100 MCG/2 ML VIAL IV ONE (12:51)
[2017-03-26] MEDS ORDERED: MIDAZOLAM 2 MG/2 ML VIAL IV ONE (12:51)
[2017-03-26] MEDS ORDERED: DIAZEPAM 5 MG TABLET PO ONE (12:51)
[2017-03-26 13:01] LABS: Hematocrit 38.2 VOL% (35.7-47.0); Hemoglobin 13.4 GM/DL (12.0-16.0)
--- NOTE | 2017-03-26 13:25 | Inventional Radiology Consult ---
Assessment and Plan - Time spent with patient Time spent with patient: Less than 30 minutes (1) Duodenal ulcer with hemorrhage Problem details: seen and injected on endo but not able to be adequately controlled Status: Acute Assessment and plan: Not a great surgical candidate due to pulmonary status but surgery aware if needed. Will plan for angio and embolization of the GDA. Current Visit: Yes IR Consult - Data of Consult Patient: new to practice Consult date: 03/26/17 Requesting Physician: Sánchez Mcwilliams III. - Consult Narrative Reason for consult: upper GI bleeding, duodenal ulcer on Endoscopy History of present illness: Arturo is a 57 year old F Admitted with gastrointestinal hemorrhage and melanoma. She has had 2 different endoscopic evaluations during this admission with visualization of a 2.5 cm duodenal ulcer. After biopsy she apparently had repeat significant melanoma and repeat endoscopic evaluation suggests a moderate amount of blood within the stomach and duodenum but no active bleeding from the large duodenal ulcer. This apparently is not in a good location to be controlled from an endoscopic approach. Patient has however maintained her hematocrit level overnight currently 8.5/25. Patient is otherwise relatively stable with some blood pressure support with systolics in the 90s to low 120s. No shortness of breath. History of COPD exacerbation which is currently being monitored/managed by pulmonology. - Home Medications and Allergies Home Medications: Home Medications Medication Instructions Recorded Confirmed Type ALPRAZolam [Xanax] 0.5 mg PO TID 03/14/17 03/14/17 History Albuterol Sulfate [Proair HFA] 2 puff INH Q4H PRN 03/14/17 03/14/17 History Albuterol/Ipratropium Neb [Duoneb] 3 ml RESP TX RT Q6H PRN 03/14/17 03/14/17 History Budesonide/Formoterol 160-4.5 2 puff INH DAILY 03/14/17 03/14/17 History [Symbicort 160-4.5] Citalopram [CeleXA] 40 mg PO DAILY 03/14/17 03/14/17 History Cyproheptadine HCl 4 mg PO TID 03/14/17 03/14/17 History Gabapentin 600 mg PO TID 03/14/17 03/14/17 History Oxycodone HCl/Acetaminophen 1 each PO Q6H 03/14/17 03/14/17 History [Percocet 10-325 mg Tablet] predniSONE TAB [PredniSONE] 10 mg PO BID 03/14/17 03/14/17 History Allergies/Adverse Reactions: Allergies Allergy/AdvReac Type Severity Reaction Status Date / Time Amoxicillin Allergy Severe BLISTER Verified 07/17/15 05:29 12 point system: reviewed and no additional remarkable complaints except as stated Medical,Surgical,& Family Hx - Medical History Cardio: History of: Hypertension Neurology: No history of: Seizures Respiratory: History of: Asthma, COPD (on home O2), Pneumonia Musculoskeletal: History of: Musculoskeletal Problems Hematology: History of: Anemia - Surgical History Cardiac Surgeries: Sugical HX of: Cardiac Catheterization Abdominal Surgeries: Surgical HX of: Abdominal Surgery, Appendectomy, Cholecystectomy Reproductive Surgeries: Surgical HX of;: Section, Tubal Ligation Orthopedic Surgeries: Surgical HX of;: Orthopedic Surgery (ORIF-right hip, ACL- both knees, arm and elbow, back surgery x3) - Family History Family History: Reports;: Family Hypertension - Social History Smoking Status: Former smoker Frequency of Alcohol Use: None Type of Drug Use: None Exam - Labs CBC & BMP: 03/26/17 12:47 03/26/17 00:39 Lab Results: I have reviewed the past 24 hour labs - Constitutional Vitals: Period Temp Pulse Resp BP Sys/Rodriguez Pulse Ox Last 24 Hr 96.6 F-98.9 F 64-134 13-26 77-126/38-80 91-100 General appearance: under weight - Eye Eye exam: Present: EOMI - Respiratory Respiratory exam: Present: clear to auscultation bilaterally - Cardiovascular Cardiovascular exam: Present: regular rate and rhythm - GI/Abdominal GI/Abdominal exam: Present: hyperactive bowel sounds, tenderness (mild upper abdomen). Absent: firm, guarding - Neurological Exam Neurological exam: Present: alert, oriented X3 - Psychiatric Psychiatric exam: Present: normal affect, normal mood - Skin Skin exam: Present: normal color, dry
[2017-03-26] MEDS ORDERED: fentaNYL 100 MCG/2 ML VIAL ONE (14:07)
--- NOTE | 2017-03-26 14:15 | Physician Query Form ---
CLICK EDIT DOCUMENT TO SELECT QUERY ANSWER --> OK --> SIGN Janet Lagunas RN Clinical Panel Installer W) [phone] (f) [phone] [email or web address] PROVIDERS: Make your selection(s) from the choices in EACH section by typing an "x" and enter comments in the comment section. Please use your independent medical judgment in providing your response. This request does not imply that any particular answer is desired or expected. CLINICAL INDICATORS: (Providers should not edit this section) Based on documentation of "Her blood pressure was then noted to be dropping in the 80s/60s and was tachycardic in the 150s-160s. She was immediately started on IVF bolus" and "patient developed hypotension, increasing melena, need for pressors, and tachycardia all of which indicated to me that she may have opened up her bleeding site in her duodenum". Pt. received 3 units of PRBC's. Please clarify which, if any, of the following is the etiology of the above symptoms and treatment rendered: ( ) Hypovolemic shock ( ) Cardiogenic shock ( x) Hemorrhagic shock ( ) Traumatic shock ( ) Shock due to, please specify etiology: ( ) Shock, unknown etiology ( ) Drug induced, please specify substance: ( ) Iatrogenic Hypotension ( ) Orthostatic Hypotension ( ) Hypotension, unknown etiology ( ) Other, please specify: ( ) Clinically unable to determine COMMENTS: PLEASE ALSO DOCUMENT RESPONSE IN PROGRESS NOTES AND/OR DISCHARGE SUMMARY Use of terms such as suspected, likely, or probable (associated with a specific diagnosis that is being evaluated, monitored, or treated as if it exists) are acceptable and can be restated in the discharge summary if not ruled out. MTDD
--- NOTE | 2017-03-26 15:01 | Hospitalist Progress Note ---
Assessment and Plan (1) Duodenal ulcer with hemorrhage Problem details: seen and injected on endo but not able to be adequately controlled Status: Acute Assessment and plan: Post EGD on March 24, 2017 which found a large duodenal ulcer 2.5 cm with mild gastritis and fungal appearing esophagitis. Biopsies taken no H pylori. Colonoscopy on March 24, 2017 shows heavy left-sided diverticulosis but otherwise normal colonoscope with small internal hemorrhoids noted. Evidence of rebleed noted. Patient became hypotensive. Repeat EGD on March 25, 2017 visible vessel injected with epinephrine. Patient remains on pressors and is still receiving blood. Dr. Poppy MCKENNA consulted. Proceed with arteriogram by interventional radiology to see if embolization needed. Current Visit: Yes (2) Acute blood loss anemia Status: Acute Assessment and plan: Continue serial hemoglobins and transfuse for hemoglobin less than 8. We will attempt to wean off pressors. Hemoglobin now up to 13. Patient has received a total of 6 units of packed red blood cells Current Visit: Yes (3) COPD exacerbation Status: Acute Assessment and plan: resolved, duonebs, cxr, cont daliresp, check bnp Current Visit: No (4) Leukocytosis Status: Acute Assessment and plan: cefepime on 03/15 and levaquin started 03/15, WBC improving, stop abx Current Visit: Yes (5) Fungal esophagitis Status: Acute Assessment and plan: cont diflucan IV Current Visit: Yes (6) Hypotension Status: Acute Assessment and plan: wean off pressors, received 6 units of PRBC, check bnp Current Visit: Yes (7) Acute and chronic respiratory failure ([id number]) Status: Acute Assessment and plan: resolved Current Visit: Yes Qualifiers: Respiratory failure complication: hypoxia and hypercapnia Qualified Code(s) : J96.21 - Acute and chronic respiratory failure with hypoxia; J96.22 - Acute and chronic respiratory failure with hypercapnia Hospitalist: Subjective Interval history: Patient received another 2 units of packed red blood cells. Repeat hemoglobin is 13.4. Dr. Poppy MCKENNA was consulted for possible surgical intervention. Patient was on pressors today. IR will do an arteriogram and see if she needs embolization. Exam - Constitutional Vitals: Period Temp Pulse Resp BP Sys/Rodriguez Pulse Ox Last 24 Hr 96.6 F-98.9 F 64-120 13-26 79-126/38-80 91-100 Exam: Heart Rate-[RRR] Lungs-[CTAB but diminished] GI-[+bs soft, NT] Ext-[no edema] Neuro [Motor 5/5], [alert and oriented times 3] psych [normal mood and affect] General [no acute distress] Results - Labs CBC & BMP: 03/26/17 12:47 03/26/17 00:39 Lab Results: I have reviewed the past 24 hour labs Labs: Blood cultures 2 negative downgrowth, sputum growing Klebsiella and Pseudomonas. Status post biopsy of duodenal ulcer from March 24, 2017 shows no evidence of H. pylori - Diagnostic Findings Procedure: KUB x-ray: report reviewed by me (Unremarkable) Specialty Discharge - Follow Up or Referrals Follow up with: Joel Gary MD [Physician] - 05/05/17 12:30 pm (6 week appointment bmp,cbc, chest x ray) Brien Tobias MD [Physician] - 05/12/17 10:00 am (6 weeks)
--- NOTE | 2017-03-26 15:27 | Post Interventional Procedure ---
Pre-op diagnosis: Duodenal ulcer with hemorrhage Post-op diagnosis: same Procedure: Gastroduodenal artery embolization Contrast: 135 mL Omni 350 Flouroscopy: 24.7 min Radiologist: Jackson Yeung Anesthesia: conscious sedation Medications: 50 mcg IV Fentanyl Total Sedation Time: 75 min Specimens: none sent Estimated blood loss: minimal (10 mL) Complications: none Condition: stable Description/Findings: Gastroduodenal artery was subselectively catheterized. Arteriogram demonstrates large pancreaticoduodenal and supraduodenal vessels. There is significant motion due to patient unable to suspend respiration on the arteriograms and minimal active hemorrhage from the large supraduodenal branch vessel is suspected. However, given the prior endoscopy findings and limited other options, coil embolization of the gastroduodenal artery and small supraduodenal/pancreaticoduodenal branch vessels was performed without issue. Patient tolerated the procedure well and left the procedure area in stable condition. Assessment and Plan - Time spent with patient Time spent with patient: Greater than 30 minutes (1) Duodenal ulcer with hemorrhage Problem details: seen and injected on endo but not able to be adequately controlled Status: Acute Assessment and plan: Not a great surgical candidate due to pulmonary status but surgery aware if needed. Will plan for angio and embolization of the GDA. Current Visit: Yes
--- NOTE | 2017-03-26 17:21 | Interventional Radiology Rpt ---
IR angio mesenteric, IR angio each add vessel, IR angio each add vessel, IR embolization for hemorrhage Clinical Information: 57-year-old female with large duodenal ulcer visualized at endoscopy status post temporary peripheral epinephrine injection for hemostasis. Endoscopic report demonstrates obvious large submucosal vessel which was not amenable to clipping. Patient is referred for definitive endovascular therapy with angiography and embolization of the gastroduodenal artery. Physician: Dr. Yeung Procedure: The patient was advised of the benefits, risks, and alternatives of the procedure and informed consent was obtained. A time out was performed with verification of the patient's name, MRN, site of procedure, and type of procedure to be performed. The patient was positioned in the supine position on the angiographic table. The site was prepped and draped in the usual sterile fashion. Moderate sedation was performed by the physician including the presence of an independent trained observer that assisted in monitoring the patient's level of consciousness and physiological status. Following the administration of 50 mg intravenous Versed the physician spent 57 minutes of continuous [id number] time with the patient. A multimedia coordinator radiograph reveals no relevant abnormality. 2% lidocaine was used for local anesthesia. The right common femoral artery was accessed with a microintroducer set. A short 0.018" wire was inserted and the needle was exchanged for a 4 Fr microintroducer sheath. The guidewire and dilator were removed and a 0.035" J-wire was advanced into the abdominal aorta. A 6 Fr sheath was placed over the wire. A 5F Omniflush catheter was inserted through the sheath and placed into the upper abdominal aorta. Aortography demonstrates a normal appearing abdominal aorta, common iliac, single bilateral renal, superior mesenteric, and celiac arteries. The right hepatic artery is not replaced to the superior mesenteric artery. The Omniflush catheter was then exchanged for a 5 [place]an C2 catheter. The celiac artery was catheterized. Initial arteriogram is limited with the C2 catheter being dislodged. CT catheter was exchanged for a Hines 1 catheter. Again, the celiac artery was catheterized. Arteriogram demonstrates normal proximal celiac and splenic vessels. The hepatic arteries appear grossly within normal limits. The gastroduodenal artery is partially visualized. The common hepatic artery was subselectively catheterized with 5 [place]an catheter. A 2.8 Fr Progreat microcatheter was then inserted through the diagnostic catheter. The gastroduodenal artery was superselectively catheterized. Arteriogram demonstrates large pancreaticoduodenal branch vessels likely in the vascular supply to the duodenal bulb. Scant active hemorrhage is difficult to visualize due to significant bowel motion and respiratory motion. Measurements were obtained. Embolization was performed of the distal gastroduodenal artery and large supraduodenal branch. Repeat arteriogram demonstrates continued supply to a large proximal superior pancreaticoduodenal branch. The microcatheter was exchanged for a Tauntr swan-neck 2.5 [place]an microcatheter. The superior pancreaticoduodenal branch was superselectively catheterized from the gastroduodenal artery. Repeat arteriogram suggests brisk arterioportal shunting and supply to the vascular territory of the proximal duodenal bulb. This vessel was then subselectively coil embolized. Final arteriogram via the microcatheter in the proximal duodenum gastroduodenal artery demonstrates minimal residual supply within the superior pancreaticoduodenal branches. The main gastroduodenal artery is embolized/occluded. The microcatheter and diagnostic catheter were removed without difficulty. Right common iliac arteriogram was performed via the 5 [place]ankan vascular sheath. However, subsequently the decision was made not to place an active closure device. A radial pressure was held at the puncture site to obtain hemostasis. Sterile dressing was applied. The patient tolerated the procedure well and was returned to the PRU in stable condition. EBL: < 5 mL. Complications: None. Fluoroscopy time: 24.7 minutes Number of images for the procedure: 661 Conclusion: 1. Large superior pancreaticoduodenal and supraduodenal branches from the gastroduodenal artery which are in the vascular territory seen on endoscopy where the largest duodenal ulcer is visualized. Due to bowel peristalsis and respiratory motion. Small focal hemorrhage is suspected but not well visualized. 2. Successful collateralization of the gastroduodenal artery and prominent branches as detailed above. 3. Small hematoma at the right common femoral artery puncture site. PROCEDURE INTERPRETED AT [facility] DEPARTMENT OF RADIOLOGY Final Report Signed by: Jackson Yeung
[2017-03-26] MEDS: FLUCONAZOLE INJ 100 MG in IV BAG 1 EACH IV SCH (17:30)
[2017-03-26] MEDS: oxyCODONE/ACETAMINOPHEN 5-325 MG TABLET PO PRN ×2 (17:34→23:30)
--- NOTE | 2017-03-26 18:30 | XRay Report ---
Exam: XR chest 1V portable Indication: Shortness of breath Comparison study: 03/25/2017 at 12:35 PM Findings: The heart, mediastinum and bony structures are stable from prior. Probable skinfold overlies the lateral left lung. There is no focal consolidation, pneumothorax or pleural effusion identified. Partially imaged pedicle screws and stabilization rods extending from the lower thoracic to lumbar spine. Impression: No acute cardiopulmonary process. No significant change from prior. PROCEDURE INTERPRETED AT [facility] DEPARTMENT OF RADIOLOGY Final Report Signed by: Jackson Yeung
[2017-03-26] MEDS: ALBUTEROL/IPRATROPIUM 3 ML NEB RESP TX SCH (20:28)
[2017-03-27] MEDS: HYDROmorphone 2 MG/1 ML VIAL IV PRN ×4 (02:40→21:50)
[2017-03-27] MEDS: oxyCODONE/ACETAMINOPHEN 5-325 MG TABLET PO PRN ×3 (05:43→17:49)
[2017-03-27] MEDS: PHENYLEPHRINE DRIP 40 MG/250 ML PREMIX IV SCH (05:45)
--- NOTE | 2017-03-27 06:50 | Gastrointestinal Progress Note ---
Assessment and Plan (1) Duodenal ulcer with hemorrhage Problem details: seen and injected on endo but not able to be adequately controlled Status: Acute Assessment and plan: This proved to be the patient's source for bleeding, this was a sizable 2.5 cm ulcer just past the pyloric channel in the proximal duodenum. This did have a pigmented spot indicative of potential bleeding vessel. Margins were biopsied, biopsies were taken the gastric antrum and body to look for Helicobacter pylori , this may be NSAID induced. She did not appear to be actively bleeding. Agree with Protonix twice daily and await biopsy results. If the patient is able to eat we can contact her with these biopsies when they become available. 03/25/17--Biopsies are pending but I doubt this will be a malignancy. Patient will need to avoid NSAIDs for the next month while this is healing up. Her hematocrit appears to be stable. She has a prescription for the Protonix twice daily as well as fluconazole for her fungal esophagitis. She is stable enough to be able to be discharged in my opinion at this time. The GI workup is complete I will sign off at this time, but will call the patient when the biopsies become available if they are not available at the time of discharge. 03/26/17--the patient is gotten 1 of the 2 units written for yesterday. She is still requiring low doses of pressors. We will need to get a tagged red blood cell scan to see if she continues to bleed and if still bleeding she will need arteriography to embolize either the branch of the gastroduodenal artery versus the superior pancreaticoduodenal artery branch. Unfortunately I do not believe that this lesion is going to be amenable to endoscopic treatment. I can tell this is quite a large vessel we are dealing with and the positioning is not optimal for placement of endoclip. Surgery may also become necessary as well for resection of the duodenal bulb if embolization is inadequate. 03/27/17--hemoglobin is certainly improved as of the transfusions given yesterday. I suspect that the artery is been successfully embolized as results of Dr. Yeung coiling of the vessel yesterday during interventional radiology arteriography. The patient had been mildly septic the day prior although her white count had come down some and I suspect this embolization made increase the bacterial translocation across the intestine which may need to be covered with antibiotics. I am checking a CBC formally to get a white blood cell count and if this is elevated I would consider this presumptive evidence along with the patient's low-grade fevers for increased bacterial translocation would suggest use of medication such as Zosyn cover her for gram-negative rods while she is recovering from the embolization. This should allow us to be able to wean her off the pressors. I will order blood cultures at this time presumptively as well. Current Visit: Yes (2) Gastrointestinal hemorrhage with melena Status: Acute Assessment and plan: This patient has a combination of severe epigastric pain and dark stools that have been on and off for several weeks and also has a history of gastric ulcer some 20 years ago. She certainly could have recurrence of this which has been worsened during this admission by exposure to Lovenox. There is certainly guaiac positive stool and physical examination and I strongly suspect there may be gastric ulcers, erosions but cannot rule out gastric cancer or AVMs in this setting. We will perform upper endoscopy and given the fact the patient has not had colorectal cancer screening in many years will likely add on a colonoscopy seeing is her medical rate is dropped down to 20% during this admission. She could potentially be discharged on Friday if no cancer no active bleeding or discovered. Seeing as she is eating at this point I am going to advance her to oral Protonix twice daily to suppress the acidity in her stomach. This should help out with pain and potential ulcer disease we will check for Helicobacter pylori during upper endoscopy. She does not know if she has a history of polyps. The patient understands the risks of the procedure include but are not limited to: Bleeding, infection, perforation, cardiac and pulmonary compromise. 03/23/17--this patient may have a recurrence of her gastric ulcer, there may be gastritis or other cause for her anemia. Given the dark stools a suspect probably the former. She is due to undergo colonoscopy before she leaves at the same time, due to the extremely low hematocrit. It is many as 10% of cases with iron deficiency anemia there are 2 sources causing the problem. She may be able to be discharged after the upper and lower endoscopies tomorrow. 03/24/17--the patient's colonoscopy was essentially normal where is the upper endoscopy showed a 2.5 cm in the proximal duodenal bulb/pyloric channel which appeared to be the source the patient's bleeding. Mild gastritis and some fungal esophagitis were also noticed incidentally. Will start patient on fluconazole in addition to the twice daily pantoprazole. If her hematocrit remains stable she is certainly welcome to be followed up in the clinic. I have written her prescription which I have paperclip to the front of the chart for use as an outpatient. Fungal esophagitis will require 10 days worth of the fluconazole. This as well as the ulcer thought to be the source the patient's anorexia/pain. 03/25/17--The patient is doing well with only minimal epigastric tenderness. Her appetite is picking up already. She has prescriptions written for the Protonix and fluconazole and her chart. She is safe for discharge in my opinion today. I would like her to follow-up with me in 6 weeks, so I can check her weight and hematocrit at that time. If biopsies are not back this afternoon by the time she is discharged certainly would not hold her here awaiting these results. I will contact her when these become available. 03/26/17--We will continue to watch her on clear liquids for the present time. Observe in the ICU until we can establish her stability before sending her upstairs again. Agree with switching over her medications to IV to ensure these are not loss with emesis. 03/27/17--I think we can advance her to a full liquid diet to see how she tolerates this. She may have significant nausea and vomiting but I would like to see how she does with this higher calorie full liquid diet. Current Visit: Yes (3) Generalized abdominal pain Status: Acute Assessment and plan: Most of the pains for this patient are in the epigastric region which would tend to point towards peptic ulcer disease or erosive disease. Some of the pain is in the bilateral lower quadrants and I suspect this may be due to constipation induced irritation. Physical examination she does have hard stools , we cannot rule out a lower GI bleeding source and so we will add a colonoscopy as previously mentioned to the upper endoscopy also to be done on 03/24/17. 03/23/17--The abdominal pain has resolved completely at this point. We will continue to observe. 03/24/17--the colonoscopy demonstrated some fairly severe left-sided diverticulosis but no evidence of diverticulitis or mass or polyp. Generalized abdominal pain may be associated with constipation/IBS. 03/25/17--Overall this pain appears improved. Continue low level laxatives with MiraLAX as needed for the underlying constipation. 03/26/17--I doubt that we will need any laxatives as blood is wonderful cathartic. Observe for now. Fortunately her white blood cell count is come back to its previous range. I do not believe there was a perforation. 03/27/17--No further episodes of melena we continue to observe the patient's hemoglobin is improved but still showing a slow drift downward. Checking now for low-grade sepsis given the patient's inability to wean off of pressors. Current Visit: Yes (4) Severe protein-calorie malnutrition Status: Acute Assessment and plan: Not sure that I would call her malnutrition severe she does have an albumin of 2.3 and she does have poor p.o. intake. We will check and make sure she does not have colon cancer and I suspect that is her gastritis is treated she will improve as far as her appetite. She needs to steer clear of NSAIDs for the future if at all possible. Again Protonix 40 mg twice daily has been initiated to help out with the underlying inflammation in the stomach. Steroids have to be continued for the present time because of her underlying COPD. 03/23/17--This is another reason colonoscopy is being done to look for a cause for the patient's malnutrition. Upper endoscopy could certainly result in decreased appetite which could have a negative impact on her p.o. intake as well. EGD and colonoscopy tomorrow planned. 03/24/17--I believe this is probably a consequence of the ulcer and reflux/ fungal esophagitis. We will continue to observe as these are treated appropriately. We will see how she does with a diet in-house. 03/25/17--The patient was again advised to drink 4 ounces of water after taking her inhaled steroid doses in order to cut back on the fungal esophagitis in the future. Will follow her up to see if her weight is improved by the time she comes back into the office in 6 weeks. Thank you for the opportunity see this very pleasant lady, will be signing off at this time. 03/26/17--We may start boost or Ensure supplements tomorrow once we ensure the patient does not need to go to surgery. 03/27/17--Started on the full liquid diet now. Current Visit: Yes Gastroenterology - PN: Subj Interval history: Patient spiking low-grade temperatures up to 99.4 over the evening time and unable to completely wean off of the pressors. Events of yesterday noted including embolization of a prominent branch of the gastroduodenal artery suspected to be causing low-grade bleeding. Patient's pain is slightly higher than yesterday today now up to a 6 out of 10 in intensity. Overall she looks fairly good to me but appears to be sweating. I am concerned she might have a low-grade sepsis, worsening bacterial translocation at the site of the ulcer. Her hematocrit remained stable although drifting down very slightly based on hemoglobins over the evening time. I have asked for a CBC to be done this morning and if the white count is significantly elevated we might want to cover her for gram-negative rods prophylactically as her duodenum heals. Exam (Progress Note) - Constitutional Vitals: Period Temp Pulse Resp BP Sys/Rodriguez Pulse Ox Last 24 Hr 97.3 F-98.9 F 59-96 12-25 75-149/45-80 93-100 General appearance: mild distress - Eye Eye exam: Present: EOMI - Respiratory Respiratory exam: Present: clear to auscultation bilaterally. Absent: rhonchi, stridor, wheezes - Cardiovascular Cardiovascular exam: Present: regular rate and rhythm - GI/Abdominal GI/Abdominal exam: Present: normal bowel sounds, tenderness (Epigastric region) , soft. Absent: distended, guarding, rebound - Extremities Exam Extremities exam: Absent: edema - Neurological Exam Neurological exam: Present: alert, oriented X3 - Psychiatric Psychiatric exam: Present: normal affect, normal mood - Skin Skin exam: Present: warm Results - Labs CBC & BMP: 03/27/17 00:53 03/26/17 00:39 Specialty Discharge - Follow Up or Referrals Follow up with: Joel Gary MD [Physician] - 05/05/17 12:30 pm (6 week appointment bmp,cbc, chest x ray) Brien Tobias MD [Physician] - 05/12/17 10:00 am (6 weeks)
[2017-03-27] MEDS: SODIUM CHLORIDE 0.9% 1,000 ML IV SCH (07:00)
[2017-03-27] MEDS: ONDANSETRON 4 MG/2 ML VIAL IV PRN ×2 (07:35→22:10)
[2017-03-27 07:37] LABS: Basophils % 0.2 % (0.0-0.8); Eosinophils % 0.2 % (0.00-10.9); Hematocrit 34.3 VOL% (35.7-47.0); Hemoglobin 11.8 GM/DL (12.0-16.0); Immature Granulocytes % 1.7 %; Immature Granulocytes Absolute 0.22 #; Lymphocytes # 1.7 10*3/uL (1.4-4.0); Lymphocytes % 12.8 % (21.3-54.2); Mean Corpuscular HGB Conc 34.4 GM/DL (32-36); Mean Corpuscular Hemoglobin 31 PG (27-34); Mean Corpuscular Volume 89.3 FL (87-102); Mean Platelet Volume 7.9 FL (9.6-12.0); Monocytes # 0.9 10*3/uL (0.11-0.8); Monocytes % 6.6 % (1.7-12.7); Neutrophils # 10.3 10*3/uL (1.4-7.4); Neutrophils % 78.5 % (38.7-73.9); Platelet Count 203 T/CUMM (130-400); Red Blood Count 3.84 MC/CUMM (3.8-5.5); Red Cell Distribution Width 16.8 % (9.3-17.3); White Blood Count 13.1 T/CUMM (4-12)
[2017-03-27] MEDS: ALBUTEROL/IPRATROPIUM 3 ML NEB RESP TX SCH ×4 (07:45→20:54)
--- NOTE | 2017-03-27 08:00 | Pulmonology Progress Note ---
Pulmonary - PN: Subj Interval history: This 56-year-old white female has severe COPD. She is on home oxygen. An acute exacerbation over week that got worse. Was intubated and admitted yesterday. This morning she is much more alert. ABGs much improved. We will start CPAP and see if we can get her extubated. 03/17/2017 patient did well with CPAP yesterday. PCO2 is now down to normal. Will try to get her extubated this morning 03/18/2017 patient was extubated yesterday without difficulty. She is taking clear liquids for supper. She has some mild nausea this morning otherwise feeling better. She has grown Klebsiella and Pseudomonas from bronchial washings. She is well covered with cefepime and Levaquin. She could go to the floor today. Theophylline level is low. Stopping Aminophyllin. Continuing Daliresp. Need to watch that because it can cause some nausea. 03/19/2017 patient now on 5 E. She is coughing a good bit and short of breath with effort but is better. She is alert and I think we can start reducing her medications. Probably still needs IV meds another day or 2. 03/20/2017 patient is feeling a little better. Still having a good bit of coughing. I do think she needs IV medication for at least another 1-2 days from now 03/21/2017 patient feeling much better but her hematocrit has dropped to 20. She has a history of anemia requiring blood transfusions following surgery in the past. She does not know the cause of the anemia. I have ordered anemia profile. She is to get blood today. She may need a GI endoscopy set up if stools are positive. Her COPD is improved. I have decreased her steroids. Probably could change to oral medications in another day or so. 03/24/2017 patient is much better. She has been transfused and her hematocrit is around 30. She is set up for EGD and colonoscopy today. She does have severe COPD and has recently been mechanically ventilated. Will need close watch by anesthesia during procedure. 03/25/2017 GI evaluation has indicated a 2.5 cm duodenal ulcer. This is likely to be the cause of her blood loss. She is now on Protonix twice a day. Will need follow-up CBCs. I have advised her to watch her stools for signs of blood mainly melena. I will see her back in a month or so for her COPD and we can check a CBC at that time. I did stop her prednisone. She is not wheezing. Prednisone increases the risk for ulcers as well. 03/26/2017 patient was bleeding yesterday. Taken back to endoscopy lab and had the ulcer injected with epinephrine. It appears that she still may be bleeding. She is on her second unit of blood. Dr. Tobias is managing this. Patient may require surgery. Her COPD appears to be stable at present. 03/27/2017 patient does not appear to be bleeding further. She has had coils to stop the bleeding. She is not having fever. She does have some nausea. I had started Daliresp on admission and it could be adding to the nausea. Her lungs are stable and I will stop the Daliresp. Defer to GI as far as restarting antibiotics. Her white blood count this morning is 13,100. She was on antibiotics for a good while earlier this admission for her COPD exacerbation and Klebsiella/Pseudomonas in sputum. Exam (Progress Note) - Constitutional Vitals: Period Temp Pulse Resp BP Sys/Rodriguez Pulse Ox Last 24 Hr 97.5 F-98.9 F 59-96 12-25 75-149/45-80 93-100 Exam: Patient's alert and responsive. Seems oriented. Wearing nasal oxygen. Vital signs are normal. Pupils react to light. Neck is supple. Chest reveals prolonged expiratory phase but I do not hear any wheezing today. Heart normal rate rhythm no murmurs. Abdomen soft nontender no masses. Bowel sounds present. Extremities no clubbing cyanosis edema. Results - Labs CBC & BMP: 03/27/17 07:28 03/26/17 00:39 Lab Results: I have reviewed the past 24 hour labs Assessment and Plan (1) Acute and chronic respiratory failure ([id number]) Status: Acute Assessment and plan: She has been on oxygen. Her PCO2 runs around 60 when she is at her baseline. It was up to 80. She may be difficult to wean. 03/16/2017 ABGs improved. PCO2 down to 44. Needs a little Diamox. Reduce FiO2. Start weaning today. May be able to get her extubated today but probably will take another day. 03/17/2017 PCO2 down to normal. Should be able to extubate today. 03/18/2017 patient has done well postextubation. Continuing low flow oxygen. 03/19/2017 Will reduce Solu-Medrol a little. Still needs oxygen. 03/20/2017 patient is off the ventilator. Still requiring oxygen. She had both hypercarbic and hypoxemic acute on chronic respiratory failure. They are improved 03/21/2017 patient doing well off the ventilator. She is on nasal oxygen. The severe anemia is aggravating things. She has oxygen at home but has asked for a different set up. Social work is looking into that. If she is discharged this weekend I could see her in the clinic in about 2 weeks for follow-up. 03/24/2017 she is over the acute episode of respiratory failure. Still requiring some nasal oxygen. She does tend to retain carbon dioxide with sedation. 03/25/2017 acute respiratory failure is resolved. 03/26/2017 she is not in respiratory failure at present. However if she does have surgery for the GI bleeding she likely will need mechanical ventilation for a couple of days postop. 03/27/2017 O2 sats look good on nasal oxygen. Acute respiratory failure has resolved. She has chronic need for oxygen, and chronic ventilatory failure. Current Visit: Yes Qualifiers: Respiratory failure complication: hypoxia and hypercapnia Qualified Code(s) : J96.21 - Acute and chronic respiratory failure with hypoxia; J96.22 - Acute and chronic respiratory failure with hypercapnia (2) Severe protein-calorie malnutrition Status: Acute Assessment and plan: We will need NG tube feedings 03/16/2017 continuing NG feeding 03/17/2017 continuing management per NG tube. 03/18/2017 progress diet orally. 03/19/2017 progressing with diet. 03/20/2017 patient eating a little better. 03/21/2017 appetite is better. 03/25/2017 she is eating better. Certainly an ulcer might have been a part of the cause for this. 03/26/2017 nutrition is being held up by her ulcer. 03/27/2017 starting back on full liquids. Current Visit: Yes (3) COPD exacerbation Status: Acute Assessment and plan: Bronchodilator steroids and empiric antibiotics. Since she has severe COPD would go with Levaquin plus cefepime. 03/16/2017 continuing intravenous corticosteroids and antibiotics. Broad- spectrum due to her COPD. Continuing bronchodilators. 03/17/2017 no active bronchospasm. Continue current medications. 03/18/2017 bronchospasm improving. Reduce steroids. We have also added Daliresp for long-term treatment. Watch for nausea. 03/19/2017 reduce steroids today. Probably needs another day or 2 of IV medications. 03/20/2017 still having exacerbation. Keep on IV steroids for now as well as IV antibiotics. 03/21/2017 have reduce steroids a little. Could go to oral medications tomorrow. 03/24/2017 tapering steroids. About ready for discharge from pulmonary standpoint. Will need to be watched overnight after scopes. 03/25/2017 she is doing much better. Antibiotics and prednisone can be stopped. She had Flor esophagitis and does need Diflucan for a few more days. 03/26/2017 she is about at her baseline status for as the COPD is concerned. 03/27/2017 has severe COPD but is back to her baseline. Current Visit: No Specialty Discharge - Follow Up or Referrals Follow up with: Joel Gary MD [Physician] - 05/05/17 12:30 pm (6 week appointment bmp,cbc, chest x ray) Brien Tobias MD [Physician] - 05/12/17 10:00 am (6 weeks)
[2017-03-27] MEDS ORDERED: ONDANSETRON 4 MG/2 ML VIAL IV ONE (09:00)
[2017-03-27] MEDS: NYSTATIN 500,000 UNIT/5 ML UDCUP SWISH/SWAL SCH ×4 (09:48→21:28)
[2017-03-27] MEDS: GABAPENTIN 300 MG CAPSULE PO SCH ×3 (09:48→21:28)
[2017-03-27] MEDS: DESITIN 4OZ/NYSTATIN 15 GRAM MIXTURE PASTE TOP SCH ×2 (09:48→21:29)
[2017-03-27] MEDS: CITALOPRAM 40 MG TABLET PO SCH (09:48)
[2017-03-27] MEDS: PANTOPRAZOLE 40 MG VIAL IV SCH ×2 (09:49→21:28)
[2017-03-27] MEDS: PROMETHAZINE 25 MG/1 ML VIAL IM PRN ×2 (11:26→19:45)
--- NOTE | 2017-03-27 12:33 | Event Note ---
Patient seen following embolization of the gastroduodenal artery. Patient has some abdominal complaints which are vague and may be related to the embolization or the known duodenal ulceration. Patient is tolerating some diet. However, she has had a low-grade fever and does appear slightly more toxic today. The slight decline in her hematocrit levels are not yet concerning. No definite signs of obvious bleeding/melena at this point. May need repeat endoscopy. Unfortunately, the blood pressure support is also not able to be weaned off yet, which hopefully will occur within the next 24 hours.
--- NOTE | 2017-03-27 13:16 | Hospitalist Progress Note ---
Assessment and Plan (1) Duodenal ulcer with hemorrhage Problem details: seen and injected on endo but not able to be adequately controlled Status: Acute Assessment and plan: s/p coiling, stable hgb at 10.6 Current Visit: Yes (2) Acute blood loss anemia Status: Acute Assessment and plan: hgb 10.6, cont protonix Current Visit: Yes (3) COPD exacerbation Status: Acute Assessment and plan: resolved, duonebs, cxr, cont daliresp, BNP 56. Current Visit: No (4) Leukocytosis Status: Acute Assessment and plan: no more abx Current Visit: Yes (5) Fungal esophagitis Status: Acute Assessment and plan: cont diflucan IV Current Visit: Yes (6) Hypotension Status: Acute Assessment and plan: wean off pressors, ns bolus, cont to wean Current Visit: Yes (7) Acute and chronic respiratory failure ([id number]) Status: Acute Assessment and plan: resolved Current Visit: Yes Qualifiers: Respiratory failure complication: hypoxia and hypercapnia Qualified Code(s) : J96.21 - Acute and chronic respiratory failure with hypoxia; J96.22 - Acute and chronic respiratory failure with hypercapnia Hospitalist: Subjective Interval history: Hgb better today, Still unable wean off pressors. will give NS bolus, UO low Exam - Constitutional Vitals: Period Temp Pulse Resp BP Sys/Rodriguez Pulse Ox Last 24 Hr 97.0 F-98.9 F 59-89 12-25 75-149/42-80 93-100 Exam: Heart Rate-[RRR] Lungs-[CTAB GI-[+bs soft, NT] Ext-[no edema] Neuro [Motor 5/5], [alert and oriented times 3] psych [normal mood and affect] General [no acute distress] Results - Labs CBC & BMP: 03/27/17 09:58 03/26/17 00:39 Lab Results: I have reviewed the past 24 hour labs Specialty Discharge - Follow Up or Referrals Follow up with: Joel Gary MD [Physician] - 05/05/17 12:30 pm (6 week appointment bmp,cbc, chest x ray) Brien Tobias MD [Physician] - 05/12/17 10:00 am (6 weeks)
--- NOTE | 2017-03-27 14:22 | Hospitalist Progress Note ---
Assessment and Plan (1) Duodenal ulcer with hemorrhage Problem details: seen and injected on endo but not able to be adequately controlled Status: Acute Assessment and plan: s/p coiling, stable hgb at 10.6 Current Visit: Yes (2) Acute blood loss anemia Status: Acute Assessment and plan: hgb 10.6, cont protonix Current Visit: Yes (3) COPD exacerbation Status: Acute Assessment and plan: resolved, duonebs, cxr, cont daliresp, BNP 56. Current Visit: No (4) Leukocytosis Status: Acute Assessment and plan: no more abx Current Visit: Yes (5) Fungal esophagitis Status: Acute Assessment and plan: cont diflucan IV Current Visit: Yes (6) Hypotension Status: Acute Assessment and plan: wean off pressors, ns bolus, cont to wean Current Visit: Yes (7) Acute and chronic respiratory failure ([id number]) Status: Acute Assessment and plan: resolved Current Visit: Yes Qualifiers: Respiratory failure complication: hypoxia and hypercapnia Qualified Code(s) : J96.21 - Acute and chronic respiratory failure with hypoxia; J96.22 - Acute and chronic respiratory failure with hypercapnia Hospitalist: Subjective Interval history: Patient is on stage III of weaning trials. I spoke with Dr. Espinal and he is making arrangements to transfer her to [facility] for aortic and mitral valve replacement under the care of Dr. Steele Exam - Constitutional Vitals: Period Temp Pulse Resp BP Sys/Rodriguez Pulse Ox Last 24 Hr 97.0 F-98.9 F 59-90 12-25 75-149/42-80 93-100 Exam: Heart Rate-[RRR] Lungs-[CTAB GI-[+bs soft, NT] Neuro [Motor 5/5], [alert and oriented times 3] psych [normal mood and affect] General [no acute distress] Results - Labs CBC & BMP: 03/27/17 09:58 03/26/17 00:39 Specialty Discharge - Follow Up or Referrals Follow up with: Joel Gary MD [Physician] - 05/05/17 12:30 pm (6 week appointment bmp,cbc, chest x ray) Brien Tobias MD [Physician] - 05/12/17 10:00 am (6 weeks)
[2017-03-27] MEDS: FLUCONAZOLE INJ 100 MG in IV BAG 1 EACH IV SCH (15:00)
[2017-03-27] MEDS: CIPROFLOXACIN INJ 400 MG in PREMIX 1 EACH IV SCH (15:01)
[2017-03-27] MEDS: metroNIDAZOLE INJ 500 MG in PREMIX 1 EACH IV SCH ×2 (17:20→23:15)
[2017-03-28] MEDS: oxyCODONE/ACETAMINOPHEN 5-325 MG TABLET PO PRN ×4 (00:56→21:00)
[2017-03-28] MEDS: ALPRAZolam 0.5 MG TABLET PO PRN (00:57)
[2017-03-28] MEDS: ALBUTEROL/IPRATROPIUM 3 ML NEB RESP TX SCH ×4 (00:59→19:27)
[2017-03-28] MEDS: CIPROFLOXACIN INJ 400 MG in PREMIX 1 EACH IV SCH ×2 (03:30→15:30)
[2017-03-28] MEDS: SODIUM CHLORIDE 0.9% 1,000 ML IV SCH ×2 (03:50→17:30)
[2017-03-28] MEDS: PHENYLEPHRINE DRIP 40 MG/250 ML PREMIX IV SCH (03:55)
[2017-03-28 04:18] LABS: Eosinophils % 0.1 % (0.00-10.9); Hematocrit 28.7 VOL% (35.7-47.0); Hemoglobin 9.5 GM/DL (12.0-16.0); Immature Granulocytes % 1.1 %; Immature Granulocytes Absolute 0.08 #; Lymphocytes % 13.2 % (21.3-54.2); Mean Corpuscular HGB Conc 33.1 GM/DL (32-36); Mean Corpuscular Hemoglobin 30 PG (27-34); Mean Corpuscular Volume 90.8 FL (87-102); Mean Platelet Volume 8.2 FL (9.6-12.0); Monocytes # 0.5 10*3/uL (0.11-0.8); Monocytes % 7.1 % (1.7-12.7); Neutrophils # 5.7 10*3/uL (1.4-7.4); Neutrophils % 78.5 % (38.7-73.9); Platelet Count 143 T/CUMM (130-400); Red Blood Count 3.16 MC/CUMM (3.8-5.5); Red Cell Distribution Width 16.4 % (9.3-17.3); White Blood Count 7.3 T/CUMM (4-12)
[2017-03-28] MEDS: metroNIDAZOLE INJ 500 MG in PREMIX 1 EACH IV SCH ×3 (05:50→22:08)
--- NOTE | 2017-03-28 06:32 | Pulmonology Progress Note ---
Pulmonary - PN: Subj Interval history: This 56-year-old white female has severe COPD. She is on home oxygen. An acute exacerbation over week that got worse. Was intubated and admitted yesterday. This morning she is much more alert. ABGs much improved. We will start CPAP and see if we can get her extubated. 03/17/2017 patient did well with CPAP yesterday. PCO2 is now down to normal. Will try to get her extubated this morning 03/18/2017 patient was extubated yesterday without difficulty. She is taking clear liquids for supper. She has some mild nausea this morning otherwise feeling better. She has grown Klebsiella and Pseudomonas from bronchial washings. She is well covered with cefepime and Levaquin. She could go to the floor today. Theophylline level is low. Stopping Aminophyllin. Continuing Daliresp. Need to watch that because it can cause some nausea. 03/19/2017 patient now on 5 E. She is coughing a good bit and short of breath with effort but is better. She is alert and I think we can start reducing her medications. Probably still needs IV meds another day or 2. 03/20/2017 patient is feeling a little better. Still having a good bit of coughing. I do think she needs IV medication for at least another 1-2 days from now 03/21/2017 patient feeling much better but her hematocrit has dropped to 20. She has a history of anemia requiring blood transfusions following surgery in the past. She does not know the cause of the anemia. I have ordered anemia profile. She is to get blood today. She may need a GI endoscopy set up if stools are positive. Her COPD is improved. I have decreased her steroids. Probably could change to oral medications in another day or so. 03/24/2017 patient is much better. She has been transfused and her hematocrit is around 30. She is set up for EGD and colonoscopy today. She does have severe COPD and has recently been mechanically ventilated. Will need close watch by anesthesia during procedure. 03/25/2017 GI evaluation has indicated a 2.5 cm duodenal ulcer. This is likely to be the cause of her blood loss. She is now on Protonix twice a day. Will need follow-up CBCs. I have advised her to watch her stools for signs of blood mainly melena. I will see her back in a month or so for her COPD and we can check a CBC at that time. I did stop her prednisone. She is not wheezing. Prednisone increases the risk for ulcers as well. 03/26/2017 patient was bleeding yesterday. Taken back to endoscopy lab and had the ulcer injected with epinephrine. It appears that she still may be bleeding. She is on her second unit of blood. Dr. Tobias is managing this. Patient may require surgery. Her COPD appears to be stable at present. 03/27/2017 patient does not appear to be bleeding further. She has had coils to stop the bleeding. She is not having fever. She does have some nausea. I had started Daliresp on admission and it could be adding to the nausea. Her lungs are stable and I will stop the Daliresp. Defer to GI as far as restarting antibiotics. Her white blood count this morning is 13,100. She was on antibiotics for a good while earlier this admission for her COPD exacerbation and Klebsiella/Pseudomonas in sputum. 03/28/2017 systolic blood pressure around 90 and she is on some Jeff-Synephrine. Patient is off steroids for about 3 days now. COPD is stable. Still having some abdominal pain. White blood count down to normal. Patient with severe COPD that came in with exacerbation requiring mechanical ventilation. Developed an ulcer with a GI bleed. On antibiotics for sepsis which may be due to translocation of bacteria through the ulcer. Exam (Progress Note) - Constitutional Vitals: Period Temp Pulse Resp BP Sys/Rodriguez Pulse Ox Last 24 Hr 97.0 F-97.7 F 72-109 14-28 75-140/42-78 92-100 Exam: Patient's alert and responsive. Seems oriented. Wearing nasal oxygen. Vital signs are normal, except systolic blood pressure around 90. Pupils react to light. Neck is supple. Chest reveals prolonged expiratory phase but I do not hear any wheezing today. Heart normal rate rhythm no murmurs. Abdomen soft nontender no masses. Bowel sounds present. Extremities no clubbing cyanosis edema. Results - Labs CBC & BMP: 03/28/17 03:26 03/26/17 00:39 Lab Results: I have reviewed the past 24 hour labs Assessment and Plan (1) Acute and chronic respiratory failure ([id number]) Status: Resolved Assessment and plan: She has been on oxygen. Her PCO2 runs around 60 when she is at her baseline. It was up to 80. She may be difficult to wean. 03/16/2017 ABGs improved. PCO2 down to 44. Needs a little Diamox. Reduce FiO2. Start weaning today. May be able to get her extubated today but probably will take another day. 03/17/2017 PCO2 down to normal. Should be able to extubate today. 03/18/2017 patient has done well postextubation. Continuing low flow oxygen. 03/19/2017 Will reduce Solu-Medrol a little. Still needs oxygen. 03/20/2017 patient is off the ventilator. Still requiring oxygen. She had both hypercarbic and hypoxemic acute on chronic respiratory failure. They are improved 03/21/2017 patient doing well off the ventilator. She is on nasal oxygen. The severe anemia is aggravating things. She has oxygen at home but has asked for a different set up. Social work is looking into that. If she is discharged this weekend I could see her in the clinic in about 2 weeks for follow-up. 03/24/2017 she is over the acute episode of respiratory failure. Still requiring some nasal oxygen. She does tend to retain carbon dioxide with sedation. 03/25/2017 acute respiratory failure is resolved. 03/26/2017 she is not in respiratory failure at present. However if she does have surgery for the GI bleeding she likely will need mechanical ventilation for a couple of days postop. 03/27/2017 O2 sats look good on nasal oxygen. Acute respiratory failure has resolved. She has chronic need for oxygen, and chronic ventilatory failure. 03/28/2017 requiring low flow oxygen. Respiratory failure resolved. Current Visit: Yes Qualifiers: Respiratory failure complication: hypoxia and hypercapnia Qualified Code(s) : J96.21 - Acute and chronic respiratory failure with hypoxia; J96.22 - Acute and chronic respiratory failure with hypercapnia (2) Severe protein-calorie malnutrition Status: Acute Assessment and plan: We will need NG tube feedings 03/16/2017 continuing NG feeding 03/17/2017 continuing management per NG tube. 03/18/2017 progress diet orally. 03/19/2017 progressing with diet. 03/20/2017 patient eating a little better. 03/21/2017 appetite is better. 03/25/2017 she is eating better. Certainly an ulcer might have been a part of the cause for this. 03/26/2017 nutrition is being held up by her ulcer. 03/27/2017 starting back on full liquids. 03/28/2017 taking some oral liquids Current Visit: Yes (3) COPD exacerbation Status: Acute Assessment and plan: Bronchodilator steroids and empiric antibiotics. Since she has severe COPD would go with Levaquin plus cefepime. 03/16/2017 continuing intravenous corticosteroids and antibiotics. Broad- spectrum due to her COPD. Continuing bronchodilators. 03/17/2017 no active bronchospasm. Continue current medications. 03/18/2017 bronchospasm improving. Reduce steroids. We have also added Daliresp for long-term treatment. Watch for nausea. 03/19/2017 reduce steroids today. Probably needs another day or 2 of IV medications. 03/20/2017 still having exacerbation. Keep on IV steroids for now as well as IV antibiotics. 03/21/2017 have reduce steroids a little. Could go to oral medications tomorrow. 03/24/2017 tapering steroids. About ready for discharge from pulmonary standpoint. Will need to be watched overnight after scopes. 03/25/2017 she is doing much better. Antibiotics and prednisone can be stopped. She had Flor esophagitis and does need Diflucan for a few more days. 03/26/2017 she is about at her baseline status for as the COPD is concerned. 03/27/2017 has severe COPD but is back to her baseline. 03/28/2017 no wheezing. Continuing bronchodilators. Current Visit: No (4) Duodenal ulcer with hemorrhage Problem details: seen and injected on endo but not able to be adequately controlled Status: Acute Assessment and plan: Does not appear to be actively bleeding. She has been off steroids for 3 days now. Follow CBCs. GI is following Current Visit: Yes Specialty Discharge - Follow Up or Referrals Follow up with: Joel Gary MD [Physician] - 05/05/17 12:30 pm (6 week appointment bmp,cbc, chest x ray) Brien Tobias MD [Physician] - 05/12/17 10:00 am (6 weeks)
--- NOTE | 2017-03-28 06:42 | Gastrointestinal Progress Note ---
Assessment and Plan (1) Duodenal ulcer with hemorrhage Problem details: seen and injected on endo but not able to be adequately controlled Status: Acute Assessment and plan: This proved to be the patient's source for bleeding, this was a sizable 2.5 cm ulcer just past the pyloric channel in the proximal duodenum. This did have a pigmented spot indicative of potential bleeding vessel. Margins were biopsied, biopsies were taken the gastric antrum and body to look for Helicobacter pylori , this may be NSAID induced. She did not appear to be actively bleeding. Agree with Protonix twice daily and await biopsy results. If the patient is able to eat we can contact her with these biopsies when they become available. 03/25/17--Biopsies are pending but I doubt this will be a malignancy. Patient will need to avoid NSAIDs for the next month while this is healing up. Her hematocrit appears to be stable. She has a prescription for the Protonix twice daily as well as fluconazole for her fungal esophagitis. She is stable enough to be able to be discharged in my opinion at this time. The GI workup is complete I will sign off at this time, but will call the patient when the biopsies become available if they are not available at the time of discharge. 03/26/17--the patient is gotten 1 of the 2 units written for yesterday. She is still requiring low doses of pressors. We will need to get a tagged red blood cell scan to see if she continues to bleed and if still bleeding she will need arteriography to embolize either the branch of the gastroduodenal artery versus the superior pancreaticoduodenal artery branch. Unfortunately I do not believe that this lesion is going to be amenable to endoscopic treatment. I can tell this is quite a large vessel we are dealing with and the positioning is not optimal for placement of endoclip. Surgery may also become necessary as well for resection of the duodenal bulb if embolization is inadequate. 03/27/17--hemoglobin is certainly improved as of the transfusions given yesterday. I suspect that the artery is been successfully embolized as results of Dr. Yeung coiling of the vessel yesterday during interventional radiology arteriography. The patient had been mildly septic the day prior although her white count had come down some and I suspect this embolization made increase the bacterial translocation across the intestine which may need to be covered with antibiotics. I am checking a CBC formally to get a white blood cell count and if this is elevated I would consider this presumptive evidence along with the patient's low-grade fevers for increased bacterial translocation would suggest use of medication such as Zosyn cover her for gram-negative rods while she is recovering from the embolization. This should allow us to be able to wean her off the pressors. I will order blood cultures at this time presumptively as well. 03/28/17--patient's hematocrit is drifted down from 34% down to 28%. If it drops much further we need to consider repeat transfusion. She really has not had much stool out in the last several days which is a good sign that there is not a lot of blood coming through as this tends to be a fairly good cathartic. She is eating some of her tray. Given the ulcer and recent embolization I suspected that she might have a segment of her duodenum that had some blood flow compromise and bacterial translocation and so started the patient on a combination of Cipro and Flagyl (penicillin allergic) which is dropped the patient's white blood cell count hopefully we will be able to wean her off the pressors today without having to transfuse her first. If she can't be weaned today and her crit is lower tomorrow would definitely give transfusion at that point. Current Visit: Yes (2) Gastrointestinal hemorrhage with melena Status: Acute Assessment and plan: This patient has a combination of severe epigastric pain and dark stools that have been on and off for several weeks and also has a history of gastric ulcer some 20 years ago. She certainly could have recurrence of this which has been worsened during this admission by exposure to Lovenox. There is certainly guaiac positive stool and physical examination and I strongly suspect there may be gastric ulcers, erosions but cannot rule out gastric cancer or AVMs in this setting. We will perform upper endoscopy and given the fact the patient has not had colorectal cancer screening in many years will likely add on a colonoscopy seeing is her medical rate is dropped down to 20% during this admission. She could potentially be discharged on Friday if no cancer no active bleeding or discovered. Seeing as she is eating at this point I am going to advance her to oral Protonix twice daily to suppress the acidity in her stomach. This should help out with pain and potential ulcer disease we will check for Helicobacter pylori during upper endoscopy. She does not know if she has a history of polyps. The patient understands the risks of the procedure include but are not limited to: Bleeding, infection, perforation, cardiac and pulmonary compromise. 03/23/17--this patient may have a recurrence of her gastric ulcer, there may be gastritis or other cause for her anemia. Given the dark stools a suspect probably the former. She is due to undergo colonoscopy before she leaves at the same time, due to the extremely low hematocrit. It is many as 10% of cases with iron deficiency anemia there are 2 sources causing the problem. She may be able to be discharged after the upper and lower endoscopies tomorrow. 03/24/17--the patient's colonoscopy was essentially normal where is the upper endoscopy showed a 2.5 cm in the proximal duodenal bulb/pyloric channel which appeared to be the source the patient's bleeding. Mild gastritis and some fungal esophagitis were also noticed incidentally. Will start patient on fluconazole in addition to the twice daily pantoprazole. If her hematocrit remains stable she is certainly welcome to be followed up in the clinic. I have written her prescription which I have paperclip to the front of the chart for use as an outpatient. Fungal esophagitis will require 10 days worth of the fluconazole. This as well as the ulcer thought to be the source the patient's anorexia/pain. 03/25/17--The patient is doing well with only minimal epigastric tenderness. Her appetite is picking up already. She has prescriptions written for the Protonix and fluconazole and her chart. She is safe for discharge in my opinion today. I would like her to follow-up with me in 6 weeks, so I can check her weight and hematocrit at that time. If biopsies are not back this afternoon by the time she is discharged certainly would not hold her here awaiting these results. I will contact her when these become available. 03/26/17--We will continue to watch her on clear liquids for the present time. Observe in the ICU until we can establish her stability before sending her upstairs again. Agree with switching over her medications to IV to ensure these are not loss with emesis. 03/27/17--I think we can advance her to a full liquid diet to see how she tolerates this. She may have significant nausea and vomiting but I would like to see how she does with this higher calorie full liquid diet. 03/28/17--We may go ahead and give this patient a little bit of MiraLAX each day to try and flush out her bowel movements so we can follow the color to determine if she still bleeding. Current Visit: Yes (3) Generalized abdominal pain Status: Acute Assessment and plan: Most of the pains for this patient are in the epigastric region which would tend to point towards peptic ulcer disease or erosive disease. Some of the pain is in the bilateral lower quadrants and I suspect this may be due to constipation induced irritation. Physical examination she does have hard stools , we cannot rule out a lower GI bleeding source and so we will add a colonoscopy as previously mentioned to the upper endoscopy also to be done on 03/24/17. 03/23/17--The abdominal pain has resolved completely at this point. We will continue to observe. 03/24/17--the colonoscopy demonstrated some fairly severe left-sided diverticulosis but no evidence of diverticulitis or mass or polyp. Generalized abdominal pain may be associated with constipation/IBS. 03/25/17--Overall this pain appears improved. Continue low level laxatives with MiraLAX as needed for the underlying constipation. 03/26/17--I doubt that we will need any laxatives as blood is wonderful cathartic. Observe for now. Fortunately her white blood cell count is come back to its previous range. I do not believe there was a perforation. 03/27/17--No further episodes of melena we continue to observe the patient's hemoglobin is improved but still showing a slow drift downward. Checking now for low-grade sepsis given the patient's inability to wean off of pressors. 03/28/17--Improving. Current Visit: Yes (4) Severe protein-calorie malnutrition Status: Acute Assessment and plan: Not sure that I would call her malnutrition severe she does have an albumin of 2.3 and she does have poor p.o. intake. We will check and make sure she does not have colon cancer and I suspect that is her gastritis is treated she will improve as far as her appetite. She needs to steer clear of NSAIDs for the future if at all possible. Again Protonix 40 mg twice daily has been initiated to help out with the underlying inflammation in the stomach. Steroids have to be continued for the present time because of her underlying COPD. 03/23/17--This is another reason colonoscopy is being done to look for a cause for the patient's malnutrition. Upper endoscopy could certainly result in decreased appetite which could have a negative impact on her p.o. intake as well. EGD and colonoscopy tomorrow planned. 03/24/17--I believe this is probably a consequence of the ulcer and reflux/ fungal esophagitis. We will continue to observe as these are treated appropriately. We will see how she does with a diet in-house. 03/25/17--The patient was again advised to drink 4 ounces of water after taking her inhaled steroid doses in order to cut back on the fungal esophagitis in the future. Will follow her up to see if her weight is improved by the time she comes back into the office in 6 weeks. Thank you for the opportunity see this very pleasant lady, will be signing off at this time. 03/26/17--We may start boost or Ensure supplements tomorrow once we ensure the patient does not need to go to surgery. 03/27/17--Started on the full liquid diet now. 03/28/17--Leave on the full liquid diet for the present. She seems to be tolerating this adequately. This could be advanced over the weekend as GI coverage feels would be helpful. Current Visit: Yes Gastroenterology - PN: Subj Interval history: The patient is almost weaned off of her pressors. She continues to have nausea and some epigastric tenderness considering the embolization that she has had recently but with the Cipro and Flagyl started yesterday her white blood cell count has improved from 13.1-->17.3. The hematocrit continues to slow drift presently dropping from 34.3-->28.7. If this drops much further we may to consider repeating the transfusion. Exam (Progress Note) - Constitutional Vitals: Period Temp Pulse Resp BP Sys/Rodriguez Pulse Ox Last 24 Hr 97.0 F-97.7 F 72-109 14-28 75-140/42-78 92-100 General appearance: no acute distress - Head Head exam: Present: normocephalic - Eye Eye exam: Present: EOMI - Respiratory Respiratory exam: Present: clear to auscultation bilaterally. Absent: rhonchi, stridor, wheezes - Cardiovascular Cardiovascular exam: Present: regular rate and rhythm - GI/Abdominal GI/Abdominal exam: Present: normal bowel sounds, tenderness (Epigastric tenderness to moderate palpation), soft. Absent: distended, guarding, rebound - Extremities Exam Extremities exam: Absent: edema - Neurological Exam Neurological exam: Present: alert, oriented X3 - Psychiatric Psychiatric exam: Present: normal affect, normal mood - Skin Skin exam: Present: warm Results - Labs CBC & BMP: 03/28/17 03:26 03/26/17 00:39 Specialty Discharge - Follow Up or Referrals Follow up with: Joel Gary MD [Physician] - 05/05/17 12:30 pm (6 week appointment bmp,cbc, chest x ray) Brien Tobias MD [Physician] - 05/12/17 10:00 am (6 weeks)
[2017-03-28] MEDS: HYDROmorphone 2 MG/1 ML VIAL IV PRN (06:47)
--- NOTE | 2017-03-28 10:02 | Hospitalist Progress Note ---
Assessment and Plan (1) Duodenal ulcer with hemorrhage Problem details: seen and injected on endo but not able to be adequately controlled Status: Acute Assessment and plan: s/p coiling, cont to monitor hgb Current Visit: Yes (2) Acute blood loss anemia Status: Acute Assessment and plan: hgb down to 9.5, cont protonix Current Visit: Yes (3) COPD exacerbation Status: Acute Assessment and plan: duonebs and cont daliresp Current Visit: No (4) Leukocytosis Status: Acute Assessment and plan: improving, cont cipro and flagyl Current Visit: Yes (5) Fungal esophagitis Status: Acute Assessment and plan: cont diflucan IV Current Visit: Yes (6) Hypotension Status: Acute Assessment and plan: wean off pressors, Current Visit: Yes (7) Acute and chronic respiratory failure ([id number]) Status: Resolved Assessment and plan: resolved Current Visit: Yes Qualifiers: Respiratory failure complication: hypoxia and hypercapnia Qualified Code(s) : J96.21 - Acute and chronic respiratory failure with hypoxia; J96.22 - Acute and chronic respiratory failure with hypercapnia Hospitalist: Subjective Interval history: Patient is just sleeping for the Dilaudid most the day. We will attempt to get her off pressors today. She may need more fluids just to get the volume up. Hemoglobin stable for now. Thanks to Dr. Tobias for his help Exam - Constitutional Vitals: Period Temp Pulse Resp BP Sys/Rodriguez Pulse Ox Last 24 Hr 97.0 F-97.7 F 78-109 14-28 75-112/42-71 92-100 Exam: Heart Rate-[RRR] Lungs-[CTAB GI-[+bs soft, NT] Neuro [Motor 5/5], [alert and oriented times 3] psych [depressed mood and affect] General [no acute distress] Results - Labs CBC & BMP: 03/28/17 03:26 03/26/17 00:39 Lab Results: I have reviewed the past 24 hour labs Labs: Blood cultures 4 negative, sputum culture growing Klebsiella and Pseudomonas sensitive to Cipro Specialty Discharge - Follow Up or Referrals Follow up with: Joel Gary MD [Physician] - 05/05/17 12:30 pm (6 week appointment bmp,cbc, chest x ray) Brien Tobias MD [Physician] - 05/12/17 10:00 am (6 weeks)
[2017-03-28] MEDS: CITALOPRAM 40 MG TABLET PO SCH (10:15)
[2017-03-28] MEDS: GABAPENTIN 300 MG CAPSULE PO SCH ×3 (10:15→21:01)
[2017-03-28] MEDS: NYSTATIN 500,000 UNIT/5 ML UDCUP SWISH/SWAL SCH ×4 (10:16→21:03)
[2017-03-28] MEDS: POLYETHYLENE GLYCOL POWDER 17 GM PACK PO SCH ×2 (10:16→21:03)
[2017-03-28] MEDS: PANTOPRAZOLE 40 MG VIAL IV SCH ×2 (10:16→21:01)
[2017-03-28] MEDS: DESITIN 4OZ/NYSTATIN 15 GRAM MIXTURE PASTE TOP SCH ×2 (10:28→21:05)
--- NOTE | 2017-03-28 11:01 | General Surgery Progress Note ---
Assessment and Plan (1) Gastrointestinal hemorrhage with melena Status: Acute Assessment and plan: I discussed this case in detail with Dr. Daniel and also discussed this with Dr. Yeung from interventional radiology. She remains mildly hypotensive requiring pressors and I would favor going on straight to interventional radiology in looking at intervening. She is a poor surgical candidate because of her COPD on home oxygen. Hopefully we can identify a bleeding vessel to embolize and it might be worth embolizing her gastroduodenal artery was selectively it is not bleeding. I did discuss this with Dr. Yeung and we will get her back there today. I discussed the possibility of surgery with the patient if intervention radio Glock graphically is not successful. She understands that surgery will be high risk. 03/28: She has been stable since her embolization. Actually saw the patient yesterday but did not put a note in the computer. She has no complaints this morning. She has not had active bleeding. Hopefully she will not requiring surgery and she appears to be doing well. I will be available if needed for future bleeding or if needed this weekend Dr. Ron is covering in my absence. Please feel free to call but I will sign off for now. Current Visit: Yes (2) COPD exacerbation Status: Acute Assessment and plan: This will increase her risk of perioperative complications if surgery is necessary Current Visit: No Subjective Patient reports: Present: feels better, pain is less. Absent: nausea, vomiting , shortness of breath Exam - Constitutional Vitals: Period Temp Pulse Resp BP Sys/Rodriguez Pulse Ox Last 24 Hr 97.0 F-97.7 F 80-109 14-28 77-112/44-71 92-100 General appearance: no acute distress - Eye Eye exam: Absent: scleral icterus - Respiratory Respiratory exam: Absent: accessory muscle use - GI/Abdominal GI/Abdominal exam: Present: soft. Absent: distended, tenderness Results - Labs CBC & BMP: 03/28/17 03:26 03/26/17 00:39 Lab Results: I have reviewed the past 24 hour labs Specialty Discharge - Follow Up or Referrals Follow up with: Joel Gary MD [Physician] - 05/05/17 12:30 pm (6 week appointment bmp,cbc, chest x ray) Brien Tobias MD [Physician] - 05/12/17 10:00 am (6 weeks)
[2017-03-28] MEDS: ONDANSETRON 4 MG/2 ML VIAL IV PRN (13:23)
[2017-03-28] MEDS: FLUCONAZOLE INJ 100 MG in IV BAG 1 EACH IV SCH (14:28)
[2017-03-28] MEDS: CITALOPRAM 20 MG TABLET PO SCH (15:39)
[2017-03-28] MEDS ORDERED: SODIUM CHLORIDE 0.9% 1,000 ML IV ONE (20:34)
[2017-03-28] MEDS ORDERED: FLUDROCORTISONE 0.1 MG TABLET PO SCH (21:00)
[2017-03-28] MEDS: PROMETHAZINE 25 MG/1 ML VIAL IM PRN (21:01)
[2017-03-29] MEDS: ALBUTEROL/IPRATROPIUM 3 ML NEB RESP TX SCH ×4 (00:05→19:03)
[2017-03-29] MEDS: oxyCODONE/ACETAMINOPHEN 5-325 MG TABLET PO PRN ×4 (03:50→21:34)
[2017-03-29] MEDS: CIPROFLOXACIN INJ 400 MG in PREMIX 1 EACH IV SCH ×2 (04:06→15:12)
[2017-03-29 04:39] LABS: Basophils % 0.2 % (0.0-0.8); Eosinophils % 0.2 % (0.00-10.9); Hematocrit 30.1 VOL% (35.7-47.0); Hemoglobin 9.5 GM/DL (12.0-16.0); Immature Granulocytes Absolute 0.06 #; Lymphocytes # 1.2 10*3/uL (1.4-4.0); Lymphocytes % 19.9 % (21.3-54.2); Mean Corpuscular HGB Conc 31.6 GM/DL (32-36); Mean Corpuscular Hemoglobin 30 PG (27-34); Mean Corpuscular Volume 95.6 FL (87-102); Mean Platelet Volume 8.4 FL (9.6-12.0); Monocytes # 0.5 10*3/uL (0.11-0.8); Monocytes % 8.3 % (1.7-12.7); Neutrophils # 4.2 10*3/uL (1.4-7.4); Neutrophils % 70.4 % (38.7-73.9); Platelet Count 135 T/CUMM (130-400); Red Blood Count 3.15 MC/CUMM (3.8-5.5); Red Cell Distribution Width 16.5 % (9.3-17.3); White Blood Count 5.9 T/CUMM (4-12)
[2017-03-29] MEDS: SODIUM CHLORIDE 0.9% 1,000 ML IV SCH ×2 (05:59→10:57)
[2017-03-29] MEDS: LEVOFLOXACIN INJ 500 MG in PREMIX 1 EACH IV SCH (05:59)
[2017-03-29] MEDS: CEFEPIME 500 MG in SODIUM CHLORIDE 0.9% 100 ML IV SCH (06:00)
--- NOTE | 2017-03-29 08:30 | Pulmonology Progress Note ---
Pulmonary - PN: Subj Interval history: Patient is a 57-year-old white lady that has severe COPD. She came in with respiratory failure and was on the ventilator for a while. Her breathing has been doing much better lately. She apparently had a bleeding duodenal ulcer and she has had endoscopy and apparently had this area embolized. Her bleeding is under control now. She is off pressors and is quite comfortable at present. She has some mild abdominal pain but she says is better. Her breathing has been stable. She will probably move to a regular room today. Exam (Progress Note) - Constitutional Vitals: Period Temp Pulse Resp BP Sys/Rodriguez Pulse Ox Last 24 Hr 97.9 F-99.6 F 84-109 13-30 74-112/39-67 93-100 General appearance: no acute distress (She is comfortable sitting up in bed.), under weight - Head Head exam: Present: normal inspection, normocephalic - Eye Eye exam: Present: EOMI. Absent: scleral icterus Pupils: Present: ALECIA - ENT ENT exam: Present: normal exam - Neck Neck exam: Present: normal inspection. Absent: lymphadenopathy, thyromegaly - Respiratory Respiratory exam: Present: decreased breath sounds, prolonged expiratory phase. Absent: wheezes - Cardiovascular Cardiovascular exam: Present: regular rate and rhythm. Absent: gallop, systolic murmur - GI/Abdominal GI/Abdominal exam: Present: hypoactive bowel sounds, tenderness (She has mild tenderness), soft. Absent: distended, guarding, organomegaly, rebound - Extremities Exam Extremities exam: Absent: calf tenderness, edema - Neurological Exam Neurological exam: Present: alert, oriented X3, CN II-XII intact. Absent: motor sensory deficit - Psychiatric Psychiatric exam: Present: normal affect - Skin Skin exam: Present: warm, dry Results - Labs CBC & BMP: 03/29/17 03:42 03/26/17 00:39 Assessment and Plan (1) COPD exacerbation Status: Acute Assessment and plan: The patient had a recent COPD exacerbation and is doing better now. She is tolerating bronchodilator therapy. Current Visit: No (2) Acute and chronic respiratory failure ([id number]) Status: Resolved Assessment and plan: Patient was on the ventilator with respiratory failure but she is much improved now. She seems to be quite comfortable. Current Visit: Yes Qualifiers: Respiratory failure complication: hypoxia and hypercapnia Qualified Code(s) : J96.21 - Acute and chronic respiratory failure with hypoxia; J96.22 - Acute and chronic respiratory failure with hypercapnia (3) Severe protein-calorie malnutrition Status: Acute Assessment and plan: The patient will start p.o. intake. Current Visit: Yes (4) Duodenal ulcer with hemorrhage Problem details: seen and injected on endo but not able to be adequately controlled Status: Acute Assessment and plan: Her GI bleed seems to be under control at present. Her hematocrit is 30 and stable. Current Visit: Yes Specialty Discharge - Follow Up or Referrals Follow up with: Joel Gary MD [Physician] - 05/05/17 12:30 pm (6 week appointment bmp,cbc, chest x ray) Brien Tobias MD [Physician] - 05/12/17 10:00 am (6 weeks)
[2017-03-29] MEDS: PROMETHAZINE 25 MG/1 ML VIAL IM PRN ×3 (10:15→20:14)
[2017-03-29] MEDS: IPRATROPIUM 500 MCG/2.5 ML NEB RESP TX SCH (10:25)
[2017-03-29] MEDS: metroNIDAZOLE INJ 500 MG in PREMIX 1 EACH IV SCH ×3 (10:57→23:31)
[2017-03-29] MEDS: PANTOPRAZOLE 40 MG VIAL IV SCH ×2 (10:58→20:04)
[2017-03-29] MEDS: NYSTATIN 500,000 UNIT/5 ML UDCUP SWISH/SWAL SCH ×4 (10:58→20:04)
[2017-03-29] MEDS: DESITIN 4OZ/NYSTATIN 15 GRAM MIXTURE PASTE TOP SCH ×2 (10:58→20:04)
[2017-03-29] MEDS: VENLAFAXINE XR 37.5 MG CAPSULE PO SCH (10:58)
[2017-03-29] MEDS: GABAPENTIN 300 MG CAPSULE PO SCH ×3 (10:58→20:03)
[2017-03-29] MEDS: CITALOPRAM 20 MG TABLET PO SCH (10:58)
[2017-03-29] MEDS: POLYETHYLENE GLYCOL POWDER 17 GM PACK PO SCH ×2 (10:58→20:04)
[2017-03-29] MEDS: ALPRAZolam 0.5 MG TABLET PO PRN ×2 (10:59→23:35)
--- NOTE | 2017-03-29 11:00 | Event Note ---
Chief complaint duodenal ulcer with bleeding Patient without complaints of pain. She has had no further bleeding reported overnight. Diet was advanced but she felt little full she like to go back to liquid diet so we will move this back to full liquids. Her hematocrit has remained stable. Plans to move the floor noted and I think this is appropriate at this time. Review of systems no shortness of breath or chest pain On exam vital signs are stable as recorded in her record Lids conjunctiva is unremarkable sclerae anicteric she is alert and oriented 3 Neck is supple Lungs clear to auscultation no respiratory distress Heart regular rate and rhythm no murmur rub or gallop, no edema Abdomen soft nondistended nontender no masses no ascites Extremities reveal no clubbing cyanosis or edema all 4 extremities Recommendations: Continue PPI treatment for her duodenal ulcer and observe for recurrent episodes of bleeding. Move her diet back to full liquids hence she may have some functional gastric outlet obstruction from swelling related to her ulcer. Okay to move to the floor from my standpoint.
--- NOTE | 2017-03-29 12:23 | Hospitalist Progress Note ---
Assessment and Plan (1) Duodenal ulcer with hemorrhage Problem details: seen and injected on endo but not able to be adequately controlled Status: Acute Assessment and plan: s/p coiling, hgb stable Current Visit: Yes (2) Acute blood loss anemia Status: Acute Assessment and plan: hgb stable, cont protonix Current Visit: Yes (3) COPD exacerbation Status: Acute Assessment and plan: duonebs and daliresp Current Visit: No (4) Leukocytosis Status: Acute Assessment and plan: resolved, cont cipro and flagyl Current Visit: Yes (5) Fungal esophagitis Status: Acute Assessment and plan: cont diflucan IV Current Visit: Yes (6) Hypotension Status: Acute Assessment and plan: resolved Current Visit: Yes (7) Acute and chronic respiratory failure ([id number]) Status: Resolved Assessment and plan: resolved Current Visit: Yes Qualifiers: Respiratory failure complication: hypoxia and hypercapnia Qualified Code(s) : J96.21 - Acute and chronic respiratory failure with hypoxia; J96.22 - Acute and chronic respiratory failure with hypercapnia Hospitalist: Subjective Interval history: Patient keeps asking me for Dilaudid. I told her that it causes hypotension for her and we should not be treating chronic pain with Dilaudid. I have spoke with her daughter yesterday and she is called and talked to her that she needs to continue with physical therapy. I have also explained to the daughter and she agrees about the Dilaudid. Exam - Constitutional Vitals: Period Temp Pulse Resp BP Sys/Rodriguez Pulse Ox Last 24 Hr 97.1 F-99.6 F 84-109 13-30 74-112/39-68 92-100 Exam: Heart Rate-[tachy] Lungs-[CTAB GI-[+bs soft, NT] Neuro [Motor 5/5], [alert and oriented times 3] psych [depressed mood and affect] General [no acute distress] Results - Labs CBC & BMP: 03/29/17 03:42 03/26/17 00:39 Lab Results: I have reviewed the past 24 hour labs Labs: Blood cultures remain negative Specialty Discharge - Follow Up or Referrals Follow up with: Joel Gary MD [Physician] - 05/05/17 12:30 pm (6 week appointment bmp,cbc, chest x ray) Brien Tobias MD [Physician] - 05/12/17 10:00 am (6 weeks)
[2017-03-29] MEDS: FLUCONAZOLE INJ 100 MG in IV BAG 1 EACH IV SCH (13:32)
[2017-03-29] MEDS: BUDESONIDE/FORMOTEROL 160-4.5 INHALER 6 GM INH SCH (17:45)
[2017-03-30] MEDS: ALBUTEROL/IPRATROPIUM 3 ML NEB RESP TX SCH ×4 (00:08→19:09)
[2017-03-30] MEDS: oxyCODONE/ACETAMINOPHEN 5-325 MG TABLET PO PRN ×4 (03:11→21:20)
[2017-03-30] MEDS: CIPROFLOXACIN INJ 400 MG in PREMIX 1 EACH IV SCH (03:12)
[2017-03-30] MEDS: metroNIDAZOLE INJ 500 MG in PREMIX 1 EACH IV SCH (08:14)
[2017-03-30] MEDS: SODIUM CHLORIDE 0.9% 1,000 ML IV SCH ×2 (08:16→22:10)
[2017-03-30] MEDS: VENLAFAXINE XR 37.5 MG CAPSULE PO SCH (08:17)
[2017-03-30] MEDS: NYSTATIN 500,000 UNIT/5 ML UDCUP SWISH/SWAL SCH ×4 (08:17→21:19)
[2017-03-30] MEDS: POLYETHYLENE GLYCOL POWDER 17 GM PACK PO SCH ×2 (08:17→21:23)
[2017-03-30] MEDS: PANTOPRAZOLE 40 MG VIAL IV SCH ×2 (08:17→21:20)
[2017-03-30] MEDS: CITALOPRAM 20 MG TABLET PO SCH (08:17)
[2017-03-30] MEDS: GABAPENTIN 300 MG CAPSULE PO SCH ×3 (08:17→21:20)
[2017-03-30] MEDS: DESITIN 4OZ/NYSTATIN 15 GRAM MIXTURE PASTE TOP SCH ×2 (08:17→21:23)
[2017-03-30] MEDS: BUDESONIDE/FORMOTEROL 160-4.5 INHALER 6 GM INH SCH (08:18)
--- NOTE | 2017-03-30 09:31 | Hospitalist Progress Note ---
Assessment and Plan (1) Acute and chronic respiratory failure ([id number]) Status: Resolved Current Visit: Yes (2) Leukocytosis Status: Resolved Assessment and plan: Continue ciprofloxacin and flagyl Current Visit: Yes (3) Acute blood loss anemia Status: Acute Assessment and plan: Stable Current Visit: Yes (4) Duodenal ulcer with hemorrhage Problem details: seen and injected on endo but not able to be adequately controlled Status: Acute Assessment and plan: s/p coiling, stable now Current Visit: Yes (5) Fungal esophagitis Status: Acute Assessment and plan: Continue fluconazole Current Visit: Yes (6) Hypotension Status: Resolved Current Visit: Yes Hospitalist: Subjective Interval history: No acute events overnight. Patient still reports some mild pain. Tolerating her full liquid diet well. Exam - Constitutional Vitals: Period Temp Pulse Resp BP Sys/Rodriguez Pulse Ox Last 24 Hr 97.1 F-98.9 F 60-111 16-24 81-104/46-66 92-99 General appearance: normal weight - Head Head exam: Present: normocephalic, atraumatic - Eye Eye exam: Present: EOMI Pupils: Present: ALECIA - ENT ENT exam: Present: normal exam - Neck Neck exam: Present: normal inspection - Respiratory Respiratory exam: Present: clear to auscultation bilaterally. Absent: rhonchi, wheezes - Cardiovascular Cardiovascular exam: Present: regular rate and rhythm - GI/Abdominal GI/Abdominal exam: Present: normal bowel sounds, soft. Absent: tenderness, rebound - Extremities Exam Extremities exam: Present: normal inspection - Back Exam Back exam: Present: normal inspection - Neurological Exam Neurological exam: Present: alert, oriented X3 - Psychiatric Psychiatric exam: Present: normal affect, normal mood - Skin Skin exam: Present: warm, intact Results - Labs CBC & BMP: 03/29/17 03:42 03/26/17 00:39 Specialty Discharge - Follow Up or Referrals Follow up with: Joel Gary MD [Physician] - 05/05/17 12:30 pm (6 week appointment bmp,cbc, chest x ray) Brien Tobias MD [Physician] - 05/12/17 10:00 am (6 weeks)
[2017-03-30] MEDS: ONDANSETRON 4 MG/2 ML VIAL IV PRN ×2 (09:57→16:15)
--- NOTE | 2017-03-30 09:57 | Pulmonology Progress Note ---
Pulmonary - PN: Subj Interval history: Patient is a 57-year-old white lady that has severe COPD. She came in with respiratory failure and was on the ventilator for a while. Her breathing has been doing much better lately. She apparently had a bleeding duodenal ulcer and she has had endoscopy and apparently had this area embolized. Her bleeding is under control now. She is off pressors and is quite comfortable at present. Yesterday she was moved to a regular room she had a fairly good night. She feels like her breathing is better and she has been comfortable. She has not done any ambulating yet. She says her abdomen is feeling better. She is taking in some liquids. Exam (Progress Note) - Constitutional Vitals: Period Temp Pulse Resp BP Sys/Rodriguez Pulse Ox Last 24 Hr 97.1 F-98.9 F 60-111 16-24 81-104/46-66 92-99 Exam: General appearance: no acute distress (She is somewhat chronically ill- appearing but looks comfortable sitting in bed. ), under weight - Head Head exam: Present: normal inspection, normocephalic - Eye Eye exam: Present: EOMI. Absent: scleral icterus Pupils: Present: ALECIA - ENT ENT exam: Present: normal exam - Neck Neck exam: Present: normal inspection. Absent: lymphadenopathy, thyromegaly - Respiratory Respiratory exam: She has fairly good air movement with distant breath sounds but no wheezing now. - Cardiovascular Cardiovascular exam: Present: regular rate and rhythm. Absent: gallop, systolic murmur - GI/Abdominal GI/Abdominal exam: Present: hypoactive bowel sounds, tenderness (She has mild tenderness), soft. Absent: distended, guarding, organomegaly, rebound - Extremities Exam Extremities exam: Absent: calf tenderness, edema - Neurological Exam Neurological exam: Present: alert, oriented X3, CN II-XII intact. Absent: motor sensory deficit - Psychiatric Psychiatric exam: Present: normal affect - Skin Skin exam: Present: warm, dry Results - Labs CBC & BMP: 03/29/17 03:42 03/26/17 00:39 Assessment and Plan (1) COPD exacerbation Status: Acute Assessment and plan: The patient had a recent COPD exacerbation and is doing better now. She is tolerating bronchodilator therapy. She feels like she is breathing fairly well now and will continue treatment. Current Visit: No (2) Acute and chronic respiratory failure ([id number]) Status: Resolved Assessment and plan: Patient was on the ventilator with respiratory failure but she is much improved now. She seems to be quite comfortable. She had a good night in a regular room and is not having any respiratory distress now. Current Visit: Yes Qualifiers: Respiratory failure complication: hypoxia and hypercapnia Qualified Code(s) : J96.21 - Acute and chronic respiratory failure with hypoxia; J96.22 - Acute and chronic respiratory failure with hypercapnia (3) Severe protein-calorie malnutrition Status: Acute Assessment and plan: The patient will start p.o. intake. Current Visit: Yes (4) Duodenal ulcer with hemorrhage Problem details: seen and injected on endo but not able to be adequately controlled Status: Acute Assessment and plan: Her GI bleed seems to be under control at present. Her hematocrit is 30 and stable. She has not been having any signs of bleeding now. Current Visit: Yes Specialty Discharge - Follow Up or Referrals Follow up with: Joel Gary MD [Physician] - 05/05/17 12:30 pm (6 week appointment bmp,cbc, chest x ray) Brien Tobias MD [Physician] - 05/12/17 10:00 am (6 weeks)
--- NOTE | 2017-03-30 12:38 | Event Note ---
Chief complaint duodenal ulcer Patient without complaints of pain in her hematocrit remained stable at 30% she is having no bleeding. She is tolerating her oral liquids without complaints. She does not feel like she is ready to advance to solid food. Will increase her activity today. Reviewed Review of systems she denies shortness of breath chest pain On exam she is alert oriented 3 in no acute distress lying supine in the bed Sclerae anicteric lids conjunctiva is unremarkable Neck is supple no JVD no thyromegaly Lungs clear to auscultation no respiratory distress Abdomen soft nondistended nontender no mass no hepatosplenomegaly Heart regular rate and rhythm no murmur rub or gallop no edema Cyanosis or edema all 4 extremities. Recommendations: 1. Continue PPI treatment and observe for evidence of bleeding. Increase diet as tolerated. Dr. Tobias will resume care tomorrow.
[2017-03-30] MEDS: metroNIDAZOLE 500 MG TABLET PO SCH ×2 (14:00→22:09)
[2017-03-30] MEDS: FLUCONAZOLE INJ 100 MG in IV BAG 1 EACH IV SCH (14:05)
[2017-03-30] MEDS: PROMETHAZINE 25 MG/1 ML VIAL IM PRN (19:51)
[2017-03-30] MEDS: CIPROFLOXACIN 500 MG TABLET PO SCH (21:19)
[2017-03-30] MEDS: ALPRAZolam 0.5 MG TABLET PO PRN (22:09)
[2017-03-31] MEDS: ALBUTEROL/IPRATROPIUM 3 ML NEB RESP TX SCH ×2 (00:15→07:00)
[2017-03-31] MEDS: metroNIDAZOLE 500 MG TABLET PO SCH (05:26)
[2017-03-31] MEDS: oxyCODONE/ACETAMINOPHEN 5-325 MG TABLET PO PRN (05:26)
--- NOTE | 2017-03-31 06:52 | Gastrointestinal Progress Note ---
Assessment and Plan (1) Duodenal ulcer with hemorrhage Problem details: seen and injected on endo but not able to be adequately controlled Status: Acute Assessment and plan: This proved to be the patient's source for bleeding, this was a sizable 2.5 cm ulcer just past the pyloric channel in the proximal duodenum. This did have a pigmented spot indicative of potential bleeding vessel. Margins were biopsied, biopsies were taken the gastric antrum and body to look for Helicobacter pylori , this may be NSAID induced. She did not appear to be actively bleeding. Agree with Protonix twice daily and await biopsy results. If the patient is able to eat we can contact her with these biopsies when they become available. 03/25/17--Biopsies are pending but I doubt this will be a malignancy. Patient will need to avoid NSAIDs for the next month while this is healing up. Her hematocrit appears to be stable. She has a prescription for the Protonix twice daily as well as fluconazole for her fungal esophagitis. She is stable enough to be able to be discharged in my opinion at this time. The GI workup is complete I will sign off at this time, but will call the patient when the biopsies become available if they are not available at the time of discharge. 03/26/17--the patient is gotten 1 of the 2 units written for yesterday. She is still requiring low doses of pressors. We will need to get a tagged red blood cell scan to see if she continues to bleed and if still bleeding she will need arteriography to embolize either the branch of the gastroduodenal artery versus the superior pancreaticoduodenal artery branch. Unfortunately I do not believe that this lesion is going to be amenable to endoscopic treatment. I can tell this is quite a large vessel we are dealing with and the positioning is not optimal for placement of endoclip. Surgery may also become necessary as well for resection of the duodenal bulb if embolization is inadequate. 03/27/17--hemoglobin is certainly improved as of the transfusions given yesterday. I suspect that the artery is been successfully embolized as results of Dr. Yeung coiling of the vessel yesterday during interventional radiology arteriography. The patient had been mildly septic the day prior although her white count had come down some and I suspect this embolization made increase the bacterial translocation across the intestine which may need to be covered with antibiotics. I am checking a CBC formally to get a white blood cell count and if this is elevated I would consider this presumptive evidence along with the patient's low-grade fevers for increased bacterial translocation would suggest use of medication such as Zosyn cover her for gram-negative rods while she is recovering from the embolization. This should allow us to be able to wean her off the pressors. I will order blood cultures at this time presumptively as well. 03/28/17--patient's hematocrit is drifted down from 34% down to 28%. If it drops much further we need to consider repeat transfusion. She really has not had much stool out in the last several days which is a good sign that there is not a lot of blood coming through as this tends to be a fairly good cathartic. She is eating some of her tray. Given the ulcer and recent embolization I suspected that she might have a segment of her duodenum that had some blood flow compromise and bacterial translocation and so started the patient on a combination of Cipro and Flagyl (penicillin allergic) which is dropped the patient's white blood cell count hopefully we will be able to wean her off the pressors today without having to transfuse her first. If she can't be weaned today and her crit is lower tomorrow would definitely give transfusion at that point. 03/31/17-- The patient's hematocrit has remained at about 30% over the weekend. She is doing much better now, the pain is down to 7 out of 10 in intensity and although she feels nauseated she can still eat. She may need some time building up in the swing bed but I am confident she could probably leave the hospital at this point possibly on oral antibiotics. Will sign off the case at this point. Please contact me if further input is needed. Current Visit: Yes (2) Gastrointestinal hemorrhage with melena Status: Acute Assessment and plan: This patient has a combination of severe epigastric pain and dark stools that have been on and off for several weeks and also has a history of gastric ulcer some 20 years ago. She certainly could have recurrence of this which has been worsened during this admission by exposure to Lovenox. There is certainly guaiac positive stool and physical examination and I strongly suspect there may be gastric ulcers, erosions but cannot rule out gastric cancer or AVMs in this setting. We will perform upper endoscopy and given the fact the patient has not had colorectal cancer screening in many years will likely add on a colonoscopy seeing is her medical rate is dropped down to 20% during this admission. She could potentially be discharged on Friday if no cancer no active bleeding or discovered. Seeing as she is eating at this point I am going to advance her to oral Protonix twice daily to suppress the acidity in her stomach. This should help out with pain and potential ulcer disease we will check for Helicobacter pylori during upper endoscopy. She does not know if she has a history of polyps. The patient understands the risks of the procedure include but are not limited to: Bleeding, infection, perforation, cardiac and pulmonary compromise. 03/23/17--this patient may have a recurrence of her gastric ulcer, there may be gastritis or other cause for her anemia. Given the dark stools a suspect probably the former. She is due to undergo colonoscopy before she leaves at the same time, due to the extremely low hematocrit. It is many as 10% of cases with iron deficiency anemia there are 2 sources causing the problem. She may be able to be discharged after the upper and lower endoscopies tomorrow. 03/24/17--the patient's colonoscopy was essentially normal where is the upper endoscopy showed a 2.5 cm in the proximal duodenal bulb/pyloric channel which appeared to be the source the patient's bleeding. Mild gastritis and some fungal esophagitis were also noticed incidentally. Will start patient on fluconazole in addition to the twice daily pantoprazole. If her hematocrit remains stable she is certainly welcome to be followed up in the clinic. I have written her prescription which I have paperclip to the front of the chart for use as an outpatient. Fungal esophagitis will require 10 days worth of the fluconazole. This as well as the ulcer thought to be the source the patient's anorexia/pain. 03/25/17--The patient is doing well with only minimal epigastric tenderness. Her appetite is picking up already. She has prescriptions written for the Protonix and fluconazole and her chart. She is safe for discharge in my opinion today. I would like her to follow-up with me in 6 weeks, so I can check her weight and hematocrit at that time. If biopsies are not back this afternoon by the time she is discharged certainly would not hold her here awaiting these results. I will contact her when these become available. 03/26/17--We will continue to watch her on clear liquids for the present time. Observe in the ICU until we can establish her stability before sending her upstairs again. Agree with switching over her medications to IV to ensure these are not loss with emesis. 03/27/17--I think we can advance her to a full liquid diet to see how she tolerates this. She may have significant nausea and vomiting but I would like to see how she does with this higher calorie full liquid diet. 03/28/17--We may go ahead and give this patient a little bit of MiraLAX each day to try and flush out her bowel movements so we can follow the color to determine if she still bleeding. 03/31/17--Her hematocrit is stable. This patient had a duodenal ulcer with visible vessel which has now been treated with endoscopic injection and then embolic treatment by interventional radiology. She needs to maximize her caloric intake and follow-up with me in 6 weeks so I can check her hematocrit and keep tabs on her weight. No Helicobacter pylori present. She needs to avoid NSAIDs and continue her Protonix twice daily for the next 2 months. Current Visit: Yes (3) Generalized abdominal pain Status: Acute Assessment and plan: Most of the pains for this patient are in the epigastric region which would tend to point towards peptic ulcer disease or erosive disease. Some of the pain is in the bilateral lower quadrants and I suspect this may be due to constipation induced irritation. Physical examination she does have hard stools , we cannot rule out a lower GI bleeding source and so we will add a colonoscopy as previously mentioned to the upper endoscopy also to be done on 03/24/17. 03/23/17--The abdominal pain has resolved completely at this point. We will continue to observe. 03/24/17--the colonoscopy demonstrated some fairly severe left-sided diverticulosis but no evidence of diverticulitis or mass or polyp. Generalized abdominal pain may be associated with constipation/IBS. 03/25/17--Overall this pain appears improved. Continue low level laxatives with MiraLAX as needed for the underlying constipation. 03/26/17--I doubt that we will need any laxatives as blood is wonderful cathartic. Observe for now. Fortunately her white blood cell count is come back to its previous range. I do not believe there was a perforation. 03/27/17--No further episodes of melena we continue to observe the patient's hemoglobin is improved but still showing a slow drift downward. Checking now for low-grade sepsis given the patient's inability to wean off of pressors. 03/28/17--Improving. 03/31/17--Improving over time. Current Visit: Yes (4) Severe protein-calorie malnutrition Status: Acute Assessment and plan: Not sure that I would call her malnutrition severe she does have an albumin of 2.3 and she does have poor p.o. intake. We will check and make sure she does not have colon cancer and I suspect that is her gastritis is treated she will improve as far as her appetite. She needs to steer clear of NSAIDs for the future if at all possible. Again Protonix 40 mg twice daily has been initiated to help out with the underlying inflammation in the stomach. Steroids have to be continued for the present time because of her underlying COPD. 03/23/17--This is another reason colonoscopy is being done to look for a cause for the patient's malnutrition. Upper endoscopy could certainly result in decreased appetite which could have a negative impact on her p.o. intake as well. EGD and colonoscopy tomorrow planned. 03/24/17--I believe this is probably a consequence of the ulcer and reflux/ fungal esophagitis. We will continue to observe as these are treated appropriately. We will see how she does with a diet in-house. 03/25/17--The patient was again advised to drink 4 ounces of water after taking her inhaled steroid doses in order to cut back on the fungal esophagitis in the future. Will follow her up to see if her weight is improved by the time she comes back into the office in 6 weeks. Thank you for the opportunity see this very pleasant lady, will be signing off at this time. 03/26/17--We may start boost or Ensure supplements tomorrow once we ensure the patient does not need to go to surgery. 03/27/17--Started on the full liquid diet now. 03/28/17--Leave on the full liquid diet for the present. She seems to be tolerating this adequately. This could be advanced over the weekend as GI coverage feels would be helpful. 03/31/17--Patient can be switched over to a soft mechanical diet, she is likely to go to the swing bed today, would suggest Protonix twice daily for the next 2 months and then antibiotics to complete a full 7 day course--as well as soft mechanical diet with supplements 3 times daily to help with her weight. Current Visit: Yes Gastroenterology - PN: Subj Interval history: No new complaints, still mildly nauseated with food intake, patient feels fatigued and is ready to go to swing bed. Her nausea does not prevent her from eating, she has been able to handle small amounts of solids. Her pain is rated as a 7 out of 10 in intensity. Exam (Progress Note) - Constitutional Vitals: Period Temp Pulse Resp BP Sys/Rodriguez Pulse Ox Last 24 Hr 98.1 F-98.7 F 60-112 17-22 90-108/56-69 95-100 General appearance: no acute distress - Head Head exam: Present: normocephalic - Eye Eye exam: Present: EOMI - Respiratory Respiratory exam: Present: clear to auscultation bilaterally - Cardiovascular Cardiovascular exam: Present: regular rate and rhythm - GI/Abdominal GI/Abdominal exam: Present: normal bowel sounds, tenderness (Epigastric tenderness), soft. Absent: distended, guarding, rebound - Extremities Exam Extremities exam: Absent: edema - Neurological Exam Neurological exam: Present: alert, oriented X3 - Psychiatric Psychiatric exam: Present: normal affect, normal mood - Skin Skin exam: Present: warm Results - Labs CBC & BMP: 03/29/17 03:42 03/26/17 00:39 Specialty Discharge - Follow Up or Referrals Follow up with: Joel Gary MD [Physician] - 05/05/17 12:30 pm (6 week appointment bmp,cbc, chest x ray) Brien Tobias MD [Physician] - 05/12/17 10:00 am (6 weeks)
--- NOTE | 2017-03-31 08:30 | Pulmonology Progress Note ---
Pulmonary - PN: Subj Interval history: This 56-year-old white female has severe COPD. She is on home oxygen. An acute exacerbation over week that got worse. Was intubated and admitted yesterday. This morning she is much more alert. ABGs much improved. We will start CPAP and see if we can get her extubated. 03/17/2017 patient did well with CPAP yesterday. PCO2 is now down to normal. Will try to get her extubated this morning 03/18/2017 patient was extubated yesterday without difficulty. She is taking clear liquids for supper. She has some mild nausea this morning otherwise feeling better. She has grown Klebsiella and Pseudomonas from bronchial washings. She is well covered with cefepime and Levaquin. She could go to the floor today. Theophylline level is low. Stopping Aminophyllin. Continuing Daliresp. Need to watch that because it can cause some nausea. 03/19/2017 patient now on 5 E. She is coughing a good bit and short of breath with effort but is better. She is alert and I think we can start reducing her medications. Probably still needs IV meds another day or 2. 03/20/2017 patient is feeling a little better. Still having a good bit of coughing. I do think she needs IV medication for at least another 1-2 days from now 03/21/2017 patient feeling much better but her hematocrit has dropped to 20. She has a history of anemia requiring blood transfusions following surgery in the past. She does not know the cause of the anemia. I have ordered anemia profile. She is to get blood today. She may need a GI endoscopy set up if stools are positive. Her COPD is improved. I have decreased her steroids. Probably could change to oral medications in another day or so. 03/24/2017 patient is much better. She has been transfused and her hematocrit is around 30. She is set up for EGD and colonoscopy today. She does have severe COPD and has recently been mechanically ventilated. Will need close watch by anesthesia during procedure. 03/25/2017 GI evaluation has indicated a 2.5 cm duodenal ulcer. This is likely to be the cause of her blood loss. She is now on Protonix twice a day. Will need follow-up CBCs. I have advised her to watch her stools for signs of blood mainly melena. I will see her back in a month or so for her COPD and we can check a CBC at that time. I did stop her prednisone. She is not wheezing. Prednisone increases the risk for ulcers as well. 03/26/2017 patient was bleeding yesterday. Taken back to endoscopy lab and had the ulcer injected with epinephrine. It appears that she still may be bleeding. She is on her second unit of blood. Dr. Tobias is managing this. Patient may require surgery. Her COPD appears to be stable at present. 03/27/2017 patient does not appear to be bleeding further. She has had coils to stop the bleeding. She is not having fever. She does have some nausea. I had started Daliresp on admission and it could be adding to the nausea. Her lungs are stable and I will stop the Daliresp. Defer to GI as far as restarting antibiotics. Her white blood count this morning is 13,100. She was on antibiotics for a good while earlier this admission for her COPD exacerbation and Klebsiella/Pseudomonas in sputum. 03/28/2017 systolic blood pressure around 90 and she is on some Jeff-Synephrine. Patient is off steroids for about 3 days now. COPD is stable. Still having some abdominal pain. White blood count down to normal. Patient with severe COPD that came in with exacerbation requiring mechanical ventilation. Developed an ulcer with a GI bleed. On antibiotics for sepsis which may be due to translocation of bacteria through the ulcer. 03/31/2017 patient now on the durand. She is eating. Tolerating low flow nasal oxygen. Plans are for her to go to a swing bed for physical therapy. I would favor stopping both her Diflucan and Cipro prior to discharge. I went ahead and stopped the Diflucan. Defer to GI on the Cipro. She has severe COPD and I will follow her in the clinic in about a month. Exam (Progress Note) - Constitutional Vitals: Period Temp Pulse Resp BP Sys/Rodriguez Pulse Ox Last 24 Hr 98.1 F-98.7 F 92-112 16-22 92-108/58-69 95-100 Exam: Patient's alert and responsive. Seems oriented. Wearing nasal oxygen. Vital signs are normal, except systolic blood pressure around 90. Pupils react to light. Neck is supple. Chest reveals prolonged expiratory phase but I do not hear any wheezing today, she does have some basilar crackles. Heart normal rate rhythm no murmurs. Abdomen soft nontender no masses. Bowel sounds present. Extremities no clubbing cyanosis edema. Results - Labs CBC & BMP: 03/29/17 03:42 03/26/17 00:39 Lab Results: I have reviewed the past 24 hour labs Assessment and Plan (1) Acute and chronic respiratory failure ([id number]) Status: Resolved Assessment and plan: She has been on oxygen. Her PCO2 runs around 60 when she is at her baseline. It was up to 80. She may be difficult to wean. 03/16/2017 ABGs improved. PCO2 down to 44. Needs a little Diamox. Reduce FiO2. Start weaning today. May be able to get her extubated today but probably will take another day. 03/17/2017 PCO2 down to normal. Should be able to extubate today. 03/18/2017 patient has done well postextubation. Continuing low flow oxygen. 03/19/2017 Will reduce Solu-Medrol a little. Still needs oxygen. 03/20/2017 patient is off the ventilator. Still requiring oxygen. She had both hypercarbic and hypoxemic acute on chronic respiratory failure. They are improved 03/21/2017 patient doing well off the ventilator. She is on nasal oxygen. The severe anemia is aggravating things. She has oxygen at home but has asked for a different set up. Social work is looking into that. If she is discharged this weekend I could see her in the clinic in about 2 weeks for follow-up. 03/24/2017 she is over the acute episode of respiratory failure. Still requiring some nasal oxygen. She does tend to retain carbon dioxide with sedation. 03/25/2017 acute respiratory failure is resolved. 03/26/2017 she is not in respiratory failure at present. However if she does have surgery for the GI bleeding she likely will need mechanical ventilation for a couple of days postop. 03/27/2017 O2 sats look good on nasal oxygen. Acute respiratory failure has resolved. She has chronic need for oxygen, and chronic ventilatory failure. 03/28/2017 requiring low flow oxygen. Respiratory failure resolved. 03/31/2017 patient ready for discharge on nasal oxygen. Current Visit: Yes Qualifiers: Respiratory failure complication: hypoxia and hypercapnia Qualified Code(s) : J96.21 - Acute and chronic respiratory failure with hypoxia; J96.22 - Acute and chronic respiratory failure with hypercapnia (2) Severe protein-calorie malnutrition Status: Acute Assessment and plan: We will need NG tube feedings 03/16/2017 continuing NG feeding 03/17/2017 continuing management per NG tube. 03/18/2017 progress diet orally. 03/19/2017 progressing with diet. 03/20/2017 patient eating a little better. 03/21/2017 appetite is better. 03/25/2017 she is eating better. Certainly an ulcer might have been a part of the cause for this. 03/26/2017 nutrition is being held up by her ulcer. 03/27/2017 starting back on full liquids. 03/28/2017 taking some oral liquids 03/31/2017 starting to eat better. Again I favor stopping Diflucan and Cipro with both of these may keep her from developing her appetite again. Current Visit: Yes (3) COPD exacerbation Status: Acute Assessment and plan: Bronchodilator steroids and empiric antibiotics. Since she has severe COPD would go with Levaquin plus cefepime. 03/16/2017 continuing intravenous corticosteroids and antibiotics. Broad- spectrum due to her COPD. Continuing bronchodilators. 03/17/2017 no active bronchospasm. Continue current medications. 03/18/2017 bronchospasm improving. Reduce steroids. We have also added Daliresp for long-term treatment. Watch for nausea. 03/19/2017 reduce steroids today. Probably needs another day or 2 of IV medications. 03/20/2017 still having exacerbation. Keep on IV steroids for now as well as IV antibiotics. 03/21/2017 have reduce steroids a little. Could go to oral medications tomorrow. 03/24/2017 tapering steroids. About ready for discharge from pulmonary standpoint. Will need to be watched overnight after scopes. 03/25/2017 she is doing much better. Antibiotics and prednisone can be stopped. She had Flor esophagitis and does need Diflucan for a few more days. 03/26/2017 she is about at her baseline status for as the COPD is concerned. 03/27/2017 has severe COPD but is back to her baseline. 03/28/2017 no wheezing. Continuing bronchodilators. 626 and 17 acute bronchitis has resolved. Continue her baseline medications. Current Visit: No (4) Duodenal ulcer with hemorrhage Problem details: seen and injected on endo but not able to be adequately controlled Status: Acute Assessment and plan: Does not appear to be actively bleeding. She has been off steroids for 3 days now. Follow CBCs. GI is following 03/31/2017 status post treatment with endoscopy and then embolized coils. No further bleeding. Still having mild abdominal pain. Starting to get appetite back. Trying to reduce medications to improve her appetite Current Visit: Yes Specialty Discharge - Follow Up or Referrals Follow up with: Joel Gary MD [Physician] - 05/05/17 12:30 pm (6 week appointment bmp,cbc, chest x ray) Brien Tobias MD [Physician] - 05/12/17 10:00 am (6 weeks)
[2017-03-31] MEDS: GABAPENTIN 300 MG CAPSULE PO SCH (08:41)
[2017-03-31] MEDS: PANTOPRAZOLE 40 MG VIAL IV SCH (08:42)
[2017-03-31] MEDS: CIPROFLOXACIN 500 MG TABLET PO SCH (08:42)
[2017-03-31] MEDS: POLYETHYLENE GLYCOL POWDER 17 GM PACK PO SCH (08:42)
[2017-03-31] MEDS: VENLAFAXINE XR 37.5 MG CAPSULE PO SCH (08:42)
[2017-03-31] MEDS: CITALOPRAM 20 MG TABLET PO SCH (08:42)
[2017-03-31] MEDS: NYSTATIN 500,000 UNIT/5 ML UDCUP SWISH/SWAL SCH ×2 (08:42→13:20)
[2017-03-31] MEDS: DESITIN 4OZ/NYSTATIN 15 GRAM MIXTURE PASTE TOP SCH (09:21)
[2017-03-31 11:00] VITALS: BP 90/56
--- NOTE | 2017-03-31 11:52 | Discharge Summary ---
Hospital Course - Hospital Course Hospital Course: History of present illness: Ms. Morris is a 56 year old female with past medical history of COPD, severe by FEV1 recently, depression/anxiety that presented with a chief complaint of shortness of breath x 1 week duration. She saw Dr Gary in clinic , was treated with no relief of symptoms. Her illness progressively worsened, went to [facility] emergency department where she was found to be hypoxemic and hypercapnic. She was transferred to [facility] for higher level of care. Upon arrival, she was subsequently intubated based on her gases and dyspnea and admitted to the ICU. Dr Gary saw in consultation. She was treated with IV antibiotics, solumedrol and breathing treatments. She was subsequently extubated and transferred to the floor. Sputum grew Klebsiella and pseudomonas. During admission, she became anemic, her stool was positive 4+ occult blood. She received 2units of packed cells and GI was consulted. She had a normal Colonoscopy but EGD showed a 2.5 cm in the proximal duodenal bulb/ pyloric channel which appeared to be the source the patient's bleeding. Mild gastritis and some fungal esophagitis were also noticed incidentally. She experienced another drop in her H/H. She underwent coiling by interventional radiology with good results. She was started on fluconazole x 10days in addition to the twice daily pantoprazole. The patient is currently doing well with only minimal epigastric tenderness. GI wants to follow up in 6weeks. Dietititian was also consulted for her severe protein-calorie malnutrition and we followed their recommendations. Pulm subsequently stopped her steroids because she was no longer wheezing. Pulgrayson wants to see her in 1month as well. Her H/H has remained stable,her vitals are decent. She has now reached maximal benefit of inpatient stay and will be discharged to swing bed for rehab. - Time spent with patient Time with patient DS: Greater than 30 minutes (40) Diagnosis - Discharge Diagnosis (1) Acute and chronic respiratory failure ([id number]) Status: Resolved (2) Leukocytosis Status: Resolved (3) Acute blood loss anemia Status: Resolved (4) Duodenal ulcer with hemorrhage Status: Resolved (5) Fungal esophagitis Status: Resolved (6) Hypotension Status: Resolved Specialty Discharge - Follow Up or Referrals Follow up with: Joel Gary MD [Physician] - 05/05/17 12:30 pm (4 week appointment bmp,cbc, chest x ray) Brien Tobias MD [Physician] - 05/12/17 10:00 am (6 weeks) Discharge Plan - Discharge Data Disposition: Swing Bed, Hos Based, [facility] Condition at Discharge: Stable Discharge Diet: advance to your usual diet, other (high protein) Activity: as per physical therapy Hygiene: no restrictions Weight Bearing at Discharge: weight bear as tolerated Contact your physician if you experience:: fever over 101, Bleeding - Discharge Medications New Pantoprazole Tab [Protonix Tab] 40 mg PO BID #60 tablet Venlafaxine Xr [Effexor XR] 37.5 mg PO DAILY #30 capsule Continue Gabapentin 600 mg PO TID Cyproheptadine HCl 4 mg PO TID Citalopram [CeleXA] 40 mg PO DAILY Albuterol/Ipratropium Neb [Duoneb] 3 ml RESP TX RT Q6H PRN PRN Reason: Shortness Of Breath/Wheezing Albuterol Sulfate [Proair HFA] 2 puff INH Q4H PRN PRN Reason: Shortness Of Breath/Wheezing Oxycodone HCl/Acetaminophen [Percocet 10-325 mg Tablet] 1 each PO Q6H #60 tablet Budesonide/Formoterol 160-4.5 [Symbicort 160-4.5] 2 puff INH DAILY ALPRAZolam [Xanax] 0.5 mg PO TID #90 tablet Discontinued predniSONE TAB [PredniSONE] 10 mg PO BID - Follow Up or Referral Follow Up: Joel Gary MD [Physician] - 05/05/17 12:30 pm (4 week appointment bmp,cbc, chest x ray) Brien Tobias MD [Physician] - 05/12/17 10:00 am (6 weeks) - Forms/Instructions Instructions: Peptic Ulcer (DC), Gastrointestinal Bleeding (DC), Chronic Obstructive Pulmonary Disease (DC), Anemia (DC) Exam - Constitutional Vitals: Period Temp Pulse Resp BP Sys/Rodriguez Pulse Ox Last 24 Hr 97.7 F-98.7 F 92-112 16-22 90-108/56-69 93-100 General appearance: normal weight - Head Head exam: Present: normal inspection - Eye Eye exam: Present: EOMI Pupils: Present: ALECIA - ENT ENT exam: Present: normal exam - Neck Neck exam: Present: normal inspection - Respiratory Respiratory exam: Present: clear to auscultation bilaterally. Absent: wheezes - Cardiovascular Cardiovascular exam: Present: regular rate and rhythm - GI/Abdominal GI/Abdominal exam: Present: normal bowel sounds, soft - Extremities Exam Extremities exam: Present: normal inspection - Back Exam Back exam: Present: normal inspection - Neurological Exam Neurological exam: Present: alert, oriented X3 - Psychiatric Psychiatric exam: Present: normal affect, normal mood - Skin Skin exam: Present: warm, intact Discharge Results Procedures and tests throughout hospitalization: Pending Orders 03/20/17 11:15 Occult Blood, Stool Routine 03/22/17 20:40 Occult Blood, Stool Routine 03/27/17 07:28 Blood Culture Routine 03/30/17 11:51 Sputum Culture and Gram Stain Stat Labs on day of discharge: Preliminary micro results at discharge 03/27/17 07:28 Blood Culture - Preliminary Blood No growth at 3 days 03/27/17 07:28 Blood Culture - Preliminary Blood No growth at 3 days DS: Provider Date of admission: 03/14/17 23:22 Primary care physician: . 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 Gary Date Notified: 03/15/17 Time Notified: 07:30 03/16/17 08:47 Consult to Dietitian [CONS] Routine Reason for Dietitian: Dietary Consult Consult Comment: malnutrition 03/18/17 08:00 Consult to Physical Therapy [CONS] Routine Reason for Physical Therapy: Evaluate and Treat 03/22/17 09:27 Consult to Anesthesiology [CONS] Routine Consulting Provider: Reason for Anesthesiology: Pre-op Clearance 03/25/17 09:51 Consult to Case Mgmt/Social Srvs [CONS] Routine Reason for Case Mgmt/Social Srvs: [facility]hab Consult [phone] 03/25/17 14:48 Consult to Anesthesiology [CONS] Routine Consulting Provider: Reason for Anesthesiology: Pre-op Clearance 03/26/17 08:17 Consult to Physician [CONS] Routine Comment: bleeding duodenal ulcer Consulting Provider: Sánchez Mcwilliams III. Consult Notification Comment: dr hung called dr mcwilliams herself Discharging clinician: Dluce King MD
[2017-03-31] MEDS: BUDESONIDE/FORMOTEROL 160-4.5 INHALER 6 GM INH SCH (13:20)
== END 2017-03-31 13:00 | disposition swing bed (61) | DRG 981 ==
LOC: N.ED 22:42 → N.EDINP 23:22 → SUATTDRO 23:22 → N.ICU 03-15 00:40 → N.5E 03-18 18:02 → N.CC 03-25 12:06 → N.5E 03-29 15:41
PROVIDERS: ADMIT Student in an Organized Health Care Education/Training Program; ATTEND Internal Medicine
PROC: IRAGMES (2017-03-26 13:35)

== ENCOUNTER 2017-12-20 23:47 | Inpatient (IN) ==
[2017-12-21] MEDS ORDERED: LEVOFLOXACIN INJ 150 ML IV ONE (01:17)
[2017-12-21] MEDS: LEVOFLOXACIN INJ 750 MG in PREMIX 1 EACH IV SCH (01:22)
[2017-12-21 01:39] LABS: Apearance,Urine CLEAR (Clear); Bacteria,Urine Occasional /HPF (Few); Bilirubin,Urine Negative (Negative); Blood, Urine Small mg/dL (Negative); Glucose,Urine (UA) Negative (Negative); Hyaline Casts,Urine 4 /LPF (0-3); Ketones,Urine Negative (Negative); Nitrite,Urine Negative (Negative); Protein,Urine Negative; RBC,Urine 1 /HPF (0-4); Urine Color Yellow (Yellow); Urine Urobilinogen < 2.0 EU/DL (0.2-1.0); WBC,Urine <1 /HPF (0-6)
[2017-12-21 01:56] LABS: Lactic Acid 3.1 MMOL/L (0.4-2.0)
[2017-12-21] MEDS: VANCOMYCIN INJ 750 MG in SODIUM CHLORIDE 0.9% 250 ML IV SCH ×3 (02:03→18:15)
[2017-12-21] MEDS ORDERED: ALBUTEROL 2.5 MG/3 ML NEB RESP TX PRN (03:02)
[2017-12-21] MEDS ORDERED: ACETAMINOPHEN 325 MG TABLET PO PRN (03:22)
[2017-12-21] MEDS ORDERED: ONDANSETRON 4 MG/2 ML VIAL IV PRN (03:22)
[2017-12-21] MEDS: methylPREDNISolone SOD SUC 40 MG/1 ML VIAL IV SCH ×4 (05:10→20:37)
[2017-12-21] MEDS: SODIUM CHLORIDE 0.9% 1,000 ML IV SCH (05:10)
[2017-12-21 05:55] LABS: Alanine Aminotransferase 27 U/L (13-56); Albumin 2.2 G/DL (3.4-5.0); Alkaline Phosphatase 75 U/L (45-117); Aspartate Amino Transferase 32 U/L (0-37); Bilirubin,Total < 0.39 MG/DL (0.2-1.0); Blood Urea Nitrogen 13 MG/DL (7-18); Calcium 7.9 MG/DL (8.5-10.1); Glucose 100 MG/DL (74-106); Osmolality,Calculated 282.1 MOS/KG (273-304); Potassium 3.9 MMOL/L (3.5-5.1); Sodium 142 MMOL/L (136-145); Total Protein 4.9 G/DL (6.4-8.3)
[2017-12-21 06:05] LABS: Basophils # 0.1 10*3/uL (0.0-0.2); Basophils % 0.2 % (0.0-0.8); Hemoglobin 9.1 GM/DL (12.0-16.0); Immature Granulocytes % 5.8 %; Immature Granulocytes Absolute 2.01 #; Lymphocytes # 0.3 10*3/uL (1.4-4.0); Lymphocytes % 0.9 % (21.3-54.2); Mean Corpuscular HGB Conc 28.4 GM/DL (32-36); Mean Corpuscular Hemoglobin 28 PG (27-34); Mean Corpuscular Volume 97.3 FL (87-102); Monocytes # 0.5 10*3/uL (0.11-0.8); Monocytes % 1.3 % (1.7-12.7); Neutrophils # 32.1 10*3/uL (1.4-7.4); Neutrophils % 91.8 % (38.7-73.9); Platelet Count 213 T/CUMM (130-400); Red Blood Count 3.29 MC/CUMM (3.8-5.5); Red Cell Distribution Width 16.1 % (9.3-17.3); White Blood Count 34.9 T/CUMM (4-12)
[2017-12-21 06:20] LABS: Band Neutrophils 3 % (0-10); Giant Platelets Few; Hypochromasia 1+; Ovalocytes Slight; Platelet Estimate Adequate; Segmented Neutrophils 97 % (50-85); Total Cells Counted 100
[2017-12-21] MEDS: ALBUTEROL/IPRATROPIUM 3 ML NEB RESP TX SCH ×3 (07:15→19:25)
[2017-12-21] MEDS ORDERED: PANTOPRAZOLE 40 MG TABLET PO SCH (09:00)
[2017-12-21] MEDS: ENOXAPARIN 40 MG/0.4 ML SYRINGE SUBCUT SCH (09:56)
[2017-12-21] MEDS: PANTOPRAZOLE 40 MG TABLET PO SCH ×2 (09:56→20:36)
[2017-12-21] MEDS: MONTELUKAST 10 MG TABLET PO SCH (14:13)
[2017-12-21] MEDS: oxyCODONE/ACETAMINOPHEN 5-325 MG TABLET PO PRN (18:28)
[2017-12-22] MEDS: SODIUM CHLORIDE 0.9% 1,000 ML IV SCH (00:10)
[2017-12-22] MEDS: LEVOFLOXACIN INJ 750 MG in PREMIX 1 EACH IV SCH (00:10)
[2017-12-22] MEDS: ALBUTEROL/IPRATROPIUM 3 ML NEB RESP TX SCH ×4 (00:27→19:05)
[2017-12-22] MEDS: oxyCODONE/ACETAMINOPHEN 5-325 MG TABLET PO PRN ×2 (00:42→08:58)
[2017-12-22] MEDS: VANCOMYCIN INJ 750 MG in SODIUM CHLORIDE 0.9% 250 ML IV SCH ×2 (02:00→09:04)
[2017-12-22] MEDS ORDERED: ALPRAZolam 0.5 MG TABLET PO ONE (02:00)
[2017-12-22] MEDS: methylPREDNISolone SOD SUC 40 MG/1 ML VIAL IV SCH ×4 (02:31→21:42)
[2017-12-22] MEDS: CITALOPRAM 40 MG TABLET PO SCH (08:57)
[2017-12-22] MEDS: PANTOPRAZOLE 40 MG TABLET PO SCH ×2 (08:57→21:43)
[2017-12-22] MEDS: GABAPENTIN 300 MG CAPSULE PO SCH ×3 (08:57→21:43)
[2017-12-22] MEDS: MONTELUKAST 10 MG TABLET PO SCH (08:57)
[2017-12-22] MEDS: ENOXAPARIN 40 MG/0.4 ML SYRINGE SUBCUT SCH (08:58)
[2017-12-22] MEDS ORDERED: ALPRAZolam 0.5 MG TABLET PO SCH ×2 (09:00)
[2017-12-22] MEDS: CEFEPIME 1,000 MG in SYRINGE 1 EACH IV SCH ×2 (10:26→21:39)
[2017-12-22] MEDS: ALPRAZolam 0.5 MG TABLET PO SCH ×3 (15:41→21:44)
[2017-12-22] MEDS ORDERED: oxyCODONE/ACETAMINOPHEN 5-325 MG TABLET PO PRN (17:00)
[2017-12-22] MEDS ORDERED: VANCOMYCIN INJ 750 MG in SODIUM CHLORIDE 0.9% 250 ML IV SCH (18:00)
[2017-12-23] MEDS: ALBUTEROL/IPRATROPIUM 3 ML NEB RESP TX SCH ×5 (00:30→19:27)
[2017-12-23] MEDS: methylPREDNISolone SOD SUC 40 MG/1 ML VIAL IV SCH ×4 (03:15→21:33)
[2017-12-23 05:32] LABS: Basophils % 0.1 % (0.0-0.8); Hemoglobin 8.7 GM/DL (12.0-16.0); Immature Granulocytes % 1.2 %; Immature Granulocytes Absolute 0.12 #; Lymphocytes # 0.4 10*3/uL (1.4-4.0); Mean Corpuscular Hemoglobin 28 PG (27-34); Mean Corpuscular Volume 92.1 FL (87-102); Mean Platelet Volume 9.2 FL (9.6-12.0); Monocytes # 0.2 10*3/uL (0.11-0.8); Monocytes % 1.8 % (1.7-12.7); Neutrophils # 9.5 10*3/uL (1.4-7.4); Neutrophils % 92.9 % (38.7-73.9); Platelet Count 196 T/CUMM (130-400); Red Blood Count 3.15 MC/CUMM (3.8-5.5); Red Cell Distribution Width 15.9 % (9.3-17.3); White Blood Count 10.2 T/CUMM (4-12)
[2017-12-23] MEDS: ALPRAZolam 0.5 MG TABLET PO SCH ×4 (05:48→21:34)
[2017-12-23 05:56] LABS: Hypochromasia 1+; Lymphocytes 2 % (20-55); Platelet Estimate Normal; Segmented Neutrophils 97 % (50-85); Total Cells Counted 100
[2017-12-23 06:09] LABS: Albumin 2.3 G/DL (3.4-5.0); Bilirubin,Total 0.4 MG/DL (0.2-1.0); Calcium 8.7 MG/DL (8.5-10.1); Total Protein 5.1 G/DL (6.4-8.3)
[2017-12-23] MEDS ORDERED: MIDAZOLAM 2 MG/2 ML VIAL ONE (08:31)
[2017-12-23] MEDS: CITALOPRAM 40 MG TABLET PO SCH (10:27)
[2017-12-23] MEDS: GABAPENTIN 300 MG CAPSULE PO SCH ×3 (10:27→21:34)
[2017-12-23] MEDS: MONTELUKAST 10 MG TABLET PO SCH (10:27)
[2017-12-23] MEDS: FLUCONAZOLE 100 MG TABLET PO SCH (10:30)
[2017-12-23] MEDS: PANTOPRAZOLE 40 MG TABLET PO SCH ×2 (10:32→21:34)
[2017-12-23] MEDS: CEFEPIME 1,000 MG in SYRINGE 1 EACH IV SCH ×2 (10:35→21:33)
[2017-12-23] MEDS: NYSTATIN 500,000 UNIT/5 ML UDCUP SWISH/SWAL SCH ×3 (13:41→21:33)
[2017-12-23] MEDS ORDERED: FUROSEMIDE 20 MG/2 ML VIAL IV ONE (14:00)
[2017-12-23] MEDS: oxyCODONE/ACETAMINOPHEN 5-325 MG TABLET PO SCH ×2 (15:00→21:34)
[2017-12-24] MEDS: ALBUTEROL/IPRATROPIUM 3 ML NEB RESP TX SCH ×4 (00:47→19:44)
[2017-12-24] MEDS: methylPREDNISolone SOD SUC 40 MG/1 ML VIAL IV SCH ×4 (02:21→21:13)
[2017-12-24] MEDS: oxyCODONE/ACETAMINOPHEN 5-325 MG TABLET PO SCH ×3 (05:07→21:13)
[2017-12-24] MEDS: GABAPENTIN 300 MG CAPSULE PO SCH ×3 (05:07→21:14)
[2017-12-24] MEDS: ALPRAZolam 0.5 MG TABLET PO SCH ×3 (05:07→21:14)
[2017-12-24 07:01] LABS: Basophils % 0.2 % (0.0-0.8); Hematocrit 29.3 VOL% (35.7-47.0); Hemoglobin 8.7 GM/DL (12.0-16.0); Immature Granulocytes % 2.7 %; Immature Granulocytes Absolute 0.17 #; Lymphocytes # 0.3 10*3/uL (1.4-4.0); Lymphocytes % 4.7 % (21.3-54.2); Mean Corpuscular HGB Conc 29.7 GM/DL (32-36); Mean Corpuscular Hemoglobin 27 PG (27-34); Mean Corpuscular Volume 91.6 FL (87-102); Mean Platelet Volume 9.1 FL (9.6-12.0); Monocytes # 0.1 10*3/uL (0.11-0.8); Monocytes % 2.1 % (1.7-12.7); Neutrophils # 5.6 10*3/uL (1.4-7.4); Neutrophils % 90.3 % (38.7-73.9); Platelet Count 189 T/CUMM (130-400); Red Cell Distribution Width 15.6 % (9.3-17.3); White Blood Count 6.2 T/CUMM (4-12)
[2017-12-24 07:23] LABS: Hypochromasia 2+; Lymphocytes 5 % (20-55); Platelet Estimate Normal; Segmented Neutrophils 93 % (50-85); Total Cells Counted 100
[2017-12-24 07:39] LABS: Albumin 2.3 G/DL (3.4-5.0); Bilirubin,Total 0.4 MG/DL (0.2-1.0); Calcium 8.4 MG/DL (8.5-10.1); Osmolality,Calculated 289.1 MOS/KG (273-304); Potassium 3.9 MMOL/L (3.5-5.1); Total Protein 5.2 G/DL (6.4-8.3)
[2017-12-24] MEDS: NYSTATIN 500,000 UNIT/5 ML UDCUP SWISH/SWAL SCH ×4 (08:52→21:14)
[2017-12-24] MEDS: FLUCONAZOLE 100 MG TABLET PO SCH (08:52)
[2017-12-24] MEDS: CITALOPRAM 40 MG TABLET PO SCH (08:52)
[2017-12-24] MEDS: MONTELUKAST 10 MG TABLET PO SCH (08:52)
[2017-12-24] MEDS: PANTOPRAZOLE 40 MG TABLET PO SCH ×2 (08:52→21:15)
[2017-12-24] MEDS ORDERED: PROPOFOL 200 MG/20 ML VIAL IV ONE (12:35)
[2017-12-24] MEDS ORDERED: LIDOCAINE 2% 5 ML VIAL ONE (12:35)
[2017-12-24] MEDS: CEFEPIME 1,000 MG in SYRINGE 1 EACH IV SCH ×2 (13:06→21:15)
[2017-12-24] MEDS: ENOXAPARIN 40 MG/0.4 ML SYRINGE SUBCUT SCH (13:07)
[2017-12-25] MEDS: ALBUTEROL/IPRATROPIUM 3 ML NEB RESP TX SCH ×2 (01:38→07:11)
[2017-12-25] MEDS: GABAPENTIN 300 MG CAPSULE PO SCH (06:17)
[2017-12-25] MEDS: ALPRAZolam 0.5 MG TABLET PO SCH (06:18)
[2017-12-25] MEDS: oxyCODONE/ACETAMINOPHEN 5-325 MG TABLET PO SCH (06:18)
[2017-12-25] MEDS ORDERED: METOCLOPRAMIDE 10 MG/10 ML UDCUP PO SCH (07:30)
[2017-12-25 08:10] VITALS: BP 156/83
[2017-12-25] MEDS: ENOXAPARIN 40 MG/0.4 ML SYRINGE SUBCUT SCH (08:47)
[2017-12-25] MEDS: CITALOPRAM 40 MG TABLET PO SCH (08:47)
[2017-12-25] MEDS: PANTOPRAZOLE 40 MG TABLET PO SCH (08:47)
[2017-12-25] MEDS: MONTELUKAST 10 MG TABLET PO SCH (08:47)
[2017-12-25] MEDS: FLUCONAZOLE 100 MG TABLET PO SCH (08:47)
[2017-12-25] MEDS: NYSTATIN 500,000 UNIT/5 ML UDCUP SWISH/SWAL SCH (08:48)
[2017-12-25] MEDS ORDERED: predniSONE 20 MG TABLET PO SCH (09:00)
[2017-12-25] MEDS ORDERED: CEFUROXIME 500 MG TABLET PO SCH (09:00)
== END 2017-12-25 12:10 | disposition home health service (06) | DRG 871 ==
LOC: EDSEX → EDUNIT# → EDBD → N.ED 23:47 → N.EDINP 12-21 00:29 → N.CC 12-21 01:46 → N.2E 12-21 16:48
PROVIDERS: ADMIT Hospitalist; ATTEND Hospitalist